=== PATIENT | male | born 1990 | race Caucasian/White ===

== ENCOUNTER 2017-06-19 16:53 | Emergency (ER) | payer SELFPAY, OTHER ==
[2017-06-19] MEDS: NS 1,000 ML IV (18:34)
[2017-06-19 18:41] LABS: BASO % 0.4 % (0.0-1.0); EOS # 0.4 10^3/uL (0.0-0.50); EOS % 3.6 % (0.0-3.0); IMMATURE GRANULOCYTE # 0.1 10^3/uL (0-0); IMMATURE GRANULOCYTE % 0.5 % (0-0); LYMPH # 2.4 10^3/uL (1.5-6.5); LYMPH % 23.3 % (24.0-44.0); MEAN CORPUSCULAR HEMOGLOBIN 30.2 pg (27.0-33.0); MEAN CORPUSCULAR HGB CONC 33.2 g/dl (32.0-36.5); MEAN CORPUSCULAR VOLUME 91.1 fl (80.0-96.0); MONO # 0.7 10^3/uL (0.0-0.8); MONO % 6.5 % (0.0-5.0); NEUTROPHILS # 6.9 10^3/uL (1.8-7.7); NEUTROPHILS % 65.7 % (36.0-66.0); PLATELET COUNT, AUTOMATED 254 10^3/uL (150-450); RED CELL DISTRIBUTION WIDTH 12.8 % (11.5-14.5); WHITE BLOOD COUNT 10.4 10^3/uL (4.0-10.0)
[2017-06-19 19:19] LABS: ALBUMIN 3.8 GM/DL (3.2-5.2); ALBUMIN/GLOBULIN RATIO 1.19 (1.00-1.93); ALKALINE PHOSPHATASE 69 U/L (45-117); ALT/SGPT 38 U/L (12-78); AMYLASE 43 U/L (25-115); ANION GAP 5 MEQ/L (8-16); AST/SGOT 18 U/L (7-37); BILIRUBIN,DIRECT < 0.1 MG/DL (0.0-0.2); BILIRUBIN,TOTAL 0.2 MG/DL (0.2-1.0); BLOOD UREA NITROGEN 16 MG/DL (7-18); CALCIUM LEVEL 8.2 MG/DL (8.5-10.1); CARBON DIOXIDE LEVEL 30 MEQ/L (21-32); CHLORIDE LEVEL 107 MEQ/L (98-107); CREATININE FOR GFR 0.76 MG/DL (0.70-1.30); GLOMERULAR FILTRATION RATE > 60.0 (>60); GLUCOSE, FASTING 92 MG/DL (70-105); POTASSIUM SERUM 4.4 MEQ/L (3.5-5.1); SODIUM LEVEL 142 MEQ/L (136-145)
== END 2017-06-19 20:34 | disposition home or self-care (01) ==
LOC: M ED 16:53
DX: R10.11 Right upper quadrant pain (principal); R19.7 Diarrhea, unspecified; K76.0 Fatty (change of) liver, not elsewhere classified
CPT/HCPCS: 76705

== ENCOUNTER 2017-06-28 12:28 | Emergency (ER) | payer SELFPAY | END 2017-06-28 13:57 | disposition left against medical advice (07) | LOC: M ED 12:28 | DX: Z53.21 Procedure and treatment not carried out due to patient leaving prior to being seen by health care provider (principal) | CPT/HCPCS: 99281 ==

== ENCOUNTER → 2018-12-30 | Outpatient (CLI) | payer OTHER ==
[~2018-12-30] MED LIST: ZOFR4TAB14 PO
[2018-12-30 13:45] LABS: HEMATOCRIT 42.4 % (42.0-52.0); HEMOGLOBIN 14.2 g/dl (13.5-17.5); MEAN CORPUSCULAR HEMOGLOBIN 30.5 pg (27.0-33.0); MEAN CORPUSCULAR HGB CONC 33.5 g/dl (32.0-36.5); PLATELET COUNT, AUTOMATED 222 10^3/uL (150-450); RED BLOOD COUNT 4.66 10^6/uL (4.30-6.10); WHITE BLOOD COUNT 6.8 10^3/uL (4.0-10.0)
[2018-12-30 14:12] LABS: ALBUMIN 3.8 GM/DL (3.2-5.2); ALT/SGPT 58 U/L (12-78); BILIRUBIN,TOTAL 0.1 MG/DL (0.2-1.0); BLOOD UREA NITROGEN 16 MG/DL (7-18); CALCIUM LEVEL 8.7 MG/DL (8.5-10.1); CARBON DIOXIDE LEVEL 31 MEQ/L (21-32); CHLORIDE LEVEL 106 MEQ/L (98-107); CREATININE FOR GFR 0.69 MG/DL (0.70-1.30); GLOMERULAR FILTRATION RATE > 60.0 (>60); GLUCOSE, FASTING 96 MG/DL (70-100); POTASSIUM SERUM 4.6 MEQ/L (3.5-5.1); SODIUM LEVEL 140 MEQ/L (136-145); TOTAL PROTEIN 7.1 GM/DL (6.4-8.2)
[2018-12-30 14:31] LABS: HEPATITIS B SURFACE ANTIGEN NEGATIVE (NEGATIVE)
[2018-12-30 14:59] LABS: HEPATITIS C VIRUS ABY INDEX 0.1 INDEX (<0.8); HIV 1&2 SCREEN CENTAUR NEGATIVE (NEGATIVE)
[2018-12-30 15:21] LABS: CHLAMYDIA DNA AMPLIFICATION NEGATIVE (NEGATIVE); GC DNA AMPLIFICATION NEGATIVE (NEGATIVE)
--- NOTE | 2018-12-30 15:33 | ECGEPIP ---
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
== END ==
LOC: M LAB 12:51
PROVIDERS: ATTEND Family Medicine
DX: F11.20 Opioid dependence, uncomplicated (principal)

== ENCOUNTER 2019-01-15 01:13 | Emergency (ER) | payer OTHER ==
[~2019-01-15] VITALS: Ht 175.3 cm; Wt 134.1 kg
[2019-01-15 01:13] VITALS: BP 142/70
[2019-01-15] MEDS ORDERED: IPRATROPIUM 0.5MG/ALBUTEROL 2.5MG INH SOL UD 3ML (DUONEB)(J7620) NEB ONE (04:45)
[2019-01-15] MEDS ORDERED: ACETAMINOPHEN TAB 650MG DOSE (2X325MG) PO ONE (04:45)
[2019-01-15 05:25] LABS: BASO % 0.2 % (0.0-1.0); EOS # 0.2 10^3/uL (0.0-0.50); EOS % 1.3 % (0.0-3.0); HEMATOCRIT 40.3 % (42.0-52.0); HEMOGLOBIN 13.4 g/dl (13.5-17.5); LYMPH # 3.2 10^3/uL (1.5-6.5); LYMPH % 20.2 % (24.0-44.0); MEAN CORPUSCULAR HEMOGLOBIN 30.9 pg (27.0-33.0); MEAN CORPUSCULAR HGB CONC 33.3 g/dl (32.0-36.5); MEAN CORPUSCULAR VOLUME 93.1 fl (80.0-96.0); MONO # 1.1 10^3/uL (0.0-0.8); MONO % 6.7 % (0.0-5.0); NEUTROPHILS # 11.4 10^3/uL (1.8-7.7); NEUTROPHILS % 71.3 % (36.0-66.0); PLATELET COUNT, AUTOMATED 203 10^3/uL (150-450); RED BLOOD COUNT 4.33 10^6/uL (4.30-6.10); WHITE BLOOD COUNT 15.9 10^3/uL (4.0-10.0)
[2019-01-15 05:44] LABS: BLOOD UREA NITROGEN 13 MG/DL (7-18); CALCIUM LEVEL 8.3 MG/DL (8.5-10.1); CARBON DIOXIDE LEVEL 30 MEQ/L (21-32); CHLORIDE LEVEL 105 MEQ/L (98-107); CREATININE FOR GFR 0.76 MG/DL (0.70-1.30); GLOMERULAR FILTRATION RATE > 60.0 (>60); GLUCOSE, FASTING 90 MG/DL (70-100); POTASSIUM SERUM 4.6 MEQ/L (3.5-5.1); SODIUM LEVEL 140 MEQ/L (136-145)
[2019-01-15] MEDS ORDERED: PRED5PAK PO (05:55)
[2019-01-15] MEDS ORDERED: AZIT-12 PO (05:55)
[2019-01-15] MEDS ORDERED: AZITHROMYCIN 250 MG TAB PO ONE (06:00)
--- NOTE | 2019-01-17 15:01 | REP ---
PA and lateral chest: Comparison is 10/28/2015. The lung ibrahim are clear. The cardiac size is normal. The nguyen, mediastinum, and skeletal structures are unremarkable. Impression: Negative PA and lateral chest. There is no interval change. Electronically Signed by Ap Medeiros MD 01/15/2019 07:37 A
== END 2019-01-15 06:24 | disposition home or self-care (01) ==
LOC: M ED 01:13
DX: J20.9 Acute bronchitis, unspecified (principal); D72.829 Elevated white blood cell count, unspecified; R07.1 Chest pain on breathing; F17.210 Nicotine dependence, cigarettes, uncomplicated

== ENCOUNTER 2019-02-28 12:38 | Emergency (ER) | payer OTHER ==
[~2019-02-28] VITALS: Ht 175.3 cm; Wt 138.6 kg
[2019-02-28 12:38] VITALS: BP 140/59
[~2019-02-28 12:38] MED LIST changes: +AZIT-12 PO; +PRED5PAK PO
[2019-02-28] MEDS ORDERED: KETOROLAC TROMETHAMINE 10 MG TAB PO ONE (14:15)
== END 2019-02-28 16:46 | disposition left against medical advice (07) ==
LOC: M ED 12:38
DX: S79.922A Unspecified injury of left thigh, initial encounter (principal); W01.0XXA Fall on same level from slipping, tripping and stumbling without subsequent striking against object, initial encounter; Y92.018 Other place in single-family (private) house as the place of occurrence of the external cause; G47.33 Obstructive sleep apnea (adult) (pediatric)

== ENCOUNTER 2020-06-07 17:25 | Emergency (ER) | payer OTHER ==
[~2020-06-07] VITALS: Ht 172.7 cm; Wt 140.9 kg
[~2020-06-07 17:25] MED LIST changes: +AMLO1TAB24 PO; +CLON0.3T PO; +METO1TAB87 PO
[2020-06-07 18:30] VITALS: BP 143/72
[2020-06-08] MEDS ORDERED: METH10SO PO (07:56)
== END 2020-06-07 19:15 | disposition home or self-care (01) ==
LOC: EDBD 17:25 → M ED 17:25
DX: J38.7 Other diseases of larynx (principal); F11.10 Opioid abuse, uncomplicated; F17.210 Nicotine dependence, cigarettes, uncomplicated

== ENCOUNTER 2020-06-08 06:41 | Inpatient (IN) | payer OTHER ==
[~2020-06-08] VITALS: Ht 172.7 cm; Wt 139.5 kg
[2020-06-08] VITALS (16 sets, daily range): BP systolic 109–136; BP diastolic 54–72; O2SAT 96–100
[2020-06-08] MEDS ORDERED: ROCURONIUM BROMIDE 50 MG/5 ML VIAL IV ONE (07:15)
[2020-06-08] MEDS ORDERED: ETOMIDATE INJ 20MG/10ML VIAL IV ONE (07:15)
[2020-06-08] MEDS ORDERED: PIPERACILLIN/TAZOBACTAM SOD 3.375 GM in D5W MINI-BAG PLUS 50 ML IV ONE (07:30)
[2020-06-08] MEDS ORDERED: VANCOMYCIN HCL 2,000 MG in D5W 500 ML IV ONE (07:30)
[2020-06-08] MEDS: propofoL 1,000 MG in IV 1 EA IV SCH ×12 (07:35→23:45)
[2020-06-08 07:38] LABS: ABG BASE EXCESS -2.5 (-2.0-2.0); ABG HCO3 28.6 MEQ/L (22.0-26.0); ABG O2 SATURATION 95.9 % (95.0-99.0); ABG PARTIAL PRESSURE O2 102.1 mmHg (75.0-100.0); ABG STANDARD HCO3 22.4 MEQ/L (22.0-26.0); ABG TOTAL CO2 31.2 MEQ/L (22.0-29.0)
[2020-06-08 07:40] LABS: ABG PARTIAL PRESSURE CO2 85.5 mmHg (35.0-45.0); ABG pH (ARTERIAL) 7.142 UNITS (7.350-7.450)
--- NOTE | 2020-06-08 07:43 | REP ---
INDICATION: DYSPNEA/COUGH COMPARISON: 01/15/2019 TECHNIQUE: Portable AP view of the chest FINDINGS: Endotracheal tube approximately 1.6 cm above the sid and may warrant repositioning. There appears to be near complete collapse to the right upper lobe along with large left upper lobe consolidation and right perihilar airspace disease. Associated volume loss is noted. No obvious effusion or pneumothorax. The cardiac silhouette is within normal limits for portable technique and stable compared to 2019. Skeletal structures appear intact. IMPRESSION: 1. Endotracheal tube 1.6 cm above the sid. 2. Findings suggesting right upper lobe collapse with multifocal, bilateral infiltrates. <Electronically signed by Alexandro Redd > 06/08/20 [id number]
[2020-06-08] MEDS ORDERED: METH10SO PO (07:56)
[2020-06-08] MEDS ORDERED: VANCOMYCIN HCL 1,000 MG, VIAL MATE ADAPTER 1 EACH in D5W 250 ML IV ONE ×4 (08:00→14:00)
[2020-06-08 08:55] LABS: BASO % 0.1 % (0.0-1.0); EOS % 0.1 % (0.0-3.0); HEMATOCRIT 38.8 % (42.0-52.0); HEMOGLOBIN 11.6 g/dl (13.5-17.5); LYMPH # 0.7 10^3/uL (1.5-5.0); LYMPH % 7.8 % (24.0-44.0); MEAN CORPUSCULAR HEMOGLOBIN 29.6 pg (27.0-33.0); MEAN CORPUSCULAR HGB CONC 29.9 g/dl (32.0-36.5); MONO # 0.1 10^3/uL (0.0-0.8); MONO % 1.6 % (0.0-5.0); NEUTROPHILS # 7.7 10^3/uL (1.5-8.5); NEUTROPHILS % 89.9 % (36.0-66.0); PLATELET COUNT, AUTOMATED 161 10^3/uL (150-450); RED BLOOD COUNT 3.92 10^6/uL (4.30-6.10); WHITE BLOOD COUNT 8.5 10^3/uL (4.0-10.0)
[2020-06-08 09:05] LABS: AMPHETAMINES LEVEL URINE NEGATIVE (NEGATIVE); BARBITURATES URINE NEGATIVE (NEGATIVE); BENZODIAZEPINES URINE NEGATIVE (NEGATIVE); CANNABINOIDS URINE POSITIVE (NEGATIVE); COCAINE METABOLITE URINE NEGATIVE (NEGATIVE); METHADONE URINE POSITIVE (NEGATIVE); OPIATES URINE NEGATIVE (NEGATIVE); PHENCYCLIDINE URINE NEGATIVE (NEGATIVE)
[2020-06-08 09:18] LABS: ALBUMIN 3.5 GM/DL (3.2-5.2); ALT/SGPT 75 U/L (12-78); BILIRUBIN,DIRECT 0.2 MG/DL (0.0-0.2); BILIRUBIN,TOTAL 0.3 MG/DL (0.2-1.0); BLOOD UREA NITROGEN 9 MG/DL (7-18); CALCIUM LEVEL 8.3 MG/DL (8.5-10.1); CARBON DIOXIDE LEVEL 29 MEQ/L (21-32); CHLORIDE LEVEL 103 MEQ/L (98-107); CK-MB VALUE MASS 3.5 NG/ML (<3.6); CPK CREATINE PHOSPHOKINASE 228 U/L (39-308); CREATININE FOR GFR 0.76 MG/DL (0.70-1.30); ETHYL ALCOHOL (ETHANOL) 0.003 % (0.000-0.010); GLOMERULAR FILTRATION RATE > 60.0 (>60); GLUCOSE, FASTING 227 MG/DL (70-100); MB/CK RELATIVE INDEX 1.54 (< OR =4); NT-PRO BNP 810 PG/ML (<125); POTASSIUM SERUM 3.8 MEQ/L (3.5-5.1); SODIUM LEVEL 140 MEQ/L (136-145); TOTAL PROTEIN 6.7 GM/DL (6.4-8.2); TROPONIN I 0.08 NG/ML (< 0.10)
[2020-06-08] MEDS ORDERED: PROPOFOL 1,000 MG/100 ML VIAL As Ordered ONE (10:02)
[2020-06-08] MEDS: ALBUTEROL SULFATE 2.5 MG/0.5 ML INH NEB SOLN NEB SCH ×4 (11:02→23:20)
[2020-06-08 11:21] LABS: ABG BASE EXCESS 2.4 (-2.0-2.0); ABG HCO3 28.5 MEQ/L (22.0-26.0); ABG O2 SATURATION 72.8 % (95.0-99.0); ABG PARTIAL PRESSURE CO2 51.1 mmHg (35.0-45.0); ABG STANDARD HCO3 26.1 MEQ/L (22.0-26.0); ABG TOTAL CO2 30.1 MEQ/L (22.0-29.0); ABG pH (ARTERIAL) 7.365 UNITS (7.350-7.450)
[2020-06-08 11:23] LABS: ABG PARTIAL PRESSURE O2 39.2 mmHg (75.0-100.0)
[2020-06-08 11:30] LABS: INR 0.86; PROTHROMBIN TIME 11.9 SECONDS (12.5-14.3)
[2020-06-08 11:34] LABS: D-DIMER QUANT 1114.69 ng/ml (<500)
[2020-06-08 12:07] LABS: ALBUMIN 3.3 GM/DL (3.2-5.2); BILIRUBIN,DIRECT 0.2 MG/DL (0.0-0.2); BILIRUBIN,TOTAL 0.5 MG/DL (0.2-1.0); C REACTIVE PROTEIN QUANTITATIV 0.59 MG/DL (0.00-0.30); TROPONIN I 0.24 NG/ML (< 0.10)
[2020-06-08] MEDS: ENOXAPARIN 80MG/0.8ML SYRINGE (J1650 PER 10MG) SC SCH ×2 (12:08→22:04)
[2020-06-08] MEDS: dexameTHASONE 20MG/5ML VIAL (J1100 PER 1MG) IV SCH ×2 (12:08→22:03)
[2020-06-08] MEDS: PANTOPRAZOLE 40MG VIAL (C9113 PER 1) IV SCH (12:08)
[2020-06-08] MEDS ORDERED: SODIUM CHLORIDE 0.9% INJ 10 ML SYR IV ONE (13:00)
[2020-06-08] MEDS ORDERED: propofoL 200 MG/20 ML VIAL ONE (14:31)
[2020-06-08] MEDS ORDERED: ETOMIDATE INJ 20MG/10ML VIAL ONE (14:31)
[2020-06-08] MEDS: PIPERACILLIN/TAZOBACTAM SOD 4.5 GM in D5W MINI-BAG PLUS 50 ML IV SCH ×2 (15:00→20:08)
--- NOTE | 2020-06-08 17:15 | CCN ---
CRITICAL CARE NOTE DATE: 06/08/2020 CRITICAL CARE TIME: 2 hours and 30 minutes, this excludes all procedures. SUBJECTIVE: I was called to the patient's bedside. Apparently, the patient has been having numerous emergency room visits for complaints of upper airway issues. The patient had a CT scan of the neck. This was during the first emergency room evaluation. The second emergency room evaluation, which was yesterday, did not repeat any imaging. I was actually called. I was not consulted. I did not see the patient, but I was called as side consult as the patient had claimed to be intubated for 25 days in [place]. 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 [place] that by the time of discharge that this pneumonia had resolved. This was in April. On yesterday's presentation according to the nurse practitioner who saw the patient in the emergency room, the patient had no stridor. The patient was conversing well without any issues and with 100% oxygen saturation on room air. There was no chest imaging performed yesterday, no respiratory viral panel performed yesterday. The patient was discharged home with potential follow up with ENT, although that is not clear by the documentation. The patient then presented this morning with severe hypoxia that is in the 50% range, was intubated, apparently a very difficult intubation by the emergency room physician, who was unable to intubate the patient despite his large size with an 8.0 endotracheal tube and had to covert to a 6.0 endotracheal tube. He states there is a lot of stenosis of the airway. The patient apparently did self extubate at [facility]. (later when speaking with mom, she states he pulled out his NGT not ETT) Therefore, will continue to keep the patient very sedated. It does appear most likely the patient will require tracheostomy in order to facility extubation. The biggest confounding issue is now the patient is COVID positive, I believe he has COVID pneumonia and he has bilateral diffuse infiltrates. There is a bit more dense more infiltrate in the right upper lobe; however, I believe this is from right mainstem intubation. The patient on evaluation at bedside is sedated. No one available to give history. The emergency room did request records from [facility] where he was admitted from 04/30/2020 to 05/27/2020. He had altered level of consciousness thought to be second to his substance abuse. He had acute respiratory failure with hypoxia due to his drug use events and encephalopathy. They felt that the right lower lobe infection due to multidrug resistance Acetobacter was resolved. PAST MEDICAL HISTORY: 1. Hypertension. 2. 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 3. Morbid obesity. 4. Possible laryngeal tracheal trauma from intubation. Home meds: clonidine and amlodipine REVIEW OF SYSTEMS: Unobtainable. SOCIAL HISTORY: Unobtainable. FAMILY HISTORY: Unobtainable. PHYSICAL EXAMINATION: Temperature is 97.6, pulse is 85, respiratory rate 24, blood pressure is 121/53. Oxygen saturation currently 98% on 1.0 FiO2 on mechanical ventilation, volume control, tidal volume of 420, respiratory rate of 16 and a PEEP of 5. General: Sedated on mechanical ventilation. Restraints are in place because of his history of withdrawing endotracheal tubes and the severity of his airway. HEENT: Sclerae are clear. Pupils are pinpoint, but reactive. Mucous membranes are moist. Teeth in fairly good condition. Neck is supple. Large circumference without mass or lesion. Lymph: No cervical, supraclavicular or axillary adenopathy. Cardiac: Distance S1, S2 without audible murmur, rub or gallop. No elevated JVP. There is significant peripheral edema pitting to the level of the knee. Pulmonary: In general, clear, but distant breath sounds. No rales, rhonchi or wheezes. No dullness to percussion. No accessory muscle use. Abdomen is obese without discernible hepatosplenomegaly. No masses or hernia. There are few bruises over the anterior portion of his abdomen. I assume this is an area of prior Lovenox injections. Extremities: No cyanosis or clubbing. There is edema as mentioned above. Skin pale without rashes, jaundice or bruising. Neurologic: No motion at this point in time. No purposeful movements. However, the patient did have purposeful movements prior to intubation. Has been sedated to avoid removal of endotracheal tube. LABORATORY EVALUATION: Shows arterial blood gas 7.214, pCO2 of 86 and a pO2 of 102. White blood cell count is 8.5, hemoglobin 11.6, hematocrit of 38.8 and a platelet count of 161 with 89% neutrophilia. Lactic acid is 2.3. Sodium is 140, potassium is 3.8, chloride 103, bicarbonate 29, BUN of 9, creatinine of 0.76 and a fasting glucose of 227. Calcium is 8.3. AST 84. BNP elevated at 810. Troponin is negative. Albumin is normal at 3.5. His urine from this morning is positive for methadone and cannabinoids. Alcohol level is unremarkable. COVID serologies are still pending The patient is COVID positive on respiratory panel. Chest x-ray shows diffuse infiltrate with right mainstem intubation. Endotracheal tube has been pulled back with some improvement of the right upper lobe. Electrocardiogram (EKG) shows a normal sinus rhythm with a pulse of 85. No evidence of ST abnormalities. IMPRESSION: 1. Acute hypoxic respiratory failure from COVID, 2. Pneumonia. I placed the patient on remdesivir, obtaining his inflammatory markers. Depending on the results of this, may be a candidate for tocilizumab. Will place the patient on dexamethasone. I placed him on prophylactic antibiotics because of the severity of his illness. 3. Drug abuse with chronic methadone. I am not sure that he has adequate sedation narcotics and treatment of pain. Will monitor for signs o f withdrawal. 4. Morbid obesity with difficult airway. Would likely need tracheostomy. It should be done when clinically appropriate. Waiting 10 days prior to attempting tracheostomy may lead to avoidable complications and worsening stenosis. 5. . As far as the deep venous thrombosis (DVT) prophylaxis he is on, Lovenox high dose twice a day. 6. Gastrointestinal prophylaxis with Protonix, TEDs and [place]. Overall, the patient has very guarded prognosis Critical care time was 2 hours and 30 minutes. This excludes all procedures. [facility]
[2020-06-08] MEDS: CHLORHEXIDINE GLUCONATE 0.12 % 15ML UDC (PERIDEX ORAL RINSE) MT SCH (20:08)
[2020-06-08] MEDS: MIDAZOLAM INJ 2MG/2ML VIAL (J2250 PER 1MG) IV PRN (20:09)
[2020-06-08] MEDS: MORPHINE 2 MG/ML 1ML VIAL (J2270) IV PRN (20:09)
[2020-06-08] MEDS: VANCOMYCIN HCL 1,000 MG, VIAL MATE ADAPTER 1 EACH in D5W 250 ML IV SCH (22:04)
[2020-06-09] VITALS (26 sets, daily range): BP systolic 113–174; BP diastolic 55–78; O2SAT 99–100
[2020-06-09] MEDS: propofoL 1,000 MG in IV 1 EA IV SCH ×18 (00:38→23:42)
[2020-06-09] MEDS: MIDAZOLAM INJ 2MG/2ML VIAL (J2250 PER 1MG) IV PRN ×8 (03:20→23:41)
[2020-06-09] MEDS: PIPERACILLIN/TAZOBACTAM SOD 4.5 GM in D5W MINI-BAG PLUS 50 ML IV SCH ×4 (03:20→21:05)
[2020-06-09] MEDS: MORPHINE 2 MG/ML 1ML VIAL (J2270) IV PRN (03:33)
[2020-06-09] MEDS: VANCOMYCIN HCL 1,000 MG, VIAL MATE ADAPTER 1 EACH in D5W 250 ML IV SCH ×4 (04:16→23:20)
[2020-06-09] MEDS: ALBUTEROL SULFATE 2.5 MG/0.5 ML INH NEB SOLN NEB SCH ×6 (04:27→23:31)
[2020-06-09 04:32] LABS: HEMATOCRIT 33.3 % (42.0-52.0); HEMOGLOBIN 10.6 g/dl (13.5-17.5); MEAN CORPUSCULAR HEMOGLOBIN 29.6 pg (27.0-33.0); MEAN CORPUSCULAR HGB CONC 31.8 g/dl (32.0-36.5); PLATELET COUNT, AUTOMATED 163 10^3/uL (150-450); RED BLOOD COUNT 3.58 10^6/uL (4.30-6.10); WHITE BLOOD COUNT 4.3 10^3/uL (4.0-10.0)
[2020-06-09 04:44] LABS: D-DIMER QUANT 796.76 ng/ml (<500)
[2020-06-09 05:06] LABS: BLOOD UREA NITROGEN 11 MG/DL (7-18); CALCIUM LEVEL 8.4 MG/DL (8.5-10.1); CARBON DIOXIDE LEVEL 29 MEQ/L (21-32); CHLORIDE LEVEL 106 MEQ/L (98-107); CREATININE FOR GFR 0.94 MG/DL (0.70-1.30); GLOMERULAR FILTRATION RATE > 60.0 (>60); GLUCOSE, FASTING 130 MG/DL (70-100); POTASSIUM SERUM 3.7 MEQ/L (3.5-5.1); SODIUM LEVEL 142 MEQ/L (136-145)
[2020-06-09 05:07] LABS: ALBUMIN 3.1 GM/DL (3.2-5.2); ALT/SGPT 53 U/L (12-78); BILIRUBIN,DIRECT 0.3 MG/DL (0.0-0.2); BILIRUBIN,TOTAL 0.5 MG/DL (0.2-1.0); C REACTIVE PROTEIN QUANTITATIV 0.98 MG/DL (0.00-0.30); FERRITIN 145 NG/ML (26-388); TOTAL PROTEIN 5.7 GM/DL (6.4-8.2)
[2020-06-09 05:49] LABS: ABG BASE EXCESS 0.8 (-2.0-2.0); ABG HCO3 25.4 MEQ/L (22.0-26.0); ABG O2 SATURATION 99.1 % (95.0-99.0); ABG PARTIAL PRESSURE CO2 40.2 mmHg (35.0-45.0); ABG PARTIAL PRESSURE O2 150.2 mmHg (75.0-100.0); ABG STANDARD HCO3 25.3 MEQ/L (22.0-26.0); ABG TOTAL CO2 26.6 MEQ/L (22.0-29.0); ABG pH (ARTERIAL) 7.418 UNITS (7.350-7.450)
[2020-06-09] MEDS: CHLORHEXIDINE GLUCONATE 0.12 % 15ML UDC (PERIDEX ORAL RINSE) MT SCH ×2 (09:00→21:04)
--- NOTE | 2020-06-09 10:02 | CCN ---
CRITICAL CARE NOTE DATE: 06/09/2020 Critical care time is 69 minutes. This excludes all procedures. SUBJECTIVE: Mr. Saavedra remains on mechanical ventilation, sedated. He does arouse easily with lightening of sedation. Currently oxygen saturation is 99% on 0.50 FiO2. I have turned him down to 35%. He has no fever or arrhythmias overnight. COVID therapy is initiated. His inflammatory markers are trending down. I have not used Tocilizumab as of yet. PHYSICAL EXAMINATION: VITAL SIGNS: Temperature is 98.1, pulse is 95, respiratory rate of 20, blood pressure is 133/63. Mean arterial pressure of 86, 99% on 0.50 FiO2. GENERAL APPEARANCE: Sedated, on mechanical ventilation, no tachypnea, tachycardia. HEENT: Sclerae clear and anicteric. Pupils small but reactive. They are symmetric. Mucous membranes are moist. Tongue is midline. NECK: Supple, no tracheal deviation or mass. LYMPH: No cervical, supraclavicular or axillary adenopathy. CARDIAC: Regular, S1, S2, without audible murmurs, rubs or gallops. No elevated JVP. Minimal peripheral edema. PULMONARY: Clear to auscultation without rales, rhonchi or wheezes. ABDOMEN: Soft, nontender, nondistended, no hepatosplenomegaly. No masses or hernia. EXTREMITIES: No cyanosis. Clubbing with minimal edema. SKIN: Pale without rash, jaundice or bruising. LABORATORY EVALUATION: White blood cell count of 4.3, hemoglobin 10.6, platelet count of 163 with a sodium of 142, potassium 3.7, chloride 106, bicarbonate of 29, BUN 11, creatinine of 0.94 with a fasting glucose of 130. Calcium is 8.4. Total bilirubin 0.5, albumin is 3.1. CRP is 0.98. Ferratin is 145. D-dimer is down to 796. Lactic acid at 1.5. LDH is 303 as of yesterday. It has not been reported yet today although it has been ordered. Arterial blood gas shows a pH of 7.42, pco2 of 40, pO2 of 150. IMPRESSION: 1. Hypoxic respiratory failure with difficult airway; may need tracheostomy given the description of the airway, his prior intubation and possible tracheal stenosis. We will continue to monitor him on mechanical ventilation. I will consult ENT, when they are available tomorrow as there is no one covering this weekend. 2. As far as his COVID pneumonia, we are continuing Decadron and Remdesivir. At this point in time, no indication for Tocilizumab. 3. DVT prophylaxis with high dose Lovenox based on his weight. 4. GI prophylaxis with Protonix. 5. Nutrition: we will support him with nutrition starting tube feeds today. If he tolerates these well, these will be titrated up. 6. He is on Vancomycin and Zosyn. We will discontinue after a few days if he continues to show clinical improvement. It does appear that this was viral. At this point in time in there is no evidence of bacterial concomitant infection. CONDITION: The patient's prognosis remains very guarded especially given his tenuous airway. MTDD
[2020-06-09] MEDS: ENOXAPARIN 80MG/0.8ML SYRINGE (J1650 PER 10MG) SC SCH ×2 (10:34→21:05)
[2020-06-09] MEDS: PANTOPRAZOLE 40MG VIAL (C9113 PER 1) IV SCH (11:56)
[2020-06-09] MEDS: dexameTHASONE 20MG/5ML VIAL (J1100 PER 1MG) IV SCH ×2 (11:56→23:20)
--- NOTE | 2020-06-09 12:20 | ECGEPIP ---
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
[2020-06-09] MEDS: SODIUM CHLORIDE 0.9% INJ 10 ML SYR IV SCH (13:11)
[2020-06-10] VITALS (24 sets, daily range): BP systolic 119–178; BP diastolic 57–111; O2SAT 100
[2020-06-10] MEDS: PIPERACILLIN/TAZOBACTAM SOD 4.5 GM in D5W MINI-BAG PLUS 50 ML IV SCH ×4 (03:03→20:37)
[2020-06-10] MEDS: ALBUTEROL SULFATE 2.5 MG/0.5 ML INH NEB SOLN NEB SCH ×5 (03:36→19:55)
[2020-06-10] MEDS: VANCOMYCIN HCL 1,000 MG, VIAL MATE ADAPTER 1 EACH in D5W 250 ML IV SCH ×2 (04:59→11:46)
[2020-06-10] MEDS: propofoL 1,000 MG in IV 1 EA IV SCH ×12 (04:59→22:24)
[2020-06-10 05:49] LABS: HEMATOCRIT 34.6 % (42.0-52.0); HEMOGLOBIN 10.9 g/dl (13.5-17.5); MEAN CORPUSCULAR HEMOGLOBIN 29.4 pg (27.0-33.0); MEAN CORPUSCULAR HGB CONC 31.5 g/dl (32.0-36.5); MEAN CORPUSCULAR VOLUME 93.3 fl (80.0-96.0); PLATELET COUNT, AUTOMATED 194 10^3/uL (150-450); RED BLOOD COUNT 3.71 10^6/uL (4.30-6.10); WHITE BLOOD COUNT 4.2 10^3/uL (4.0-10.0)
[2020-06-10 05:55] LABS: ABG BASE EXCESS 4.8 (-2.0-2.0); ABG HCO3 29.1 MEQ/L (22.0-26.0); ABG O2 SATURATION 96.8 % (95.0-99.0); ABG PARTIAL PRESSURE CO2 42.1 mmHg (35.0-45.0); ABG PARTIAL PRESSURE O2 88.7 mmHg (75.0-100.0); ABG STANDARD HCO3 28.8 MEQ/L (22.0-26.0); ABG TOTAL CO2 30.4 MEQ/L (22.0-29.0); ABG pH (ARTERIAL) 7.458 UNITS (7.350-7.450)
[2020-06-10 06:11] LABS: ALT/SGPT 80 U/L (12-78); BILIRUBIN,TOTAL 0.5 MG/DL (0.2-1.0); BLOOD UREA NITROGEN 10 MG/DL (7-18); C REACTIVE PROTEIN QUANTITATIV 0.55 MG/DL (0.00-0.30); CALCIUM LEVEL 8.5 MG/DL (8.5-10.1); CARBON DIOXIDE LEVEL 29 MEQ/L (21-32); CHLORIDE LEVEL 106 MEQ/L (98-107); CREATININE FOR GFR 0.76 MG/DL (0.70-1.30); FERRITIN 131 NG/ML (26-388); GLOMERULAR FILTRATION RATE > 60.0 (>60); GLUCOSE, FASTING 135 MG/DL (70-100); POTASSIUM SERUM 3.6 MEQ/L (3.5-5.1); SODIUM LEVEL 141 MEQ/L (136-145); TOTAL PROTEIN 5.8 GM/DL (6.4-8.2)
[2020-06-10] MEDS: MIDAZOLAM INJ 2MG/2ML VIAL (J2250 PER 1MG) IV PRN ×9 (08:08→19:22)
[2020-06-10] MEDS: MORPHINE 2 MG/ML 1ML VIAL (J2270) IV PRN ×4 (08:35→19:13)
[2020-06-10] MEDS: HEPARIN SOD (PORCINE) 5000UNITS/ML 1ML VIAL/SYRINGE SQ SCH ×2 (09:12→16:29)
[2020-06-10] MEDS: CHLORHEXIDINE GLUCONATE 0.12 % 15ML UDC (PERIDEX ORAL RINSE) MT SCH ×2 (09:12→20:37)
--- NOTE | 2020-06-10 09:38 | CCN ---
CRITICAL CARE NOTE DATE: 06/10/2020 CRITICAL CARE TIME: 49 minutes; this excludes all procedures. SUBJECTIVE: The patient is awake on sedation vacation this morning. Placed on spontaneous breathing trial of 5/8. Pulling tidal volumes of around 530. Does have an air leak around a 6.0 endotracheal tube. This is at 22 cm at the lip. History of difficult intubation. No arrhythmias on telemetry overnight. OBJECTIVE: VITAL SIGNS: Temperature is 98.8, pulse is 87, respiratory rate is 22, blood pressure 160/75 with a mean arterial pressure of 103. Oxygen saturation on 0.30 FiO2 is 97%. GENERAL: Awake, responsive to command. Showing higher level neurologic function. HEENT: Sclerae clear and anicteric. Pupils equal and reactive to light. Mucous membranes are moist without lesions. Oropharynx is crowded without erythema or exudate. Tongue is midline. NECK: Supple. No tracheal deviation or mass. LYMPH: No cervical, supraclavicular, or axillary adenopathy. CARDIAC: Regular S1, S2 without audible murmur, rub, or gallop. No elevated JVP. There is minimal lower extremity edema. PULMONARY: Clear to auscultation without rales, rhonchi, or wheezes. No dullness to percussion. No accessory muscle. ABDOMEN: Obese, soft, nontender, and nondistended. No hepatosplenomegaly. No masses or hernia. EXTREMITIES: No cyanosis, clubbing, or edema. SKIN: There is minimal bruising under the left thigh. No jaundice or rash. MUSCULOSKELETAL: Normal muscle development. No evidence of fracture or joint effusion. NEUROLOGIC: No unilateral weakness. No tremor. No asterixis. Able to follow commands and moves all extremities appropriately. LABORATORY EVALUATION: Shows a white blood cell count of 4.2, hemoglobin of 10.9, platelet count of 194,000. Sodium is 141, potassium 3.6, chloride 106, bicarb 29, BUN 10, creatinine 0.76 with a glucose of 135. Arterial blood gas shows a pH of 7.46, pCO2 of 42, PaO2 of 88.7 on 0.30 FiO2. Calcium is 8.5. Ferritin down to 131. CRP down to 0.55. Total protein of 5.8 with an albumin of 3.0. D-dimer is down to 453. IMAGING: Chest x-ray is pending for this morning. IMPRESSION: 1. Respiratory failure from COVID pneumonia. It does appear that the patient is nearing extubation. I have placed him on a spontaneous breathing trial today. At this point in time, inflammatory markers are trending down. No indication for tocilizumab. Remains on remdesivir and steroids. Because of his bruising and obesity, I am decreasing his Lovenox to regular prophylactic doses as his D-dimer is lower. 2. Reported upper airway stenosis. He has a good air leak on exam. I expect he will be extubatable rather than proceeding with trach; however, I am asking ENT to do an upper laryngoscopy. 3. Hypertension: The patient has a history of hypertension. I will add Norvasc back on today. RYAND
--- NOTE | 2020-06-10 09:42 | REP ---
INDICATION: respiratory failure/covid COMPARISON: None. TECHNIQUE: Portable AP view of the chest FINDINGS: Endotracheal tube and nasogastric tube are in satisfactory stable position. The mediastinum and cardiac silhouette are stable and within normal limits for portable technique. Previously noted right upper lobe infiltrate has resolved and scattered bilateral opacities are significantly improved with mild residual bilateral perihilar and right basilar opacities suggested on current examination. No effusion. No pneumothorax. IMPRESSION: 1. Lines and tubes in satisfactory position. 2. Considerable improvement to the bilateral lung ibrahim. <Electronically signed by Alexandro Redd > 06/10/20 [id number]
[2020-06-10] MEDS: dexameTHASONE 20MG/5ML VIAL (J1100 PER 1MG) IV SCH ×2 (10:33→22:24)
[2020-06-10] MEDS: amLODIPine 10 MG TAB PO SCH (10:33)
[2020-06-10] MEDS: PANTOPRAZOLE 40MG VIAL (C9113 PER 1) IV SCH (11:46)
[2020-06-10] MEDS: SODIUM CHLORIDE 0.9% INJ 10 ML SYR IV SCH ×2 (13:04→14:44)
[2020-06-10] MEDS ORDERED: MIDAZOLAM INJ 2MG/2ML VIAL (J2250 PER 1MG) IV STA (19:28)
[2020-06-11] VITALS (17 sets, daily range): BP systolic 129–193; BP diastolic 60–89
[2020-06-11] MEDS: propofoL 1,000 MG in IV 1 EA IV SCH ×6 (01:35→09:12)
[2020-06-11] MEDS: PIPERACILLIN/TAZOBACTAM SOD 4.5 GM in D5W MINI-BAG PLUS 50 ML IV SCH ×4 (02:16→20:49)
[2020-06-11] MEDS: ALBUTEROL SULFATE 2.5 MG/0.5 ML INH NEB SOLN NEB SCH ×7 (03:42→22:45)
[2020-06-11 05:12] LABS: HEMATOCRIT 35.2 % (42.0-52.0); HEMOGLOBIN 11.6 g/dl (13.5-17.5); MEAN CORPUSCULAR HEMOGLOBIN 30.6 pg (27.0-33.0); MEAN CORPUSCULAR VOLUME 92.9 fl (80.0-96.0); PLATELET COUNT, AUTOMATED 222 10^3/uL (150-450); RED BLOOD COUNT 3.79 10^6/uL (4.30-6.10); WHITE BLOOD COUNT 5.6 10^3/uL (4.0-10.0)
[2020-06-11 05:34] LABS: ALBUMIN 3.1 GM/DL (3.2-5.2); ALT/SGPT 149 U/L (12-78); BILIRUBIN,TOTAL 0.7 MG/DL (0.2-1.0); BLOOD UREA NITROGEN 12 MG/DL (7-18); C REACTIVE PROTEIN QUANTITATIV 0.41 MG/DL (0.00-0.30); CARBON DIOXIDE LEVEL 29 MEQ/L (21-32); CHLORIDE LEVEL 106 MEQ/L (98-107); CREATININE FOR GFR 0.65 MG/DL (0.70-1.30); FERRITIN 152 NG/ML (26-388); GLOMERULAR FILTRATION RATE > 60.0 (>60); GLUCOSE, FASTING 110 MG/DL (70-100); POTASSIUM SERUM 3.9 MEQ/L (3.5-5.1); SODIUM LEVEL 141 MEQ/L (136-145); TOTAL PROTEIN 5.8 GM/DL (6.4-8.2)
[2020-06-11 05:34] LABS: ABG BASE EXCESS 5.1 (-2.0-2.0); ABG HCO3 29.3 MEQ/L (22.0-26.0); ABG O2 SATURATION 98.3 % (95.0-99.0); ABG PARTIAL PRESSURE CO2 41.4 mmHg (35.0-45.0); ABG PARTIAL PRESSURE O2 110.8 mmHg (75.0-100.0); ABG STANDARD HCO3 29.1 MEQ/L (22.0-26.0); ABG TOTAL CO2 30.5 MEQ/L (22.0-29.0); ABG pH (ARTERIAL) 7.467 UNITS (7.350-7.450)
--- NOTE | 2020-06-11 08:21 | CCN ---
CRITICAL CARE NOTE DATE: 06/11/2020 CRITICAL CARE TIME: 61 minutes; this excludes all procedures. SUBJECTIVE: Mr. Saavedra was very active last night swinging his arm possibly endangering himself; therefore, he got some Versed. This morning, he is arousable. We will ensure that he is ready for extubation around noon. The plan is to take him to the OPP suite with negative pressure to perform extubation and be ready for urgent trach if necessary. The patient's mother has been updated. No fevers overnight. No hypotension. OBJECTIVE: VITAL SIGNS: Temperature 99.7, pulse of 66, respiratory rate 22, blood pressure 147/76, oxygen saturation is 96% on 0.30 FiO2. INTAKE AND OUTPUT: 2385 in, 2825 out; net negative 440. GENERAL: Currently sleeping easily arousable. No apparent distress. HEENT: Sclerae clear and anicteric. Pupils are approximately 5 mm, but reactive. Mucous membranes are moist. Crowded airway. NECK: Supple. No tracheal deviation or mass. Slightly large circumference. LYMPH: No cervical, supraclavicular, or axillary adenopathy. CARDIAC: Regular S1, S2 without audible murmur, rub, or gallop. No elevated JVP. No discernable edema. PULMONARY: Clear to auscultation without rales, rhonchi, or wheezes. No dullness to percussion. ABDOMEN: Obese, soft, nontender, and nondistended. No hepatosplenomegaly. No masses or hernia. EXTREMITIES: No cyanosis, clubbing, or edema. Minimal bruising of the left thigh without evidence of enlargement of the hematoma. LABORATORY EVALUATION: White blood cell count at 5.6, hemoglobin 11.6, platelets of 222,000. Sodium is 141, potassium 3.9, chloride 106, bicarb 29, BUN 12, creatinine 0.65 with a glucose of 110. D-dimer is slightly more elevated at 531. Arterial blood gas this morning shows a pH of 7.47, pCO2 of 41, PaO2 of 111 on 0.30 FiO2. ASSESSMENT AND PLAN: Critical illness due to COVID pneumonia with respiratory failure. Critical attention required for the followin. Respiratory failure secondary to COVID pneumonia. We will likely discontinue IV steroids and antibiotics as long as the patient does not require tracheotomy. 2. Questionable upper airway stenosis with history of recent intubation going for evaluation today under anesthesia. ENT guidance for extubation. If the patient fails extubation will have urgent trach. 3. Hypertension. Better controlled with Norvasc. He will likely need additional control once he is off propofol. He is normally on Clonidine patch at home. 4. Gastrointestinal (GI) prophylaxis with Protonix. 5. Deep vein thrombosis (DVT) prophylaxis. He was changed to heparin yesterday. Will hold in case of the need for trach this morning. Will restart as soon as possible. 6. Nutrition: Currently the patient is n.p.o. for possible procedure.
[2020-06-11] MEDS ORDERED: cloNIDine HCL 0.3 MG/24 HR PATCH TOP SCH (09:00)
[2020-06-11] MEDS: CHLORHEXIDINE GLUCONATE 0.12 % 15ML UDC (PERIDEX ORAL RINSE) MT SCH (09:08)
[2020-06-11] MEDS: amLODIPine 10 MG TAB PO SCH (09:08)
[2020-06-11] MEDS: dexameTHASONE 20MG/5ML VIAL (J1100 PER 1MG) IV SCH ×2 (11:41→22:21)
[2020-06-11] MEDS: PANTOPRAZOLE 40MG VIAL (C9113 PER 1) IV SCH (11:41)
[2020-06-11] MEDS ORDERED: propofoL 200 MG/20 ML VIAL As Ordered ONE (12:44)
[2020-06-11] MEDS ORDERED: ROCURONIUM BROMIDE 50 MG/5 ML VIAL As Ordered ONE (12:44)
[2020-06-11] MEDS ORDERED: PHENYLEPHRINE 0.5% NASAL SPRAY 15 ML As Ordered ONE (12:46)
[2020-06-11] MEDS ORDERED: LIDOCAINE W/EPINEPHRINE 1% 20ML VIAL As Ordered ONE (12:46)
[2020-06-11] MEDS ORDERED: KETAMINE HCL 200 MG/20 ML VIAL As Ordered ONE (12:52)
[2020-06-11] MEDS ORDERED: SUCCINYLCHOLINE 100 MG/5 ML SYRINGE (J0330) As Ordered ONE (14:40)
[2020-06-11] MEDS ORDERED: ATROPINE SULF 0.4 MG/ML 1ML VIAL (J0461) As Ordered ONE (14:40)
[2020-06-11] MEDS ORDERED: PHENYLephrine HCL 500 MCG/5 ML (100MCG/ML) SYRINGE (J2370) As Ordered ONE (14:41)
[2020-06-11] MEDS ORDERED: ePHEDrine SULFATE 25 MG/5 ML(5MG/ML) SYRINGE As Ordered ONE (14:41)
[2020-06-11] MEDS: HEPARIN SOD (PORCINE) 5000UNITS/ML 1ML VIAL/SYRINGE SQ SCH (18:04)
[2020-06-11] MEDS ORDERED: METHADONE 10 MG TAB (S0109) PO ONE (18:30)
[2020-06-12] VITALS (8 sets, daily range): BP systolic 133–186; BP diastolic 63–90
[2020-06-12] MEDS: HEPARIN SOD (PORCINE) 5000UNITS/ML 1ML VIAL/SYRINGE SQ SCH ×3 (01:14→17:22)
[2020-06-12] MEDS: PIPERACILLIN/TAZOBACTAM SOD 4.5 GM in D5W MINI-BAG PLUS 50 ML IV SCH ×2 (03:44→08:15)
[2020-06-12] MEDS: ALBUTEROL SULFATE 2.5 MG/0.5 ML INH NEB SOLN NEB SCH ×5 (03:44→19:38)
[2020-06-12 05:22] LABS: HEMATOCRIT 37.1 % (42.0-52.0); HEMOGLOBIN 12.2 g/dl (13.5-17.5); MEAN CORPUSCULAR HEMOGLOBIN 30.5 pg (27.0-33.0); MEAN CORPUSCULAR HGB CONC 32.9 g/dl (32.0-36.5); MEAN CORPUSCULAR VOLUME 92.8 fl (80.0-96.0); PLATELET COUNT, AUTOMATED 226 10^3/uL (150-450); WHITE BLOOD COUNT 7.4 10^3/uL (4.0-10.0)
[2020-06-12 05:34] LABS: ALBUMIN 3.1 GM/DL (3.2-5.2); ALT/SGPT 148 U/L (12-78); BILIRUBIN,TOTAL 0.6 MG/DL (0.2-1.0); BLOOD UREA NITROGEN 15 MG/DL (7-18); C REACTIVE PROTEIN QUANTITATIV 0.63 MG/DL (0.00-0.30); CALCIUM LEVEL 8.1 MG/DL (8.5-10.1); CARBON DIOXIDE LEVEL 28 MEQ/L (21-32); CHLORIDE LEVEL 108 MEQ/L (98-107); CREATININE FOR GFR 0.65 MG/DL (0.70-1.30); FERRITIN 135 NG/ML (26-388); GLOMERULAR FILTRATION RATE > 60.0 (>60); GLUCOSE, FASTING 107 MG/DL (70-100); POTASSIUM SERUM 3.9 MEQ/L (3.5-5.1); SODIUM LEVEL 142 MEQ/L (136-145); TOTAL PROTEIN 6.6 GM/DL (6.4-8.2)
[2020-06-12 06:09] LABS: ABG BASE EXCESS 3.3 (-2.0-2.0); ABG HCO3 27.1 MEQ/L (22.0-26.0); ABG O2 SATURATION 96.9 % (95.0-99.0); ABG PARTIAL PRESSURE CO2 38.6 mmHg (35.0-45.0); ABG PARTIAL PRESSURE O2 90.8 mmHg (75.0-100.0); ABG STANDARD HCO3 27.4 MEQ/L (22.0-26.0); ABG TOTAL CO2 28.3 MEQ/L (22.0-29.0); ABG pH (ARTERIAL) 7.465 UNITS (7.350-7.450)
[2020-06-12] MEDS: amLODIPine 10 MG TAB PO SCH (08:13)
[2020-06-12] MEDS: METHADONE 10 MG TAB (S0109) PO SCH (08:14)
[2020-06-12] MEDS: SODIUM CHLORIDE 0.9% INJ 10 ML SYR IV SCH (13:00)
[2020-06-12] MEDS: lisinopriL 5 MG TAB PO SCH (13:19)
[2020-06-12] MEDS: dexameTHASONE 20MG/5ML VIAL (J1100 PER 1MG) IV SCH ×2 (13:19→23:03)
[2020-06-12] MEDS: PANTOPRAZOLE 40MG VIAL (C9113 PER 1) IV SCH (13:19)
--- NOTE | 2020-06-12 13:48 | IPNPDOC ---
Text Note Date of Service The patient was seen on 06/12/20. NOTE Subjective: Patient seen and examined at bedside. Awake and alert. Saturating 95% on RA. CXR much improved from the . BP elevated to 180s will need new antihypertensive medication Objective: Constitutional: Doing well overnight. Obese. Awake and alert. No apparent distress HEENT: PEERLA. EOMI Neck: Supple Cardivascular: HS 1+ 2 Present. No murmurs, rubs or gallops appreciated Pulmonary: Clear to auscultation bilaterally. No wheezing/ronchi/rales Abdomen: Soft, nondistended. Non-tender to palpation Extremities: No swelling noted Assessment/Plan 30 yo M hx of HTN and heroin abuse on methadone presenting due to respiratory failure. Diagnosed with COVID on #Respiratory failure likely 2/2 COVID -As per note on 06/08, patient presented to [facility] in [place] with actinomyces pneumonia and drug overdose. D/Jony in April. Returned to ED on 06/08 where he was intubaed in ED. -CXR on 06/12 much improved from 06/08 -S/P Pip yehuda (06/08 - 06/12) -ABG on 06/12 --> 7.46/38/90/27. Improved from 06/08 --> 3.37/51/39/28.5 -Inflammatory markers D-Dimer, CRP, Ferritin downtrending -Patient extubated 06/11 -Hospital Regiment: Remdesivir (06/09 - 06/14), Decadron 6 mg BID (06/08 - ). Protonix 40 mg daily for GI PPX. Albuterol 2.5 q4h PRN #Hypertensive urgency -Normotensive on admission, increasing to SBP > 180s on 06/12. Likely 2/2 Proprofol withdrawal (last administration 06/08) -Norvasc 10 begun 06/10. Lisinopril 5 begun 06/12. Hydralazine PRN IV in place for BP > 180 -May continue with home medications: clonidine patch weekly begun 06/11 + Methadone 20 mg daily #Drug abuse -on Methadone 20 daily and clonidine 0.3 mg BID as per rec meds #Obesity -Complicated care. BMI 46.8 DVT PPX: Heparin 5K q8h Diet: GI soft. Advance as tolerated Disposition: Home VS,Fishbone, I+O VS, Fishbone, I+O Laboratory Tests 06/12/20 04:59 Vital Signs Date Time Temp Pulse Resp B/P (MAP) Pulse Ox O2 Delivery O2 Flow Rate FiO2 06/12/20 13:19 178/84 06/12/20 08:13 52 06/12/20 08:00 96.1 18 98 Room Air 06/12/20 00:00 3.0 06/11/20 13:00 30 I&O- Last 24 Hours up to 6 AM 06/12/20 06:00 Intake Total 1825 ml Output Total 1900 ml Balance -75 ml MAYLIN SEWELL M.D.,PGY-2 Jun 12, 2020 13:48
[2020-06-12] MEDS ORDERED: hydrALAZINE 20MG/ML 1ML VIAL (J0360 PER 20MG) IV PRN (14:00)
[2020-06-13] VITALS (7 sets, daily range): BP systolic 136–155; BP diastolic 63–78
[2020-06-13] MEDS: ALBUTEROL 90 MCG/ACT 8GM HFA INHALER INH SCH ×4 (00:37→11:36)
[2020-06-13] MEDS: HEPARIN SOD (PORCINE) 5000UNITS/ML 1ML VIAL/SYRINGE SQ SCH ×3 (02:01→17:37)
[2020-06-13 06:35] LABS: MEAN CORPUSCULAR HEMOGLOBIN 30.8 pg (27.0-33.0); MEAN CORPUSCULAR HGB CONC 33.3 g/dl (32.0-36.5); MEAN CORPUSCULAR VOLUME 92.4 fl (80.0-96.0); PLATELET COUNT, AUTOMATED 290 10^3/uL (150-450); RED BLOOD COUNT 4.22 10^6/uL (4.30-6.10); WHITE BLOOD COUNT 8.3 10^3/uL (4.0-10.0)
[2020-06-13 07:05] LABS: ALBUMIN 3.3 GM/DL (3.2-5.2); ALT/SGPT 173 U/L (12-78); BILIRUBIN,TOTAL 0.7 MG/DL (0.2-1.0); BLOOD UREA NITROGEN 16 MG/DL (7-18); C REACTIVE PROTEIN QUANTITATIV 0.44 MG/DL (0.00-0.30); CALCIUM LEVEL 8.3 MG/DL (8.5-10.1); CARBON DIOXIDE LEVEL 27 MEQ/L (21-32); CHLORIDE LEVEL 109 MEQ/L (98-107); CREATININE FOR GFR 0.57 MG/DL (0.70-1.30); FERRITIN 143 NG/ML (26-388); GLOMERULAR FILTRATION RATE > 60.0 (>60); GLUCOSE, FASTING 109 MG/DL (70-100); POTASSIUM SERUM 3.8 MEQ/L (3.5-5.1); SODIUM LEVEL 142 MEQ/L (136-145); TOTAL PROTEIN 6.5 GM/DL (6.4-8.2)
--- NOTE | 2020-06-13 07:47 | IPNPDOC ---
Text Note Date of Service The patient was seen on 06/13/20. NOTE Subjective: Patient seen and examined at bedside. Awake and alert. Saturating 95% on RA. CXR much improved from the . BP better controlled to the 150s with addition of lisinopril yesterday and hydralazine. Objective: Constitutional: Doing well overnight. Obese. Awake and alert. No apparent distress HEENT: PEERLA. EOMI Neck: Supple Cardivascular: HS 1+ 2 Present. No murmurs, rubs or gallops appreciated Pulmonary: Clear to auscultation bilaterally. No wheezing/ronchi/rales Abdomen: Soft, nondistended. Non-tender to palpation Extremities: No swelling noted. Resting tremor noted. Assessment/Plan 30 yo M hx of HTN and heroin abuse on methadone presenting due to respiratory failure. Diagnosed with COVID on 06/08 requiring intubation. Extubation on 06/11. Currently saturating well on room air, awaiting rehab placement vs home with services. #Respiratory failure likely 2/2 COVID (resolved) -As per note on 06/08, patient presented to [facility] in [place] with actinomyces pneumonia and drug overdose. D/Jony in April. Returned to ED on 06/08 where he was intubated in ED. -CXR on 06/12 much improved from 06/08 -S/P Pip yehuda (06/08 - 06/12) -ABG on 06/12 --> 7.46/38/90/27. Improved from 06/08 --> 3.37/51/39/28.5 -D-Dimer uptrending. CRP downtrending. Trend -Patient extubated 06/11 -Hospital Regiment: Remdesivir (06/09 - 06/14), Decadron 6 mg BID (06/08 - ). Protonix 40 mg daily for GI PPX. Albuterol 2.5 q4h PRN -Currently saturating well on RA. #Hypertensive urgency (resolved) -Normotensive on admission, increasing to SBP > 180s on 06/12. Likely 2/2 Propofol withdrawal (last administration 06/08) -Norvasc 10 begun 06/10. Lisinopril 5 begun 06/12. Hydralazine PRN IV in place f or BP > 180 -May continue with home medications: clonidine 0.3 mg BID + Methadone 20 mg daily #Uptrending LFT's -Mildly elevated -Likely 2/2 remdesivir vs COVID (D-Dimer also trending up) -Trend #Hyperammonemia -Given raised LFTs and resting tremor, this test was ordered -levels 36 on 06/13 -Lactulose 30 BID ordered. Ensure patient has BM before discharge -Trend ammonia levels #Dark Brown Urine -As per patient, urine has been dark brown since [facility]. However, [facility] documentation reveals this was an acute issue beginning on 06/12 -UA ordered. CK ordered. IV fluids ordered -Rule out rhabdomyolysis vs ATN vs other #Resting tremor (bilateral hands) -S/P Duonebs. D/Jony albuterol 06/13. Resting tremor resolved #Drug abuse -on Methadone 20 daily and clonidine 0.3 mg BID as per rec meds #Obesity -Complicated care. BMI 46.8 DVT PPX: Heparin 5K q8h Diet: advance to regular on 06/14 Disposition: Home with services vs rehab as per PT. Case discussed with Dr. Marlon Santizo MD Hospitalist Resident Lina ESPINOZA I+Mary VSLina I+Mary Laboratory Tests 06/13/20 06:02 Vital Signs Date Time Temp Pulse Resp B/P (MAP) Pulse Ox O2 Delivery O2 Flow Rate FiO2 06/13/20 04:02 98.2 79 20 149/69 (95) 97 Room Air 06/12/20 00:00 3.0 06/11/20 13:00 30 I&O- Last 24 Hours up to 6 AM 06/13/20 05:59 Intake Total 600 ml Output Total 2100 ml Balance -1500 ml MAYLIN SANTIZO M.D.,PGY-2 Jun 13, 2020 07:47
[2020-06-13] MEDS: METHADONE 10 MG TAB (S0109) PO SCH (09:42)
[2020-06-13] MEDS: PANTOPRAZOLE 40MG TAB (PROTONIX) PO SCH (09:43)
[2020-06-13] MEDS: amLODIPine 10 MG TAB PO SCH (09:43)
[2020-06-13] MEDS: lisinopriL 5 MG TAB PO SCH (09:44)
[2020-06-13] MEDS ORDERED: PANTOPRAZOLE 40MG VIAL (C9113 PER 1) XX SCH (12:00)
[2020-06-13] MEDS: dexameTHASONE 20MG/5ML VIAL (J1100 PER 1MG) IV SCH (12:23)
[2020-06-13] MEDS: SODIUM CHLORIDE 0.9% INJ 10 ML SYR IV SCH (12:23)
[2020-06-13 16:42] LABS: CPK CREATINE PHOSPHOKINASE 301 U/L (39-308)
[2020-06-13] MEDS: NS 1,000 ML IV SCH ×2 (17:22→22:59)
[2020-06-13 17:42] LABS: AMORPHOUS SEDIMENT SMALL (NEGATIVE); APPEARANCE, URINE CLEAR (CLEAR); BACTERIA, URINE AUTO NEGATIVE (NEGATIVE); BILIRUBIN, URINE AUTO NEGATIVE (NEGATIVE); BLOOD, URINE BLOOD NEGATIVE (NEGATIVE); COLOR, URINE YELLOW (YELLOW); GLUCOSE, URINE (UA) AUTO NEGATIVE (NEGATIVE); KETONE, URINE AUTO NEGATIVE (NEGATIVE); LEUKOCYTE ESTERASE, URINE AUTO NEGATIVE (NEGATIVE); MUCUS, URINE SMALL (NEGATIVE); NITRITE, URINE AUTO NEGATIVE (NEGATIVE); PROTEIN, URINE AUTO NEGATIVE (NEGATIVE); RBC, URINE AUTO 0 /HPF (0-3); SPECIFIC GRAVITY URINE AUTO 1.027 (1.002-1.035); SQUAMOUS EPITHELIAL CELL UR AU 0 /HPF (0-6); UROBILINOGEN, URINE AUTO 0.2 mg/dL (0.0-2.0); WBC, URINE AUTO 1 /HPF (0-3)
[2020-06-13 17:58] LABS: LDH LACTATE DEHYDROGENASE 313 U/L (87-241)
[2020-06-13] MEDS: cloNIDine 0.1 MG TAB PO SCH (22:59)
[2020-06-14] MEDS: HEPARIN SOD (PORCINE) 5000UNITS/ML 1ML VIAL/SYRINGE SQ SCH ×2 (00:53→09:58)
[2020-06-14 04:00] VITALS: BP 116/57
[2020-06-14 08:32] LABS: BASO % 0.3 % (0.0-1.0); EOS # 0.2 10^3/uL (0.0-0.5); EOS % 1.7 % (0.0-3.0); HEMATOCRIT 37.9 % (42.0-52.0); HEMOGLOBIN 12.1 g/dl (13.5-17.5); LYMPH # 4.2 10^3/uL (1.5-5.0); LYMPH % 40.1 % (24.0-44.0); MEAN CORPUSCULAR HEMOGLOBIN 29.6 pg (27.0-33.0); MEAN CORPUSCULAR HGB CONC 31.9 g/dl (32.0-36.5); MEAN CORPUSCULAR VOLUME 92.7 fl (80.0-96.0); MONO % 9.2 % (0.0-5.0); NEUTROPHILS # 4.8 10^3/uL (1.5-8.5); NEUTROPHILS % 46.7 % (36.0-66.0); PLATELET COUNT, AUTOMATED 261 10^3/uL (150-450); RED BLOOD COUNT 4.09 10^6/uL (4.30-6.10); WHITE BLOOD COUNT 10.4 10^3/uL (4.0-10.0)
[2020-06-14 08:52] LABS: D-DIMER QUANT 2383.21 ng/ml (<500)
[2020-06-14 08:58] LABS: ALBUMIN 3.1 GM/DL (3.2-5.2); ALT/SGPT 170 U/L (12-78); BILIRUBIN,DIRECT 0.3 MG/DL (0.0-0.2); BILIRUBIN,TOTAL 0.8 MG/DL (0.2-1.0); BLOOD UREA NITROGEN 19 MG/DL (7-18); CALCIUM LEVEL 8.4 MG/DL (8.5-10.1); CARBON DIOXIDE LEVEL 25 MEQ/L (21-32); CHLORIDE LEVEL 110 MEQ/L (98-107); CPK CREATINE PHOSPHOKINASE 168 U/L (39-308); GLOMERULAR FILTRATION RATE > 60.0 (>60); GLUCOSE, FASTING 85 MG/DL (70-100); POTASSIUM SERUM 3.4 MEQ/L (3.5-5.1); SODIUM LEVEL 143 MEQ/L (136-145); TOTAL PROTEIN 6.1 GM/DL (6.4-8.2)
--- NOTE | 2020-06-14 09:24 | IPNPDOC ---
Text Note Date of Service The patient was seen on 06/14/20. VS,Lina, I+O VS, Lornae, I+O Laboratory Tests 06/14/20 08:00 Vital Signs Date Time Temp Pulse Resp B/P (MAP) Pulse Ox O2 Delivery O2 Flow Rate FiO2 06/14/20 04:00 97.1 57 20 116/57 (76) 93 Room Air 06/12/20 00:00 3.0 06/11/20 13:00 30 I&O- Last 24 Hours up to 6 AM 06/14/20 06:00 Intake Total 2500 ml Output Total 600 ml Balance 1900 ml MAYLIN SEWELL M.D.,PGY-2 Jun 14, 2020 09:24
[2020-06-14] MEDS: METHADONE 10 MG TAB (S0109) PO SCH (09:56)
[2020-06-14] MEDS: PANTOPRAZOLE 40MG TAB (PROTONIX) PO SCH (09:56)
[2020-06-14 09:57] VITALS: BP 132/78
[2020-06-14] MEDS: amLODIPine 10 MG TAB PO SCH (09:57)
[2020-06-14] MEDS: lisinopriL 5 MG TAB PO SCH (09:57)
[2020-06-14] MEDS: cloNIDine 0.1 MG TAB PO SCH (09:58)
[2020-06-14] MEDS: dexameTHASONE 20MG/5ML VIAL (J1100 PER 1MG) IV SCH (09:58)
[2020-06-14] MEDS ORDERED: POTASSIUM CHLORIDE 10 MEQ SR TABLET PO ONE (10:00)
[2020-06-14] MEDS: NS 1,000 ML IV SCH (10:45)
[2020-06-14] MEDS ORDERED: AMLO1TAB25 PO (11:52)
[2020-06-14] MEDS ORDERED: LISI-542 PO (11:52)
--- NOTE | 2020-06-14 12:13 | DS.PDOC ---
Discharge Summary General Date of Admission Jun 08, 2020 at 09:34 Date of Discharge 06/14/2020 Discharge Summary PROCEDURES PERFORMED DURING STAY: Intubation ADMITTING DIAGNOSES: 1. Respiratory failure requiring intubation 2. Hypertension DISCHARGE DIAGNOSES: 1. Respiratory failure likely 2/2 COVID 2. Renal sloughing likely 2/2 COVID 3. Resolved hypertensive urgency 4. Resolved Hyperammonemia COMPLICATIONS/CHIEF COMPLAINT: Acute Respiratory Failure W/ Hypoxia. HISTORY OF PRESENT ILLNESS: 30 yo M hx of drug abuse on methadone, obesity, recent intubation for 8 days in [facility] (04/30 - 05/27) in [place] for drug overdose and incidental finding of actinomyces pneumonia presents to [facility] for respiratory distress. Intubated in ED and discovered to have COVID pneumonia. HOSPITAL COURSE: 30 yo M hx of HTN and heroin abuse on methadone presenting due to respiratory failure. Diagnosed with COVID on 06/08 requiring intubation. Extubation on 06/11 and patient currently saturating > 95% on RA and speaking in full sentences. S/P 5 days remdesivir and decadron therapy. PT evaluated patient recommending home with services vs rehab placement. However patient refused treatment and instead wishes to return home with sister to [place]. Patient has capacity to make decisions and is AO x 3. On the day before discharge, patients urine noted to be dark brown although he is denying any dysuria. Nephrology curbsided, and unconcerned given labs and UA findings. Maintenance fluids given and PO hydration encouraged Furthermore, throughout hospital stay, patient was noted to have a resting tremor. His albuterol was discontinued with resolution of the tremor. In addition, his ammonia levels were measured which resulted in a slightly elevated number, and lactulose was given. Recommending follow up in 2 weeks with patient's PCP and financial aid officer after COVID resolved. We have also recommended him to get an outpatient ECHO to evaluate for heart failure given his elevated BNP in the absence of AMINA. Patient is aware of these issues and is in agreement with plan. DISCHARGE MEDICATIONS: Please see below. ALLERGIES: Please see below. Constitutional: Doing well overnight. Obese. Awake and alert. No apparent distress HEENT: PEERLA. EOMI Neck: Supple Cardivascular: HS 1+ 2 Present. No murmurs, rubs or gallops appreciated Pulmonary: Clear to auscultation bilaterally. No wheezing/ronchi/rales Abdomen: Soft, nondistended. Non-tender to palpation Extremities: No swelling noted. Resting tremor noted. LABORATORY DATA: Please see below. IMAGIN/19 CXR showing right upper lobe collapse with multifocal, bilateral infiltrates. CXR on 06/10 showing improvement. PROGNOSIS: good ACTIVITY: as tolerated DIET: regular DISCHARGE PLAN: home as patient refused rehab services. Patient wishes to return to [facility] with his sister. Patient to follow with PCP and [facility] as soon as possible after 10 day isolation period (ends jun 18) DISPOSITION: Home with sister to [place] DISCHARGE INSTRUCTIONS: 1. Please follow up with your primary care provider immediately after you have self-isolated for 10 days after COVID diagnosis (Jun 08). This means that you are off isolation measures on Jun 18. 2. Please continue to have good oral hydration. Drink at least 2-3 L of water / day You will also need to make an appointment with your financial aid officer (kidney doctor) after 2 weeks from discharge to follow up on your dark urine Please take your medications exactly as prescribed Please return to the ED if your symptoms fail to improve or worsen ITEMS TO FOLLOWUP ON ON OUTPATIENT: 1. resolution of COVID 2. Resolution of dark urine 3. Blood pressure management 4. Resolution of LFTs 5. Consider outpatient ECHO given BNP in the 800s DISCHARGE CONDITION: stable TIME SPENT ON DISCHARGE: Greater than 30 minutes. Vital Signs/I&Os Vital Signs Date Time Temp Pulse Resp B/P (MAP) Pulse Ox O2 Delivery O2 Flow Rate FiO2 06/14/20 09:57 132/78 06/14/20 04:00 97.1 57 20 93 Room Air 06/12/20 00:00 3.0 06/11/20 13:00 30 I&O- Last 24 Hours up to 6 AM 06/14/20 06:00 Intake Total 2500 ml Output Total 600 ml Balance 1900 ml Laboratory Data Labs 24H Laboratory Tests 2 06/13/20 14:28: Ammonia 36H 06/13/20 17:28: Urine Color YELLOW, Urine Appearance CLEAR, Urine pH 6.0, Urine Specific [place] 1.027, Urine Protein NEGATIVE, Urine Glucose (Auto)(UA) NEGATIVE, Urine Ketones (Auto) NEGATIVE, Urine Blood NEGATIVE, Urine Nitrite NEGATIVE, Urine Bilirubin NEGATIVE, Urine Urobilinogen 0.2, Urine Leukocyte Esterase (Auto) NEGATIVE, Urine WBC (Auto) 1, Urine RBC (Auto) 0, Urine Hyaline Casts (Auto) 0, Urine Bacteria (Auto) NEGATIVE, Urine Squamous Epithelial Cells 0, Urine Amorphous Sediment (Auto) SMALLH, Urine Mucus (Auto) SMALL, Urine Sperm (Auto) 06/14/20 08:00: Ammonia 28, Immature Granulocyte % (Auto) 2.0, Neutrophils (%) (Auto) 46.7, Lymphocytes (%) (Auto) 40.1, Monocytes (%) (Auto) 9.2H, Eosinophils (%) (Auto) 1.7, Basophils (%) (Auto) 0.3, Neutrophils # (Auto) 4.8, Lymphocytes # (Auto) 4.2, Monocytes # (Auto) 1.0H, Eosinophils # (Auto) 0.2, Basophils # (Auto) 0.0, Nucleated Red Blood Cells % (auto) 0.0, Fibrinogen 243, D-Dimer, Quantitative 2383.21H, Anion Gap 8, Glomerular Filtration Rate > 60.0, Calcium Level 8.4L, Total Bilirubin 0.8, Direct Bilirubin 0.3H, Aspartate Amino Transf (AST/SGOT) 51H, Alanine Aminotransferase (ALT/SGPT) 170H, Alkaline Phosphatase 59, Total Creatine Kinase 168, Total Protein 6.1L, Albumin 3.1L, Albumin/Globulin Ratio 1.0 CBC/BMP Laboratory Tests 06/14/20 08:00 Microbiology Microbiology 06/08/20 Blood Culture - Final, Complete NO GROWTH AFTER 5 DAYS 06/08/20 Blood Culture - Final, Complete NO GROWTH AFTER 5 DAYS 06/08/20 Respiratory Virus Panel (PCR) ([facility]) - Final, Complete SARS-CoV-2 (COVID 19) Discharge Medications Scheduled Amlodipine Besylate (Amlodipine Besylate) 10 Mg Tablet, 10 MG PO DAILY Clonidine HCl (Clonidine HCl) 0.3 Mg Tablet, 0.3 MG PO BID, (Reported) Lisinopril (Lisinopril) 5 Mg Tablet, 5 MG PO DAILY Methadone HCl (Methadone HCl) 10 Mg/5 Ml Solution, 20 MG PO DAILY, (Reported) VERIFIED WITH CREDO Allergies Coded Allergies: No Known Allergies (Unverified , 06/19/17) MAYLIN SEWELL M.D.,PGY-2 Jun 14, 2020 12:13
[2020-06-15] MEDS ORDERED: LACTULOSE 20 GM/30 ML SYRUP UD PO SCH (21:00)
== END 2020-06-14 14:00 | disposition home or self-care (01) | DRG 137 ==
LOC: M ED 06:41 → M ED INP 09:34 → M ICU 10:40 → M 4MAIN 06-12 20:35
PROVIDERS: ADMIT Internal Medicine Pulmonary Disease; ATTEND Internal Medicine
PROC: XW033E5 Introduction of Remdesivir Anti-infective into Peripheral Vein, Percutaneous Approach, New Technology Group 5 (ICD-10-PCS; principal; 2020-06-08)
PROC: 3E0333Z Introduction of Anti-inflammatory into Peripheral Vein, Percutaneous Approach (ICD-10-PCS; 2020-06-08)
PROC: 0BH17EZ Insertion of Endotracheal Airway into Trachea, Via Natural or Artificial Opening (ICD-10-PCS; 2020-06-08)
PROC: 5A1945Z Respiratory Ventilation, 24-96 Consecutive Hours (ICD-10-PCS; 2020-06-08)
DX: U07.1 COVID-19 (principal); J96.01 Acute respiratory failure with hypoxia; E72.20 Disorder of urea cycle metabolism, unspecified; J12.89 Other viral pneumonia; E66.01 Morbid (severe) obesity due to excess calories; Z68.42 Body mass index [BMI] 45.0-49.9, adult; J39.8 Other specified diseases of upper respiratory tract; F17.210 Nicotine dependence, cigarettes, uncomplicated; I16.0 Hypertensive urgency; I10 Essential (primary) hypertension; Z79.899 Other long term (current) drug therapy

== ENCOUNTER 2020-07-04 10:47 | Inpatient (IN) | payer OTHER ==
[~2020-07-04] VITALS: Ht 175.3 cm; Wt 140.5 kg
[~2020-07-04 10:47] MED LIST changes: +AMLO1TAB25 PO; +LISI-542 PO; +METH10SO PO
--- OUTSIDE RECORDS SUMMARY | 2020-07-04 10:59 | CCD | Continuity of Care Document ---
Author Author [facility] Organization Unknown Address Unknown Phone Unavailable Care Team Providers Care Melt House Centrifugal Operator Name Role Phone Fabiana Leyva Unavailable Unavailable Unavailable [facility] Unavailable Unavailable Unavailable Tiana Ramirez Unavailable MontanoLaurita Unavailable JoselineViktoriya Unavailable Ayush Coronado Unavailable Problems Name Dates Details Pneumonia, unspecif ied organism (J18.9) 26-May-2020 Status: Active Medications Name Dates Details Allergies and Adverse Reactions Not Known Results Date Description Value Details No Known Results Plan of Care Name Dates Details Instructions Diet: Ins truction Type: Nutrition education Payers * [facility] * [facility]
--- OUTSIDE RECORDS SUMMARY | 2020-07-04 10:59 | CCD ---
Author Author [facility] Organization [facility] Address Unknown Phone Unavailable Care Team Providers Care Traffic Clerk Name Role Phone Aliza Ruiz Unavailable PROBLEMS Type Condition ICD9-CM Code [id number] Code Onset Dates Condition S tatus SNOMED Code Notes Problem Asthma, unspecified asthma s everity, unspecified whether complicated, unspecified whether persistent J45.909 Active 26149 7001 Problem Hypertension, unspecified type I10 Active 3 0935183 Problem Cigarette nicotine dependence without complication F17.210 Active 73260997 ALLERGIES No Known Allergies ENCOUNTERS from 1991 to 2020-06-19 Encounter Location Date Provider Diagnosis [facility] [address] [place] [address] May, Aliza Ruiz Asthma, unspecified asthma severity, uns pecified whether complicated, unspecified whether persistent J45.909 ; Elevated brain natriuretic peptide (BNP) level R79.89 ; Elevated LFTs R79.89 and Hypertension, unspecified type I10 IMMUNIZATIONS No Information SOCIAL HISTORY Tobacco Use: Social History Observation Description Date Details (start date - stop date) Current Smoker Sex Assigned At : Social History Observation Description Sex Assigned At Unknown Education: Question Answer Notes Level of Education: GED Audit Question Answer Notes Interpretation: Alcohol Education Total Score: 0 Language: Question Answer Notes Languages spoken: Estonian Buddhism: Question Answer Notes Buddhism No episcopal beliefs that would impact health care. Domestic Violence: Question Answer Notes Status: Single Sexual Hx: Question Answer Notes Had sex in the last 12 months (vaginal, oral, or anal)? Yes Have you ever had an STD? No with Women only Use protection? Yes How often? Most of the time Alcohol Screening: Question Answer Notes Did you have a drink containing alcohol in the past year? No Points 0 Interpretation Negative BMI Care Goal Follow-Up Question Answer Notes Above Normal BMI Follow-Up Giving encouragement to exercise Tobacco Use: Question Answer Notes Are you a: current smoker Patient counseled on the dangers of tobacco use and urged to quit: 06/05/2020 How many cigarettes a day do you smoke? 11-20 REASON FOR REFERRAL No Information VITAL SIGNS Weight 324 lbs May, Height 69 in May, BMI 47.84 kg/m2 May, Heart Rate 77 /min May, Respiratory Rate 16 /min May, Temperature 97.8 degrees Fahrenheit May, Oximetry 98 May, Blood pressure systolic 138 mm Hg May, Blood pressure diastolic 67 mm Hg May, MEDICATIONS Medication SIG (Take, Route, Frequency, Duration) Notes Start Da te End Date Status Albuterol Sulfate HFA 108 (90 Base) MCG/ACT 1 puff as needed Inhalation every 4 hrs for 30 days May, Active Methadone HCl 10 MG/5ML 20 mL Orally Once a day May, Active Clonidine HCl _ 1 tablet Orally BID Active AmLODIPine Besylate 10 MG 1 tablet Orally Once a day for 30 day(s) Active PredniSONE 20 MG 2 tablets Orally Once a day for 5 day(s) May, Not-Taking Nicoderm CQ 14 MG/24HR 1 patch to skin Transdermal Once a day fo r 30 day(s) May, Active Albuterol Sulfate (2.5 MG/3ML) 0.083% 3 ml as needed I nhalation every 8 hrs for 30 days May, Active Lisinopril 5 MG 1 tablet Orally Once a day for 30 day(s) Active PROCEDURES No Information RESULTS No Results REASON FOR VISIT 2 WEEK F/U MEDICAL (GENERAL) HISTORY Type Description Date Surgical History No Surgical history information Hospitalization History [facility] Hospitalization History COVID-19 05/2020 Goals Section No Information Health Concerns No Information MEDICAL EQUIPMENT No Information MENTAL STATUS No Information FUNCTIONAL STATUS No Information ASSESSMENTS Encounter Date Diagnosis Assessment Notes Treatment Notes Treatm ent Clinical Notes May, Asthma, unspecified asthma s everity, unspecified whether complicated, unspecified whether persistent (ICD-10 - J45.909) Refill of albuterol inhaler provided. Also sent script to [facility] for nebulizer machine and tubing. Pt was advised not to use both inhaler and nebulizer at the same time since it is the same medication. Advised to use one or the other every 4 hours PRN SOB or wheezing. Pt expressed understanding and agreed with plan. May, Elevated brain natriuretic peptide (BNP) level ( ICD-10 - R79.89) BNP noted to be in the 800s during recent hospitalization. Will assess cardiac function with echocardiogram. Currently pt denies any LUEVANO, LE edema, or orthopnea. May, Elevated LFTs (ICD-10 - R79.89) Elevated LFTs on CMP during recent hospitalization. Will re-check CMP at this time and check for hepatitis B, and C infection as well as HIV. Pt denies any RUQ/abdominal pain. Pt expressed understanding and agreed with plan. May, Hypertension, unspecified type (ICD-10 - I10) Patient was advised to continue current medication regimen. He was also counseled on maintaining a low-salt diet, increasing vegetable intake, and increasing exercise to help lose weight and lower blood pressure. BP currently well-controlled at this time, no change to medication regimen was made. Advised follow-up in one month for continued monitoring of blood pressure. PLAN OF TREATMENT Medication Medication Name Sig Start Date Stop Date Albuterol Sulfate HFA 108 (90 Base) MCG/ACT 1 puff as needed Inhalation every 4 hrs for 30 days May, Treatment Notes Assessment Notes Clinical Notes Asthma, unspecified asthma severity, uns pecified whether complicated, unspecified whether persistent Refill of albuterol inh aler provided. Also sent script to [facility] for nebulizer machine and tubing. Pt was advised not to use both inhaler and nebulizer at the same time since it is the same medication. Advised to use one or the other every 4 hours PRN SOB or wheezing. Pt expressed understanding and agreed with plan. Elevated brain natriuretic peptide (BNP) level BNP noted to be in the 800s during recent hospitalization. Will assess cardiac function with echocardiogram. Currently pt denies any LUEVANO, LE edema, or orthopnea. Elevated LFTs Elevated LFTs on CMP during recent hospitalization. Will re- check CMP at this time and check for hepatitis B, and C infection as well as HIV. Pt denies any RUQ/abdominal pain. Pt expressed understanding and agreed with plan. Hypertension, unspecified type Patient w as advised to continue current medication regimen. He was also counseled on maintaining a low-salt diet, increasing vegetable intake, and increasing exercise to help lose weight and lower blood pressure. BP currently well-controlled at this time, no change to medication regimen was made. Advised follow-up in one month for continued monitoring of blood pressure. Treatment Notes Test Name Order Date Echocardiogram 2020-06-19 HIV 1&2 ANTIBODY SCREEN 2020-06-19 HEPATITIS C ANTIBODY INDEX 2020-06-19 Comprehensive Metabolic Profile (CMP) 2020-06-19 HEPATITIS B SURFACE ANTIGEN 2020-06-19 Next Appt Details 4 Weeks Reason:hypertension f/u Follow Up:4 Weekshypertension f/u Insurance Providers Payer Name Payer Address Payer Phone Insured Name Patient Relati onship to Insured Coverage Start Date Coverage End Date [facility] CLAIMS DEPT [address] [facility] [phone] LILO MARTINEZ
--- OUTSIDE RECORDS SUMMARY | 2020-07-04 10:59 | CCD ---
Author Author [facility] Organization [facility] Address Unknown Phone Unavailable Care Team Providers Care Metal Fabricator Apprentice Name Role Phone Aliza Ruiz Unavailable PROBLEMS Type Condition ICD9-CM Code [id number] Code Onset Dates Condition S tatus SNOMED Code Notes Problem Asthma, unspecified asthma s everity, unspecified whether complicated, unspecified whether persistent J45.909 Active 88362 7001 Problem Hypertension, unspecified type I10 Active 3 3149099 Problem Cigarette nicotine dependence without complication F17.210 Active 63593404 ALLERGIES No Known Allergies ENCOUNTERS from 1991 to 2020-06-18 Encounter Location Date Provider Diagnosis [facility] [address] [place] [address] May, Aliza Ruiz Asthma, unspecified asthma severity, uns pecified whether complicated, unspecified whether persistent J45.909 IMMUNIZATIONS No Information SOCIAL HISTORY Tobacco Use: Social History Observation Description Date Details (start date - stop date) Current Smoker Sex Assigned At : Social History Observation Description Sex Assigned At Unknown Education: Question Answer Notes Level of Education: GED Audit Question Answer Notes Interpretation: Alcohol Education Total Score: 0 Language: Question Answer Notes Languages spoken: Cameroonian Baptist: Question Answer Notes Baptist No religion beliefs that would impact health care. Domestic [...] REASON FOR REFERRAL No Information VITAL SIGNS No information MEDICATIONS Medication SIG (Take, Route, Frequency, Duration) [...] Information RESULTS No Results REASON FOR VISIT Nebulizer MEDICAL (GENERAL) HISTORY Type Description Date Surgical History No Surgical history information Hospitalization History [facility] Hospitalization History COVID-19 05/2020 Goals Section No Information Health Concerns No Information MEDICAL EQUIPMENT No Information MENTAL STATUS No Information FUNCTIONAL STATUS No Information ASSESSMENTS Encounter Date Diagnosis Assessment Notes Treatment Notes Treatm ent Clinical Notes May, Asthma, unspecified asthma s everity, unspecified whether complicated, unspecified whether persistent (ICD-10 - J45.909) PLAN OF TREATMENT Medication Medication Name Sig Start Date Stop Date Albuterol Sulfate HFA 108 (90 Base) MCG/ACT 1 puff as needed Inhalation every 4 hrs for 30 days May, Insurance Providers Payer Name Payer Address Payer Phone Insured Name Patient Relati onship to Insured Coverage Start Date Coverage End Date [facility] CLAIMS DEPT [address] [facility] [phone] LILO MARTINEZ
--- OUTSIDE RECORDS SUMMARY | 2020-07-04 10:59 | CCD ---
Author Author [facility] Organization [facility] Address Unknown Phone Unavailable Care Team Providers Care Concrete Hopper Operator Name Role Phone Aliza Ruiz Unavailable PROBLEMS Type Condition ICD9-CM Code [id number] Code Onset Dates Condition S tatus SNOMED Code Notes Problem Asthma, unspecified asthma s everity, unspecified whether complicated, unspecified whether persistent J45.909 Active 78516 7001 Problem Hypertension, unspecified type I10 Active 3 5922585 Problem Cigarette nicotine dependence without complication F17.210 Active 41288383 ALLERGIES No Known Allergies ENCOUNTERS from 1991 to 2020-06-26 Encounter Location Date Provider Diagnosis [facility] [address] [place] [address] Jun, Aliza Ruiz IMMUNIZATIONS No Information SOCIAL HISTORY Tobacco Use: Social History Observation Description Date Details (start date - stop date) Current Smoker Sex Assigned At : Social History Observation Description Sex Assigned At Unknown Education: Question Answer Notes Level of Education: GED Audit Question Answer Notes Total Score: 0 Interpretation: Alcohol Education Language: Question Answer Notes Languages spoken: Lebanese Jehovah'S Witness: Question Answer Notes Jehovah'S Witness No yazidism beliefs that would impact health care. Domestic [...] Information RESULTS No Results REASON FOR VISIT report /med questions MEDICAL (GENERAL) HISTORY Type Description Date Surgical History No Surgical history information Hospitalization History [facility] Hospitalization History COVID-19 05/2020 Goals Section No Information Health Concerns No Information MEDICAL EQUIPMENT No Information MENTAL STATUS No Information FUNCTIONAL STATUS No Information ASSESSMENTS No Information PLAN OF TREATMENT Medication Medication Name Sig Start Date Stop Date Albuterol Sulfate HFA 108 (90 Base) MCG/ACT 1 puff as needed Inhalation every 4 hrs for 30 days May, Insurance Providers Payer Name Payer Address Payer Phone Insured Name Patient Relati onship to Insured Coverage Start Date Coverage End Date [facility] CLAIMS DEPT [address] [facility] [phone] LILO MARTINEZ
--- OUTSIDE RECORDS SUMMARY | 2020-07-04 10:59 | CCD | Continuity of Care Document ---
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) 01-May-2020 Status: Active Body mass index [BM I]40.0-44.9, adult (Z68.41) 01-May-2020 Status: Active History of falling (Z91.81) 01-May-2020 Status: Active Sedative, hypnotic or anxiolytic abuse, 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) 01-May-2020 Status: Active Cocaine abuse, unco mplicated (F14.10) 01-May-2020 Status: Active Cannabis abuse, unc omplicated (F12.10) 01-May-2020 Status: Active Opioid abuse, uncom plicated (F11.10) 01-May-2020 Status: Active Morbid (severe) obe sity due to excess calories (E66.01) 01-May-2020 Status: Active Sleep apnea, unspec ified (G47.30) 01-May-2020 Status: Active Poisoning by heroin , accidental (unintentional), sequela (T40.1X1S) 01-May-2020 Status: Active Acute respiratory f ailure with hypoxia (J96.01) 01-May-2020 Status: Active Rhabdomyolysis (M62.82) 01-May-2020 Status: Active Other specified kitty terial agents as the cause of diseases classified elsewhere (B96.89) 01-May-2020 Status: Active Hemophilus influenz ae [H. influenzae] as the cause of diseases classified elsewhere (B96.3) 01-May-2020 Status: Active Methicillin suscept ible Staphylococcus aureus infection as the cause of diseases classified elsewhere (B95.61) 01-May-2020 Status: Active Medications Name Dates Details Methadone HCl 10 MG 2 tablets. Administered by CREDO daily Fabiana Leyva MD Active AmLODIPine Besylate 5 MG Fabiana Leyva MD* Start : 30-May-2020 Active Metoprolol Tartrate 25 MG Fabiana Leyva MD* Start : 30-May-2020 Active CloNIDine HCl 0.3 MG Fabiana Leyva MD* Start : 30-May-2020 Active Allergies and Adverse Reactions Name Dates Details No Known Drug Allergies (Allergy) Onset : 30-May-2020 Status: Active Results Date Description Value Details No Known Results Plan of Care Name Dates Details Instructions Diet:Regular Diet Ins truction Type: Nutrition education Payers * [facility] * [facility]
--- OUTSIDE RECORDS SUMMARY | 2020-07-04 11:00 | CCD ---
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 Name Role Phone JUSTINSusan PA Unavailable Unavailable JUSTIN, L DESHAUN PA Unavailable Unavailable JUSTIN, L DESHAUN PA Unavailable Unavailable JUSTIN, L DESHAUN PA Unavailable Unavailable JUSTIN, L DESHAUN PA Unavailable Unavailable JUSTIN, L DESHAUN PA Unavailable Unavailable JUSTIN, L DESHAUN PA Unavailable Unavailable JUSTIN, L DESHAUN PA Unavailable Unavailable JUSTIN, L DESHAUN PA Unavailable Unavailable JUSTIN, L DESHAUN PA Unavailable Unavailable JUSTIN, L DESHAUN PA Unavailable Unavailable JUSTIN, L DESHAUN PA Unavailable Unavailable JUSTIN, L DESHAUN PA Unavailable Unavailable JUSTIN, L DESHAUN PA Unavailable Unavailable JUSTIN, L DESHAUN PA Unavailable Unavailable JUSTIN, L DESHAUN PA Unavailable Unavailable JUSTIN, L DESHAUN PA Unavailable Unavailable JUSTIN, L DESHAUN PA Unavailable Unavailable JUSTIN, L DESHAUN PA Unavailable Unavailable Re-disclosure Warning The records that you are about to access may contain information from federally-assisted alcohol or drug abuse programs. If such information is present, then the following federally mandated warning applies: This information has been disclosed to you from records protected by federal confidentiality rules (42 CFR part 2). The federal rules prohibit you from making any further disclosure of this information unless further disclosure is expressly permitted by the written consent of the person to whom it pertains or as otherwise permitted by 42 CFR part 2. A general authorization for the release of medical or other information is NOT sufficient for this purpose. The Federal rules restrict any use of the information to criminally investigate or prosecute any alcohol or drug abuse patient.The records that you are about to access may contain highly sensitive health information, the redisclosure of which is protected by Article 27-F of the [facility] Public Health law. If you continue you may have access to information: Regarding HIV / AIDS; Provided by facilities licensed or operated by the [facility] Office of Mental Health; or Provided by the [facility] Office for People With Developmental Disabilities. If such information is present, then the following [facility] mandated warning applies: This information has been disclosed to you from confidential records which are protected by state law. State law prohibits you from making any further disclosure of this information without the specific written consent of the person to whom it pertains, or as otherwise permitted by law. Any unauthorized further disclosure in violation of state law may result in a fine or senior living sentence or both. A general authorization for the release of medical or other information is NOT sufficient authorization for further disc losure. Allergies and Adverse Reactions Type Description Substance Reaction Status Data Source(s ) No Known Drug Allergies No Known Drug Allergies No Known Drug Aller gies active [facility] ([facility] ) Encounters Encounter Providers Location Date Indications Data Source(s ) Unknown [address] [facility] [address] 06/25/2020 12:00:00 AM EST eCW1 ([facility]ly [facility]) [place] [address] [facility] [place] [address] 06/18/2020 12:00:00 AM EST eCW1 ([facility]) [place] [address] [facility] [place] [address] 06/18/2020 12:00:00 AM EST eCW1 ([facility]) [place] [address] [facility] [place] [address] 06/05/2020 12:00:00 AM EST eCW1 ([facility]) 05/30/2020 12:00:00 AM EST - 020 10:27:04 AM EST NETSMART ([facility]) Emergency Attender: DESHAUN RIOJAS 03/22 02:27:00 PM EDT - 04/12/2020 02:57:00 PM EDT [facility] Patient discharged. Medications Medication Brand Name Start Date Product Form Dose Route Admi nistrative Instructions Pharmacy Instructions Status Indications Reaction Description Data Source(s) 5 mg 06/15/2020 12:00:00 AM EST tablet 30 TAKE ONE TABLET BY MOUTH EVERY DAY TAKE ONE TABLET BY MOUTH EVERY DAY SOLD: 06/17/2020 [facility] 10 mg 06/15/2020 12:00:00 AM EST tablet 30 TAKE ONE TABLET BY MOUTH EVERY DAY TAKE ONE TABLET BY MOUTH EVERY DAY SOLD: 06/17/2020 [facility] 24 HR Nicotine 0.583 MG/HR Transdermal P atch [Nicoderm C-Q] Nicoderm CQ 14 MG/24HR Nicoderm CQ 14 MG/24HR 06/06/2020 12:00:00 AM EST 1.0 {patch_to_skin} active Nicoderm CQ 14 MG/24 HR eCW1 ([facility]) 24 HR Nicotine 0.583 MG/HR Transdermal P atch [Nicoderm C-Q] Nicoderm CQ 14 MG/24HR Nicoderm CQ 14 MG/24HR 06/06/2020 12:00:00 AM EST 1.0 {patch_to_skin} active Nicoderm CQ 14 MG/24 HR eCW1 ([facility]) 24 HR Nicotine 0.583 MG/HR Transdermal P atch [Nicoderm C-Q] Nicoderm CQ 14 MG/24HR Nicoderm CQ 14 MG/24HR 06/06/2020 12:00:00 AM EST 1.0 {patch_to_skin} active Nicoderm CQ 14 MG/24 HR eCW1 ([facility]) 24 HR Nicotine 0.583 MG/HR Transdermal P atch [Nicoderm C-Q] Nicoderm CQ 14 MG/24HR Nicoderm CQ 14 MG/24HR 06/06/2020 12:00:00 AM EST 1.0 {patch_to_skin} active Nicoderm CQ 14 MG/24 HR eCW1 ([facility]) Prednisone 20 MG Oral Tablet PredniSONE 20 MG PredniSONE 20 MG 06/05/2020 12:00:00 AM EST 2.0 {tablets} suspended PredniSONE 20 MG eCW1 ([facility]) Albuterol 0.83 MG/ML Inhalant Solution Albuterol Sulfa te (2.5 MG/3ML) 0.083% Albuterol Sulfate (2.5 MG/3ML) 0.083% 06/05/2020 12:00:00 AM EST 3.0 {ml_as_needed} active Albuterol Sulfate (2.5 MG/3ML) 0.083% eCW1 ([facility]) Methadone Hydrochloride 2 MG/ML Oral Solution Methadon e HCl 10 MG/5ML Methadone HCl 10 MG/5ML 06/05/2020 12:00:00 AM EST 20.0 {ml} a ctive Methadone HCl 10 MG/5ML eCW1 ([facility]) Albuterol Sulfate HFA 108 (90 Base) MCG/ACT Albuterol Sulfate HFA 108 (90 Base) MCG/ACT 06/05/2020 12:00:00 AM EST 1.0 {puff_as_needed} active Albuterol Sulfate HFA 108 (90 Base) MCG/ACT eCW1 ([facility]) Prednisone 20 MG Oral Tablet PredniSONE 20 MG PredniSONE 20 MG 06/05/2020 12:00:00 AM EST 2.0 {tablets} suspended PredniSONE 20 MG eCW1 ([facility]) Albuterol 0.83 MG/ML Inhalant Solution Albuterol Sulfa te (2.5 MG/3ML) 0.083% Albuterol Sulfate (2.5 MG/3ML) 0.083% 06/05/2020 12:00:00 AM EST 3.0 {ml_as_needed} active Albuterol Sulfate (2.5 MG/3ML) 0.083% eCW1 ([facility]) Methadone Hydrochloride 2 MG/ML Oral Solution Methadon e HCl 10 MG/5ML Methadone HCl 10 MG/5ML 06/05/2020 12:00:00 AM EST 20.0 {ml} a ctive Methadone HCl 10 MG/5ML eCW1 ([facility]) Albuterol Sulfate HFA 108 (90 Base) MCG/ACT Albuterol Sulfate HFA 108 (90 Base) MCG/ACT 06/05/2020 12:00:00 AM EST 1.0 {puff_as_needed} active Albuterol Sulfate HFA 108 (90 Base) MCG/ACT eCW1 ([facility]) Prednisone 20 MG Oral Tablet PredniSONE 20 MG PredniSONE 20 MG 06/05/2020 12:00:00 AM EST 2.0 {tablets} suspended PredniSONE 20 MG eCW1 ([facility]) Albuterol Sulfate HFA 108 (90 Base) MCG/ACT Albuterol Sulfate HFA 108 (90 Base) MCG/ACT 06/05/2020 12:00:00 AM EST 1.0 {puff_as_needed} active Albuterol Sulfate HFA 108 (90 Base) MCG/ACT eCW1 ([facility]) Prednisone 20 MG Oral Tablet PredniSONE 20 MG PredniSONE 20 MG 06/05/2020 12:00:00 AM EST 2.0 {tablets} active P redniSONE 20 MG eCW1 ([facility]) Albuterol 0.83 MG/ML Inhalant Solution Albuterol Sulfa te (2.5 MG/3ML) 0.083% Albuterol Sulfate (2.5 MG/3ML) 0.083% 06/05/2020 12:00:00 AM EST 3.0 {ml_as_needed} active Albuterol Sulfate (2.5 MG/3ML) 0.083% eCW1 ([facility]) Albuterol Sulfate HFA 108 (90 Base) MCG/ACT Albuterol Sulfate HFA 108 (90 Base) MCG/ACT 06/05/2020 12:00:00 AM EST 1.0 {puff_as_needed} active Albuterol Sulfate HFA 108 (90 Base) MCG/ACT eCW1 ([facility]) Albuterol 0.83 MG/ML Inhalant Solution Albuterol Sulfa te (2.5 MG/3ML) 0.083% Albuterol Sulfate (2.5 MG/3ML) 0.083% 06/05/2020 12:00:00 AM EST 3.0 {ml_as_needed} active Albuterol Sulfate (2.5 MG/3ML) 0.083% eCW1 ([facility]) Methadone Hydrochloride 2 MG/ML Oral Solution Methadon e HCl 10 MG/5ML Methadone HCl 10 MG/5ML 06/05/2020 12:00:00 AM EST 20.0 {ml} a ctive Methadone HCl 10 MG/5ML eCW1 ([facility]) Methadone Hydrochloride 2 MG/ML Oral Solution Methadon e HCl 10 MG/5ML Methadone HCl 10 MG/5ML 06/05/2020 12:00:00 AM EST 20.0 {ml} a ctive Methadone HCl 10 MG/5ML eCW1 ([facility]) Methadone HCl 10 MG Methadone HCl 05/30/2020 12:00:00 AM EST completed NETSMART ([facility]) AmLODIPine Besylate 5 MG AmLODIPine Besylate 05/30/2020 12:00:00 AM EST completed NETSMART ([facility]) Metoprolol Tartrate 25 MG Metoprolol Tartrate 05/30/2020 12:00:[address] completed NETSMART ([facility]) CloNIDine HCl 0.3 MG CloNIDine HCl 05/30/2020 12:00:00 AM EST completed NETSMART ([facility]) Insurance Providers Payer name Policy type / Coverage type Policy ID Covered republican ID Covered republican's relationship to mckeon Policy Mckeon Plan Information [facility] [place] O [id number] S [id number] ALONSO [id number] SP [id number] 100 [facility] MEDICAID [id number] S [id number] SELF PAY [id number] S [id number] SELF PAY [id number] S [id number] [employer]GRESSIVE [employer] NO FAULT [id number] SP [id number] SELF PAY HEA S SELF PAY HEA S SELF PAY ONLY [id number] SP [id number] [employer] [id number] MO2 [id number] [employer] PPO O [id number] S [id number] SELF PAY UNAVAILABLE SP [employer] [id number] MO2 [id number] Problems, Conditions, and Diagnoses Code Display Name Description Problem Type Effective Dates Data Source(s) I10 [id number] Hypertension, unspecified type Problem 06/18 12:00:00 AM EST eCW1 ([facility]) F17.210 [id number] Cigarette nicotine dependence without com plication Problem 06/06/2020 12:00:00 AM EST eCW1 ([facility]) J45.909 [id number] Asthma, unspecified asthma severity, unspecified whether complicated, unspecified whether persistent Problem 06/05/2020 12:00 :00 AM EST eCW1 ([facility]) J18.9 Pneumonia, unspecified organism Pneumonia, unspecified organism Problem 05/26/2020 12:00:00 AM EST NETSMART ([facility] ) B95.61 Methicillin susceptible Stap hylococcus aureus infection as the cause of diseases classified elsewhere Methicillin susceptible Staphylococcus a ureus infection as the cause of diseases classified elsewhere Problem 05/01/2020 12:00:00 AM EST NETSMART ([facility] ) B96.3 Hemophilus influenzae [H. in fluenzae] as the cause of diseases classified elsewhere Hemophilus influenzae [H. influenzae] as the cause of diseases classified elsewhere Problem 05/01/2020 12:00:00 AM EST NETSMART ([facility]) B96.89 Other specified bacterial ag ents as the cause of diseases classified elsewhere Other specified bacterial agents as the cause of diseases classified elsewhere Problem 05/01/2020 12:00:00 AM EST NETSMART ([facility]) M62.82 Rhabdomyolysis Rhabdomyolysis Problem 05/01/2020 12:00: 00 AM EST NETSMART ([facility]) J96.01 Acute respiratory failure with hypoxia A cute respiratory failure with hypoxia Problem 05/01/2020 12:00:00 AM EST NETSMART ([facility]) T40.1X1S Poisoning by heroin, accidental (uninten tional), sequela Poisoning by heroin, accidental (unintentional), sequela Problem 05/01/2020 12:00 :00 AM EST NETSMART ([facility]) G47.30 Sleep apnea, unspecified Sleep apnea, unspecified Prob jatinder 05/01/2020 12:00:00 AM EST NETSMART ([facility] ) E66.01 Morbid (severe) obesity due to excess ca lories Morbid (severe) obesity due to excess calories Problem 05/01/2020 12:00:00 AM EST NETSMART ( [facility]) F11.10 Opioid abuse, uncomplicated Opioid abuse, uncomplicate d Problem 05/01/2020 12:00:00 AM EST NETSMART ([facility] ) F12.10 Cannabis abuse, uncomplicated Cannabis abuse, uncompli cated Problem 05/01/2020 12:00:00 AM EST NETSMART ([facility] ) F14.10 Cocaine abuse, uncomplicated Cocaine abuse, uncomplica jaylan Problem 05/01/2020 12:00:00 AM EST NETSMART ([facility] ) F13.10 Sedative, hypnotic or anxiolytic abuse, uncomplicated Sedative, hypnotic or anxiolytic abuse, uncomplicated Problem 05/01/2020 12:00:00 AM ES T NETSMART ([facility]) Z91.81 History of falling History of falling Problem 0 12:00:00 AM EST NETSMART ([facility]) Z68.41 Body mass index [BMI]40.0-44.9, adult [place] dy mass index [BMI]40.0-44.9, adult Problem 05/01/2020 12:00:00 AM EST NETSMART ([facility]) 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 O [employer] (CURRENT) DRUG THERAPY Diagnosis 04/12/2020 02:27:00 PM EDT [facility] F17.210 Nicotine dependence, cigarettes, uncompl icated NICOTINE DEPENDENCE, CIGARETTES, UNCOMPLICATED Diagnosis 04/12/2020 02:27:00 PM EDT [facility] F19.10 Other psychoactive substance abuse, unco mplicated OTHER PSYCHOACTIVE SUBSTANCE ABUSE, UNCOMPLICATED Diagnosis 04/12/2020 02:27:00 PM EDT [facility] K52.9 Noninfective gastroenteritis and colitis , unspecified NONINFECTIVE GASTROENTERITIS AND COLITIS, UNSPECIF Diagnosis 04/12/2020 02:27:00 PM EDT [facility] R10.84 Generalized abdominal pain GENERALIZED ABDOMINAL PAIN Diagnosis 04/12/2020 02:27:00 PM [facility] Results ID Date Data Source [id number] 06/08/2020 07:29:00 AM EST [facility] Name Value Range Interpretation Code Description Data Juany rce(s) Supporting Document(s) Respiratory pathogens identified [Type] in Nasopharynx by Probe and target amplification method [facility] This lab was ordered by [facility] a nd reported by [facility]. ID Date Data Source [id number] 04/14/2020 06:09:00 AM [facility] Patient: LILO MARTINEZ Observation Report - Physicians/Mid Levels . [facility].VisitID: [id number] [place] [address] [phone], MRegistration Date/Time: 04/12/2020 13:00 Weight:149.6 kg (S). Height/Length:69 inches (S). BMI:48.7 PAST HISTORYProblems:Substance Abuse. Additional Surgeries:Tonsillectomy. Medications:Methadose Oral unk, daily, last dose today. Allergies:No Known Drug Allergy. FAMILY HISTORYNegative. No significant family medical history. (Electronically signed by Jake Jay 04/12/2020 18:58) Name Value Range Interpretation Code Description Data Juany rce(s) Supporting Document(s) Procedure Social History Code Duration Value Status Description Data Source(s ) Smoking 06/18/2020 12:00:00 AM EST Current Smoker completed Curre nt Smoker eCW1 ([facility]) Smoking 06/18/2020 12:00:00 AM EST Current Smoker completed Curre nt Smoker eCW1 ([facility]) Smoking 06/18/2020 12:00:00 AM EST Current Smoker completed Curre nt Smoker eCW1 ([facility]) Smoking 06/05/2020 12:00:00 AM EST Current Smoker completed Curre nt Smoker eCW1 ([facility]) Vital Signs ID Date Data Source UNK Name Value Range Interpretation Code Description Data Source(s) Diastolic blood pressure 67 mm[Hg] 67 mm[Hg] eCW1 ([facility]) Systolic blood pressure 138 mm[Hg] 138 mm[Hg] e CW1 ([facility]) Body temperature 97.8 [degF] 97.8 [degF] eCW1 ( [facility]) Respiratory rate 16 /min 16 /min eCW1 ([facility]) Heart rate 77 /min 77 /min eCW1 ([facility]) Body mass index (BMI) [Ratio] 47.84 kg/m2 47.84 kg/m2 eCW1 ([facility]) Body height 69 [in_i] 69 [in_i] eCW1 ([facility]) Body weight 324 [lb_av] 324 [lb_av] eCW1 ([facility]) Diastolic blood pressure 59 mm[Hg] 59 mm[Hg] eCW1 ([facility]) Systolic blood pressure 111 mm[Hg] 111 mm[Hg] e CW1 ([facility]) Body temperature 96.9 [degF] 96.9 [degF] eCW1 ( [facility]) Respiratory rate 17 /min 17 /min eCW1 ([facility] hospital) Heart rate 81 /min 81 /min eCW1 ([facility]) Body mass index (BMI) [Ratio] 47.84 kg/m2 47.84 kg/m2 eCW1 ([facility]) Body height 69 [in_i] 69 [in_i] eCW1 ([facility]) Body weight 324 [lb_av] 324 [lb_av] eCW1 ([facility]) Patient Treatment Plan of Care Planned Activity Planned Date Details Description Data Source (s) 24 HR Nicotine 0.583 MG/HR Transdermal Patch [Nicoderm C-Q] 06/06/2020 12:00:00 AM EST eCW1 (Pending sale to [facility]) Albuterol Sulfate HFA 108 (90 Base) MCG/ACT 06/05/2020 12:00:00 AM EST eCW1 ([facility]) Albuterol Sulfate HFA 108 (90 Base) MCG/ACT 06/05/2020 12:00:00 AM EST eCW1 ([facility]) Albuterol Sulfate HFA 108 (90 Base) MCG/ACT 06/05/2020 12:00:00 AM EST eCW1 ([facility]) Prednisone 20 MG Oral Tablet 06/05/2020 12:00:00 AM EST eCW1 ([facility]) Albuterol Sulfate HFA 108 (90 Base) MCG/ACT 06/05/2020 12:00:00 AM EST eCW1 ([facility]) Albuterol 0.83 MG/ML Inhalant Solution 06/05/2020 12:00:00 AM EST eCW1 ([facility]) CloNIDine HCl 0.3 MG 05/30/2020 12:00:00 AM EST NETSMART ([facility]) Metoprolol Tartrate 25 MG 05/30/2020 12:00:00 AM EST [facility]SMART ([facility]) AmLODIPine Besylate 5 MG 05/30/2020 12:00:00 AM EST [facility]SMART ([facility]) Methadone HCl 10 MG 05/30/2020 12:00:00 AM EST NETSMART ([facility])
--- OUTSIDE RECORDS SUMMARY | 2020-07-04 12:55 | CCD ---
Author Author [facility] Organization [facility] Address Unknown Phone Unavailable Care Team Providers Care Procurement Assistant Name Role Phone JUSTINSusan PA Unavailable Unavailable [...] is protected by Article 27-F of the [place] [facility] Public [employer] law. If you continue you may have access to information: Regarding HIV / AIDS; Provided by facilities licensed or operated by the [facility] Office of Mental Health; or Provided by the [facility] Office for People With Developmental Disabilities. If such information is present, then the following [facility] mandated warning applies: This information has been [...] law may result in a fine or fdc sentence or both. A general authorization for the release of medical or other information is NOT sufficient authorization for further disc losure. Allergies and Adverse Reactions Type Description Substance Reaction Status Data Source(s ) No Known Drug Allergies No Known Drug Allergies No Known Drug Aller gies active [facility] ([facility] ) Encounters Encounter Providers Location Date Indications Data Source(s ) Unknown [address] [facility] [address] 06/25/2020 12:00:00 AM EST eCW1 ([facility]) Outpatient [address] [facility] [place] [address] 06/18/2020 12:00:00 AM EST eCW1 ([facility]) Unknown [address] [facility] [place] [address] 06/18/2020 12:00:00 AM EST eCW1 ([facility]) Outpatient [address] [facility] [place] [address] 06/05/2020 12:00:00 AM EST eCW1 ([facility]) 05/30/2020 12:00:00 AM EST - 020 10:27:04 AM EST NETSMART ([facility]) Emergency Attender: DESHAUN RIOJAS 03/22 02:27:00 PM EDT - 04/12/2020 02:57:00 PM EDT [facility] Patient discharged. Medications Medication Brand Name Start [...] active Nicoderm CQ 14 MG/24 HR eCW1 ([facility]) 24 HR Nicotine 0.583 MG/HR Transdermal P atch [Nicoderm C-Q] Nicoderm CQ 14 MG/24HR Nicoderm CQ 14 MG/24HR 06/06/2020 12:00:00 AM EST 1.0 {patch_to_skin} active Nicoderm CQ 14 MG/24 HR eCW1 ([facility]) 24 HR Nicotine 0.583 MG/HR Transdermal P atch [Nicoderm C-Q] Nicoderm CQ 14 MG/24HR Nicoderm CQ 14 MG/24HR 06/06/2020 12:00:00 AM EST 1.0 {patch_to_skin} active Nicoderm CQ 14 MG/24 HR eCW1 ([facility]) 24 HR Nicotine 0.583 MG/HR Transdermal P atch [Nicoderm C-Q] Nicoderm CQ 14 MG/24HR Nicoderm CQ 14 MG/24HR 06/06/2020 12:00:00 AM EST 1.0 {patch_to_skin} active Nicoderm CQ 14 MG/24 HR eCW1 ([facility]) Prednisone 20 MG Oral Tablet PredniSONE 20 MG PredniSONE 20 MG 06/05/2020 12:00:00 AM EST 2.0 {tablets} suspended PredniSONE 20 MG eCW1 ([facility]) Albuterol 0.83 MG/ML Inhalant Solution Albuterol Sulfa te (2.5 MG/3ML) 0.083% Albuterol Sulfate (2.5 MG/3ML) 0.083% 06/05/2020 12:00:00 AM EST 3.0 {ml_as_needed} active Albuterol Sulfate (2.5 MG/3ML) 0.083% eCW1 ([facility]) Methadone Hydrochloride 2 MG/ML Oral Solution Methadon e HCl 10 MG/5ML Methadone HCl 10 MG/5ML 06/05/2020 12:00:00 AM EST 20.0 {ml} a ctive Methadone HCl 10 MG/5ML eCW1 ([facility]) Albuterol Sulfate HFA 108 (90 Base) MCG/ACT Albuterol Sulfate HFA 108 (90 Base) MCG/ACT 06/05/2020 12:00:00 AM EST 1.0 {puff_as_needed} active Albuterol Sulfate HFA 108 (90 Base) MCG/ACT eCW1 ([facility]) Prednisone 20 MG Oral Tablet PredniSONE 20 MG PredniSONE 20 MG 06/05/2020 12:00:00 AM EST 2.0 {tablets} suspended PredniSONE 20 MG eCW1 ([facility]) Albuterol 0.83 MG/ML Inhalant Solution Albuterol Sulfa te (2.5 MG/3ML) 0.083% Albuterol Sulfate (2.5 MG/3ML) 0.083% 06/05/2020 12:00:00 AM EST 3.0 {ml_as_needed} active Albuterol Sulfate (2.5 MG/3ML) 0.083% eCW1 ([facility]) Methadone Hydrochloride 2 MG/ML Oral Solution Methadon e HCl 10 MG/5ML Methadone HCl 10 MG/5ML 06/05/2020 12:00:00 AM EST 20.0 {ml} a ctive Methadone HCl 10 MG/5ML eCW1 ([facility]) Albuterol Sulfate HFA 108 (90 Base) MCG/ACT Albuterol Sulfate HFA 108 (90 Base) MCG/ACT 06/05/2020 12:00:00 AM EST 1.0 {puff_as_needed} active Albuterol Sulfate HFA 108 (90 Base) MCG/ACT eCW1 ([facility]) Prednisone 20 MG Oral Tablet PredniSONE 20 MG PredniSONE 20 MG 06/05/2020 12:00:00 AM EST 2.0 {tablets} suspended PredniSONE 20 MG eCW1 ([facility]) Albuterol Sulfate HFA 108 (90 Base) MCG/ACT Albuterol Sulfate HFA 108 (90 Base) MCG/ACT 06/05/2020 12:00:00 AM EST 1.0 {puff_as_needed} active Albuterol Sulfate HFA 108 (90 Base) MCG/ACT eCW1 ([facility]) Prednisone 20 MG Oral Tablet PredniSONE 20 MG PredniSONE 20 MG 06/05/2020 12:00:00 AM EST 2.0 {tablets} active P redniSONE 20 MG eCW1 ([facility]) Albuterol 0.83 MG/ML Inhalant Solution Albuterol Sulfa te (2.5 MG/3ML) 0.083% Albuterol Sulfate (2.5 MG/3ML) 0.083% 06/05/2020 12:00:00 AM EST 3.0 {ml_as_needed} active Albuterol Sulfate (2.5 MG/3ML) 0.083% eCW1 ([facility]) Albuterol Sulfate HFA 108 (90 Base) MCG/ACT Albuterol Sulfate HFA 108 (90 Base) MCG/ACT 06/05/2020 12:00:00 AM EST 1.0 {puff_as_needed} active Albuterol Sulfate HFA 108 (90 Base) MCG/ACT eCW1 ([facility]) Albuterol 0.83 MG/ML Inhalant Solution Albuterol Sulfa te (2.5 MG/3ML) 0.083% Albuterol Sulfate (2.5 MG/3ML) 0.083% 06/05/2020 12:00:00 AM EST 3.0 {ml_as_needed} active Albuterol Sulfate (2.5 MG/3ML) 0.083% eCW1 ([facility]) Methadone Hydrochloride 2 MG/ML Oral Solution Methadon e HCl 10 MG/5ML Methadone HCl 10 MG/5ML 06/05/2020 12:00:00 AM EST 20.0 {ml} a ctive Methadone HCl 10 MG/5ML eCW1 ([facility]) Methadone Hydrochloride 2 MG/ML Oral Solution Methadon e HCl 10 MG/5ML Methadone HCl 10 MG/5ML 06/05/2020 12:00:00 AM EST 20.0 {ml} a ctive Methadone HCl 10 MG/5ML eCW1 ([facility]) Methadone HCl 10 MG Methadone HCl 05/30/2020 12:00:00 AM EST completed NETSMART ([facility]) AmLODIPine Besylate 5 MG AmLODIPine Besylate 05/30/2020 12:00:00 AM EST completed NETSMART ([facility]) Metoprolol Tartrate 25 MG Metoprolol Tartrate 05/30/2020 12:00:[address] completed NETSMART ([facility]) CloNIDine HCl 0.3 MG CloNIDine HCl 05/30/2020 12:00:00 AM EST completed NETSMART ([facility]) Insurance Providers Payer name Policy type / Coverage type Policy ID Covered libertarian ID Covered libertarian's relationship to mckeon Policy Mckeon Plan Information ALONSO [id number] SP [id number] [place] [id number] S [id number] [employer] MEDICAID [id number] S [id number] SELF PAY [id number] S [id number] SELF PAY [id number] S [id number] PROGRESSIVE CO NO FAULT [id number] SP [id number] SELF PAY HEA S SELF PAY HEA S SELF PAY ONLY [id number] SP [id number] POMCO [id number] MO2 [id number] POMCO PPO O [id number] S [id number] SELF PAY UNAVAILABLE SP UNAVAILA [employer] [id number] MO2 [id number] Problems, Conditions, and Diagnoses Code Display Name Description Problem Type Effective Dates Data Source(s) I10 [id number] Hypertension, unspecified type Problem 06/18 12:00:00 AM EST eCW1 ([facility]) F17.210 [id number] Cigarette nicotine dependence without com plication Problem 06/06/2020 12:00:00 AM EST eCW1 ([facility]) J45.909 [id number] Asthma, unspecified asthma severity, unspecified whether complicated, unspecified whether persistent Problem 06/05/2020 12:00 :00 AM EST eCW1 ([facility]) J18.9 Pneumonia, unspecified organism Pneumonia, unspecified organism Problem 05/26/2020 12:00:00 AM EST NETSMART ([facility] ) B95.61 Methicillin susceptible Stap hylococcus aureus infection as the cause of diseases classified elsewhere Methicillin susceptible Staphylococcus a ureus infection as the cause of diseases classified elsewhere Problem 05/01/2020 12:00:00 AM EST NETSMART ([facility] ) B96.3 Hemophilus influenzae [H. in fluenzae] as the cause of diseases classified elsewhere Hemophilus influenzae [H. influenzae] as the cause of diseases classified elsewhere Problem 05/01/2020 12:00:00 AM EST NETSMART ([facility]) B96.89 Other specified bacterial ag ents as the cause of diseases classified elsewhere Other specified bacterial agents as the cause of diseases classified elsewhere Problem 05/01/2020 12:00:00 AM EST NETSMART ([facility]) M62.82 Rhabdomyolysis Rhabdomyolysis Problem 05/01/2020 12:00: 00 AM EST NETSMART ([facility]) J96.01 Acute respiratory failure with hypoxia A cute respiratory failure with hypoxia Problem 05/01/2020 12:00:00 AM EST NETSMART ([facility]) T40.1X1S Poisoning by heroin, accidental (uninten tional), sequela Poisoning by heroin, accidental (unintentional), sequela Problem 05/01/2020 12:00 :00 AM EST NETSMART ([facility]) G47.30 Sleep apnea, unspecified Sleep apnea, unspecified Prob jatinder 05/01/2020 12:00:00 AM EST NETSMART ([facility] ) E66.01 Morbid (severe) obesity due to excess ca lories Morbid (severe) obesity due to excess calories Problem 05/01/2020 12:00:00 AM EST NETSMART ( [facility]) F11.10 Opioid abuse, uncomplicated Opioid abuse, uncomplicate d Problem 05/01/2020 12:00:00 AM EST NETSMART ([facility] ) F12.10 Cannabis abuse, uncomplicated Cannabis abuse, uncompli cated Problem 05/01/2020 12:00:00 AM EST NETSMART ([facility] ) F14.10 Cocaine abuse, uncomplicated Cocaine abuse, uncomplica jaylan Problem 05/01/2020 12:00:00 AM EST NETSMART ([facility] ) F13.10 Sedative, hypnotic or anxiolytic abuse, uncomplicated Sedative, hypnotic or anxiolytic abuse, uncomplicated Problem 05/01/2020 12:00:00 AM ES T NETSMART ([facility]) Z91.81 History of falling History of falling Problem 0 12:00:00 AM EST NETSMART ([facility]) Z68.41 Body mass index [BMI]40.0-44.9, adult [place] mass index [BMI]40.0-44.9, adult Problem 05/01/2020 12:00:00 AM EST NETSMART ([facility]) 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 Diagnosis 04/12/2020 02:27:00 PM EDT [facility] F17.210 Nicotine dependence, cigarettes, uncompl icated NICOTINE DEPENDENCE, CIGARETTES, UNCOMPLICATED Diagnosis 04/12/2020 02:27:00 PM EDT [facility] F19.10 Other psychoactive substance abuse, unco mplicated OTHER PSYCHOACTIVE SUBSTANCE ABUSE, UNCOMPLICATED Diagnosis 04/12/2020 02:27:00 PM EDT [facility] K52.9 Noninfective gastroenteritis and colitis , unspecified NONINFECTIVE GASTROENTERITIS AND COLITIS, UNSPECIF Diagnosis 04/12/2020 02:27:00 PM EDT [facility] R10.84 Generalized abdominal pain GENERALIZED ABDOMINAL PAIN Diagnosis 04/12/2020 02:27:00 PM [facility] Results ID Date Data Source [id number] 06/08/2020 07:29:00 AM EST [facility] Name Value Range Interpretation Code Description Data Juany rce(s) Supporting Document(s) Respiratory pathogens identified [Type] in Nasopharynx by Probe and target amplification method [facility] This lab was ordered by [facility] a nd reported by [facility]. ID Date Data Source [id number] 04/14/2020 06:09:00 AM [facility] Patient: LILO MARTINEZ Observation Report - [facility].VisitID: [id number] [place] [address] [phone], MRegistration Date/Time: 04/12/2020 13:00 Weight:149.6 kg (S). [...] Current Smoker completed Curre nt Smoker eCW1 ([facility]) Smoking 06/18/2020 12:00:00 AM EST Current Smoker completed Curre nt Smoker eCW1 ([facility]) Smoking 06/18/2020 12:00:00 AM EST Current Smoker completed Curre nt Smoker eCW1 ([facility]) Smoking 06/05/2020 12:00:00 AM EST Current Smoker completed Curre nt Smoker eCW1 ([facility]) Vital Signs ID Date Data Source UNK Name Value Range Interpretation Code Description Data Source(s) Diastolic blood pressure 67 mm[Hg] 67 mm[Hg] eCW1 ([facility]) Systolic blood pressure 138 mm[Hg] 138 mm[Hg] e CW1 ([facility]) Body temperature 97.8 [degF] 97.8 [degF] eCW1 ( [facility]) Respiratory rate 16 /min 16 /min eCW1 ([facility]) Heart rate 77 /min 77 /min eCW1 ([facility]) Body mass index (BMI) [Ratio] 47.84 kg/m2 47.84 kg/m2 eCW1 ([facility]) Body height 69 [in_i] 69 [in_i] eCW1 ([facility]) Body weight 324 [lb_av] 324 [lb_av] eCW1 ([facility]) Diastolic blood pressure 59 mm[Hg] 59 mm[Hg] eCW1 ([facility]) Systolic blood pressure 111 mm[Hg] 111 mm[Hg] e CW1 ([facility]) Body temperature 96.9 [degF] 96.9 [degF] eCW1 ( [facility]) Respiratory rate 17 /min 17 /min eCW1 ([facility]) Heart rate 81 /min 81 /min eCW1 ([facility]) Body mass index (BMI) [Ratio] 47.84 kg/m2 47.84 kg/m2 eCW1 ([facility]) Body height 69 [in_i] 69 [in_i] eCW1 ([facility]) Body weight 324 [lb_av] 324 [lb_av] eCW1 ([facility]) Patient Treatment Plan of Care Planned Activity Planned Date Details Description Data Source (s) 24 HR Nicotine 0.583 MG/HR Transdermal Patch [Nicoderm C-Q] 06/06/2020 12:00:00 AM EST eCW1 ([facility]) Albuterol Sulfate HFA 108 (90 Base) MCG/ACT 06/05/2020 12:00:00 AM EST eCW1 ([facility]) Albuterol Sulfate HFA 108 (90 Base) MCG/ACT 06/05/2020 12:00:00 AM EST eCW1 ([facility]) Albuterol Sulfate HFA 108 (90 Base) MCG/ACT 06/05/2020 12:00:00 AM EST eCW1 ([facility]) Prednisone 20 MG Oral Tablet 06/05/2020 12:00:00 AM EST eCW1 ([facility]) Albuterol Sulfate HFA 108 (90 Base) MCG/ACT 06/05/2020 12:00:00 AM EST eCW1 ([facility]) Albuterol 0.83 MG/ML Inhalant Solution 06/05/2020 12:00:00 AM EST eCW1 ([facility]) CloNIDine HCl 0.3 MG 05/30/2020 12:00:00 AM EST NETSMART ([facility]) Metoprolol Tartrate 25 MG 05/30/2020 12:00:00 AM EST NETSMART ([facility]) AmLODIPine Besylate 5 MG 05/30/2020 12:00:00 AM EST NETSMART ([facility]) Methadone HCl 10 MG 05/30/2020 12:00:00 AM EST NETSMART ([facility])
[2020-07-04 13:35] LABS: BASO % 0.4 % (0.0-1.0); EOS # 0.4 10^3/uL (0.0-0.5); EOS % 3.6 % (0.0-3.0); HEMATOCRIT 34.9 % (42.0-52.0); HEMOGLOBIN 11.2 g/dl (13.5-17.5); LYMPH % 19.3 % (24.0-44.0); MEAN CORPUSCULAR HEMOGLOBIN 29.9 pg (27.0-33.0); MEAN CORPUSCULAR HGB CONC 32.1 g/dl (32.0-36.5); MEAN CORPUSCULAR VOLUME 93.3 fl (80.0-96.0); MONO # 0.7 10^3/uL (0.0-0.8); NEUTROPHILS # 7.3 10^3/uL (1.5-8.5); NEUTROPHILS % 69.2 % (36.0-66.0); PLATELET COUNT, AUTOMATED 324 10^3/uL (150-450); RED BLOOD COUNT 3.74 10^6/uL (4.30-6.10); WHITE BLOOD COUNT 10.6 10^3/uL (4.0-10.0)
[2020-07-04 13:46] LABS: INR 1.04; PROTHROMBIN TIME 13.8 SECONDS (12.5-14.3)
[2020-07-04] MEDS ORDERED: ISOVUE-370 76% 100ML VIAL As Ordered ONE (13:46)
[2020-07-04 14:03] LABS: ALBUMIN 3.1 GM/DL (3.2-5.2); ALT/SGPT 27 U/L (12-78); BILIRUBIN,DIRECT 0.1 MG/DL (0.0-0.2); BILIRUBIN,TOTAL 0.5 MG/DL (0.2-1.0); CK-MB VALUE MASS 1.9 NG/ML (<3.6); CPK CREATINE PHOSPHOKINASE 64 U/L (39-308); MB/CK RELATIVE INDEX 2.97 (< OR =4); NT-PRO BNP 595 PG/ML (<125); THYROID STIMULATING HORMONE 0.792 uIU/ML (0.358-3.740); TOTAL PROTEIN 6.3 GM/DL (6.4-8.2); TROPONIN I < 0.02 NG/ML (< 0.10)
--- NOTE | 2020-07-04 15:09 | REP ---
INDICATION: hypoxia COMPARISON: None. TECHNIQUE: Axial contrast enhanced images from the thoracic inlet to the upper abdomen using pulmonary embolus technique with multiplanar re-formations. 75 ml Isovue 370 intravenous contrast material administered without complication. This CT examination was performed using the following dose reduction techniques: Automated exposure control, adjustment of mA and/or kv according to the patient's size, and use of iterative reconstruction technique. FINDINGS: Suboptimal enhancement of the pulmonary vasculature limits evaluation. No obvious main or 1st order pulmonary emboli are identified. Thoracic aorta is without aneurysm or dissection. Heart and pericardium appear normal. Significant primarily subcarinal and bilateral hilar (right greater than left) adenopathy is appreciated with significant primarily perihilar and basilar tree in bud opacities including small area of consolidation in the medial right lower lobe and in the left lower lobe. Findings most compatible with acute multifocal pneumonia. No effusion. No pneumothorax. Tracheobronchial tree is patent. IMPRESSION: 1. No definite evidence for pulmonary embolus. 2. Findings consistent with multifocal pneumonia and follow-up to resolution is recommended. <Electronically signed by Alexandro Redd > 07/04/20 [id number]
[2020-07-04 15:40] LABS: AMPHETAMINES LEVEL URINE NEGATIVE (NEGATIVE); BARBITURATES URINE NEGATIVE (NEGATIVE); BENZODIAZEPINES URINE NEGATIVE (NEGATIVE); CANNABINOIDS URINE NEGATIVE (NEGATIVE); COCAINE METABOLITE URINE NEGATIVE (NEGATIVE); METHADONE URINE POSITIVE (NEGATIVE); OPIATES URINE NEGATIVE (NEGATIVE); PHENCYCLIDINE URINE NEGATIVE (NEGATIVE)
[2020-07-04] MEDS ORDERED: LevoFLOXacin IV 750 MG in IV 1 EA IV ONE (16:00)
[2020-07-04] MEDS ORDERED: PIPERACILLIN/TAZOBACTAM SOD 4.5 GM in D5W MINI-BAG PLUS 50 ML IV ONE (16:00)
[2020-07-04] MEDS ORDERED: LISI-542 PO (16:24)
[2020-07-04] MEDS ORDERED: AMLO1TAB25 PO (16:24)
[2020-07-04] MEDS ORDERED: ALBU83IN INH (16:25)
[2020-07-04] MEDS ORDERED: PROAAER10 INH (16:25)
--- NOTE | 2020-07-04 16:41 | ECGEPIP ---
[facility] - ED Test Date: 2020-07-04 Pat Name: LILO MARTINEZ Department: Room: - Gender: Male Folded Cloth Taper: : 1990 Requested By: Emma Verdin Order Number: [id number] Reading MD: Jeovanny Ballard Measurements Intervals [place] Rate: 88 P: 34 DE: 166 QRS: 25 QRSD: 102 T: 12 QT: 362 QTc: 439 Interpretive Statements SINUS RHYTHM SIMILAR TO 06/08/20 Electronically Signed on 07-04-2020 16:41:49 EST by Jeovanny Ballard
[2020-07-04] MEDS ORDERED: ALBUTEROL SULFATE 2.5 MG/0.5 ML INH NEB SOLN INH PRN (17:15)
[2020-07-04] MEDS ORDERED: ALBUTEROL 90 MCG/ACT 8GM HFA INHALER INH PRN (17:15)
--- OUTSIDE RECORDS SUMMARY | 2020-07-04 17:18 | CCD ---
Author Author [facility] Organization [facility] Address Unknown Phone Unavailable Care Team Providers Care Medical Support Assistant Name Role Phone JUSTINSusan PA Unavailable [...] is protected by Article 27-F of the [facility] Public Health law. If you continue you may have access to information: Regarding HIV / AIDS; Provided by facilities licensed or operated by the [facility] Office of Mental Health; or Provided by the [facility] Office for People With Developmental Disabilities. If such information is present, then the following [facility] mandated warning applies: This information has [...] law may result in a fine or alf sentence or both. A general authorization for the release of medical or other information is NOT sufficient authorization for further disc losure. Allergies and Adverse Reactions Type Description Substance Reaction Status Data Source(s ) No Known Drug Allergies No Known Drug Allergies No Known Drug Aller gies active [facility] Encounters Encounter Providers Location Date Indications Data Source(s ) [place] [address] [address] 06/25/2020 12:00:00 AM EST eCW1 ([facility]) [place] [address] [facility] [facility] [address] [place] [address] 06/18/2020 12:00:00 AM EST eCW1 ([facility]) Unknown [address] [facility] [facility] [place] [address] 06/18/2020 12:00:00 AM EST eCW1 ([facility]) [place] [address] [address] 06/05/2020 12:00:00 AM EST eCW1 ([facility]) 05/30/2020 12:00:00 AM EST - 020 10:27:04 AM EST NETSMART ([facility]) Emergency Attender: DESHAUN RIOJAS 03/22 02:27:00 PM EDT - 04/12/2020 02:57:00 PM T [facility] Patient discharged. Medications Medication Brand Name Start [...] active Nicoderm CQ 14 MG/24 HR eCW1 ([facility]) 24 HR Nicotine 0.583 MG/HR Transdermal P atch [Nicoderm C-Q] Nicoderm CQ 14 MG/24HR Nicoderm CQ 14 MG/24HR 06/06/2020 12:00:00 AM EST 1.0 {patch_to_skin} active Nicoderm CQ 14 MG/24 HR eCW1 ([facility]) 24 HR Nicotine 0.583 MG/HR Transdermal P atch [Nicoderm C-Q] Nicoderm CQ 14 MG/24HR Nicoderm CQ 14 MG/24HR 06/06/2020 12:00:00 AM EST 1.0 {patch_to_skin} active Nicoderm CQ 14 MG/24 HR eCW1 ([facility]) 24 HR Nicotine 0.583 MG/HR Transdermal P atch [Nicoderm C-Q] Nicoderm CQ 14 MG/24HR Nicoderm CQ 14 MG/24HR 06/06/2020 12:00:00 AM EST 1.0 {patch_to_skin} active Nicoderm CQ 14 MG/24 HR eCW1 ([facility]) Prednisone 20 MG Oral Tablet PredniSONE 20 MG PredniSONE 20 MG 06/05/2020 12:00:00 AM EST 2.0 {tablets} suspended PredniSONE 20 MG eCW1 ([facility]) Albuterol 0.83 MG/ML Inhalant Solution Albuterol Sulfa te (2.5 MG/3ML) 0.083% Albuterol Sulfate (2.5 MG/3ML) 0.083% 06/05/2020 12:00:00 AM EST 3.0 {ml_as_needed} active Albuterol Sulfate (2.5 MG/3ML) 0.083% eCW1 ([facility]) Methadone Hydrochloride 2 MG/ML Oral Solution Methadon e HCl 10 MG/5ML Methadone HCl 10 MG/5ML 06/05/2020 12:00:00 AM EST 20.0 {ml} a ctive Methadone HCl 10 MG/5ML eCW1 ([facility]) Albuterol Sulfate HFA 108 (90 Base) MCG/ACT Albuterol Sulfate HFA 108 (90 Base) MCG/ACT 06/05/2020 12:00:00 AM EST 1.0 {puff_as_needed} active Albuterol Sulfate HFA 108 (90 Base) MCG/ACT eCW1 ([facility]) Prednisone 20 MG Oral Tablet PredniSONE 20 MG PredniSONE 20 MG 06/05/2020 12:00:00 AM EST 2.0 {tablets} suspended PredniSONE 20 MG eCW1 ([facility]) Albuterol 0.83 MG/ML Inhalant Solution Albuterol Sulfa te (2.5 MG/3ML) 0.083% Albuterol Sulfate (2.5 MG/3ML) 0.083% 06/05/2020 12:00:00 AM EST 3.0 {ml_as_needed} active Albuterol Sulfate (2.5 MG/3ML) 0.083% eCW1 ([facility]) Methadone Hydrochloride 2 MG/ML Oral Solution Methadon e HCl 10 MG/5ML Methadone HCl 10 MG/5ML 06/05/2020 12:00:00 AM EST 20.0 {ml} a ctive Methadone HCl 10 MG/5ML eCW1 ([facility]) Albuterol Sulfate HFA 108 (90 Base) MCG/ACT Albuterol Sulfate HFA 108 (90 Base) MCG/ACT 06/05/2020 12:00:00 AM EST 1.0 {puff_as_needed} active Albuterol Sulfate HFA 108 (90 Base) MCG/ACT eCW1 ([facility]) Prednisone 20 MG Oral Tablet PredniSONE 20 MG PredniSONE 20 MG 06/05/2020 12:00:00 AM EST 2.0 {tablets} suspended PredniSONE 20 MG eCW1 ([facility]) Albuterol Sulfate HFA 108 (90 Base) MCG/ACT Albuterol Sulfate HFA 108 (90 Base) MCG/ACT 06/05/2020 12:00:00 AM EST 1.0 {puff_as_needed} active Albuterol Sulfate HFA 108 (90 Base) MCG/ACT eCW1 ([facility]) Prednisone 20 MG Oral Tablet PredniSONE 20 MG PredniSONE 20 MG 06/05/2020 12:00:00 AM EST 2.0 {tablets} active P redniSONE 20 MG eCW1 ([facility]) Albuterol 0.83 MG/ML Inhalant Solution Albuterol Sulfa te (2.5 MG/3ML) 0.083% Albuterol Sulfate (2.5 MG/3ML) 0.083% 06/05/2020 12:00:00 AM EST 3.0 {ml_as_needed} active Albuterol Sulfate (2.5 MG/3ML) 0.083% eCW1 ([facility]) Albuterol Sulfate HFA 108 (90 Base) MCG/ACT Albuterol Sulfate HFA 108 (90 Base) MCG/ACT 06/05/2020 12:00:00 AM EST 1.0 {puff_as_needed} active Albuterol Sulfate HFA 108 (90 Base) MCG/ACT eCW1 ([facility]) Albuterol 0.83 MG/ML Inhalant Solution Albuterol Sulfa te (2.5 MG/3ML) 0.083% Albuterol Sulfate (2.5 MG/3ML) 0.083% 06/05/2020 12:00:00 AM EST 3.0 {ml_as_needed} active Albuterol Sulfate (2.5 MG/3ML) 0.083% eCW1 ([facility]) Methadone Hydrochloride 2 MG/ML Oral Solution Methadon e HCl 10 MG/5ML Methadone HCl 10 MG/5ML 06/05/2020 12:00:00 AM EST 20.0 {ml} a ctive Methadone HCl 10 MG/5ML eCW1 ([facility]) Methadone Hydrochloride 2 MG/ML Oral Solution Methadon e HCl 10 MG/5ML Methadone HCl 10 MG/5ML 06/05/2020 12:00:00 AM EST 20.0 {ml} a ctive Methadone HCl 10 MG/5ML eCW1 ([facility]) Methadone HCl 10 MG Methadone HCl 05/30/2020 12:00:00 AM EST completed NETSMART ([facility]) AmLODIPine Besylate 5 MG AmLODIPine Besylate 05/30/2020 12:00:00 AM EST completed NETSMART ([facility]) Metoprolol Tartrate 25 MG Metoprolol Tartrate 05/30/2020 12:00:[address] completed NETSMART ([facility]) CloNIDine HCl 0.3 MG CloNIDine HCl 05/30/2020 12:00:00 AM EST completed NETSMART ([facility]) Insurance Providers Payer name Policy type / Coverage type Policy ID Covered alliance party ID Covered alliance party's relationship to mckeon Policy Mckeon Plan Information ALONSO [id number] SP [id number] [place] [id number] S [id number] [employer] MEDICAID [id number] S [id number] SELF PAY [id number] S [id number] SELF PAY [id number] S [id number] PROGRESSIVE CO NO FAULT [id number] SP [id number] SELF PAY HEA S SELF PAY HEA S SELF PAY ONLY [id number] SP [id number] MO2 [id number] [place] PPO O [id number] S [id number] SELF PAY UNAVAILABLE SP UNAVAILA [facility] [id number] MO2 [id number] Problems, Conditions, and Diagnoses Code Display Name Description Problem Type Effective Dates Data Source(s) I10 [id number] Hypertension, unspecified type Problem 06/18 12:00:00 AM EST eCW1 ([facility]) F17.210 [id number] Cigarette nicotine dependence without com plication Problem 06/06/2020 12:00:00 AM EST eCW1 ([facility]) J45.909 [id number] Asthma, unspecified asthma severity, unspecified whether complicated, unspecified whether persistent Problem 06/05/2020 12:00 :00 AM EST eCW1 ([facility]) J18.9 Pneumonia, unspecified organism Pneumonia, unspecified organism Problem 05/26/2020 12:00:00 AM EST NETSMART ([facility] ) B95.61 Methicillin susceptible Stap hylococcus aureus infection as the cause of diseases classified elsewhere Methicillin susceptible Staphylococcus a ureus infection as the cause of diseases classified elsewhere Problem 05/01/2020 12:00:00 AM EST NETSMART ([facility] ) B96.3 Hemophilus influenzae [H. in fluenzae] as the cause of diseases classified elsewhere Hemophilus influenzae [H. influenzae] as the cause of diseases classified elsewhere Problem 05/01/2020 12:00:00 AM EST NETSMART ([facility]) B96.89 Other specified bacterial ag ents as the cause of diseases classified elsewhere Other specified bacterial agents as the cause of diseases classified elsewhere Problem 05/01/2020 12:00:00 AM EST NETSMART ([facility]) M62.82 Rhabdomyolysis Rhabdomyolysis Problem 05/01/2020 12:00: 00 AM EST NETSMART ([facility]) J96.01 Acute respiratory failure with hypoxia A cute respiratory failure with hypoxia Problem 05/01/2020 12:00:00 AM EST NETSMART ([facility]) T40.1X1S Poisoning by heroin, accidental (uninten tional), sequela Poisoning by heroin, accidental (unintentional), sequela Problem 05/01/2020 12:00 :00 AM EST NETSMART ([facility]) G47.30 Sleep apnea, unspecified Sleep apnea, unspecified Prob jatinder 05/01/2020 12:00:00 AM EST NETSMART ([facility] ) E66.01 Morbid (severe) obesity due to excess ca lories Morbid (severe) obesity due to excess calories Problem 05/01/2020 12:00:00 AM EST NETSMART ( [facility]) F11.10 Opioid abuse, uncomplicated Opioid abuse, uncomplicate d Problem 05/01/2020 12:00:00 AM EST NETSMART ([facility] ) F12.10 Cannabis abuse, uncomplicated Cannabis abuse, uncompli cated Problem 05/01/2020 12:00:00 AM EST NETSMART ([facility] ) F14.10 Cocaine abuse, uncomplicated Cocaine abuse, uncomplica jaylan Problem 05/01/2020 12:00:00 AM EST NETSMART ([facility] ) F13.10 Sedative, hypnotic or anxiolytic abuse, uncomplicated Sedative, hypnotic or anxiolytic abuse, uncomplicated Problem 05/01/2020 12:00:00 AM ES T NETSMART ([facility]) Z91.81 History of falling History of falling Problem 0 12:00:00 AM EST NETSMART ([facility]) Z68.41 Body mass index [BMI]40.0-44.9, adult N[place] dy mass index [BMI]40.0-44.9, adult Problem 05/01/2020 12:00:00 AM EST NETSMART ([facility]) Z79.899 Other correction (current) drug therapy O [facility] (CURRENT) DRUG THERAPY Diagnosis 04/12/2020 02:27:00 PM EDT [facility] F17.210 Nicotine dependence, cigarettes, uncompl icated NICOTINE DEPENDENCE, CIGARETTES, UNCOMPLICATED Diagnosis 04/12/2020 02:27:00 PM EDT [facility] F19.10 Other psychoactive substance abuse, unco mplicated OTHER PSYCHOACTIVE SUBSTANCE ABUSE, UNCOMPLICATED Diagnosis 04/12/2020 02:27:00 PM EDT [facility] K52.9 Noninfective gastroenteritis and colitis , unspecified NONINFECTIVE GASTROENTERITIS AND COLITIS, UNSPECIF Diagnosis 04/12/2020 02:27:00 PM [facility] R10.84 Generalized abdominal pain GENERALIZED ABDOMINAL PAIN Diagnosis 04/12/2020 02:27:00 PM [facility] Results ID Date Data Source [id number] 06/08/2020 07:29:00 AM EST [facility] Name Value Range Interpretation Code Description Data Juany rce(s) Supporting Document(s) Respiratory pathogens identified [Type] in Nasopharynx by Probe and target amplification method [facility] This lab was ordered by [facility] a nd reported by [facility]. ID Date Data Source [id number] 04/14/2020 06:09:00 AM [facility] Patient: LILO MARTINEZ Observation Report - [facility]VisitID: [id number] [place] [address] [phone], MRegistration Date/Time: 04/12/2020 13:00 Weight:149.6 kg (S). [...] Current Smoker completed Curre nt Smoker eCW1 ([facility]) Smoking 06/18/2020 12:00:00 AM EST Current Smoker completed Curre nt Smoker eCW1 ([facility]) Smoking 06/18/2020 12:00:00 AM EST Current Smoker completed Curre nt Smoker eCW1 ([facility]) Smoking 06/05/2020 12:00:00 AM EST Current Smoker completed Curre nt Smoker eCW1 ([facility]) Vital Signs ID Date Data Source UNK Name Value Range Interpretation Code Description Data Source(s) Diastolic blood pressure 67 mm[Hg] 67 mm[Hg] eCW1 ([facility]) Systolic blood pressure 138 mm[Hg] 138 mm[Hg] e CW1 ([facility]) Body temperature 97.8 [degF] 97.8 [degF] eCW1 ( [facility]) Respiratory rate 16 /min 16 /min eCW1 ([facility]) Heart rate 77 /min 77 /min eCW1 ([facility]) Body mass index (BMI) [Ratio] 47.84 kg/m2 47.84 kg/m2 eCW1 ([facility]) Body height 69 [in_i] 69 [in_i] eCW1 ([facility]) Body weight 324 [lb_av] 324 [lb_av] eCW1 ([facility]) Diastolic blood pressure 59 mm[Hg] 59 mm[Hg] eCW1 ([facility]) Systolic blood pressure 111 mm[Hg] 111 mm[Hg] e CW1 ([facility]) Body temperature 96.9 [degF] 96.9 [degF] eCW1 ( [facility]) Respiratory rate 17 /min 17 /min eCW1 ([facility]) Heart rate 81 /min 81 /min eCW1 ([facility]) Body mass index (BMI) [Ratio] 47.84 kg/m2 47.84 kg/m2 eCW1 ([facility]) Body height 69 [in_i] 69 [in_i] eCW1 ([facility]) Body weight 324 [lb_av] 324 [lb_av] eCW1 ([facility]) Patient Treatment Plan of Care Planned Activity Planned Date Details Description Data Source (s) 24 HR Nicotine 0.583 MG/HR Transdermal Patch [Nicoderm C-Q] 06/06/2020 12:00:00 AM EST eCW1 ([facility]) Albuterol Sulfate HFA 108 (90 Base) MCG/ACT 06/05/2020 12:00:00 AM EST eCW1 ([facility]) Albuterol Sulfate HFA 108 (90 Base) MCG/ACT 06/05/2020 12:00:00 AM EST eCW1 ([facility]) Albuterol Sulfate HFA 108 (90 Base) MCG/ACT 06/05/2020 12:00:00 AM EST eCW1 ([facility]) Prednisone 20 MG Oral Tablet 06/05/2020 12:00:00 AM EST eCW1 ([facility]) Albuterol Sulfate HFA 108 (90 Base) MCG/ACT 06/05/2020 12:00:00 AM EST eCW1 ([facility]) Albuterol 0.83 MG/ML Inhalant Solution 06/05/2020 12:00:00 AM EST eCW1 ([facility]) CloNIDine HCl 0.3 MG 05/30/2020 12:00:00 AM EST NETSMART ([facility]) Metoprolol Tartrate 25 MG 05/30/2020 12:00:00 AM EST NETSMART ([facility]) AmLODIPine Besylate 5 MG 05/30/2020 12:00:00 AM EST NETSMART ([facility]) Methadone HCl 10 MG 05/30/2020 12:00:00 AM EST NETSMART ([facility])
--- NOTE | 2020-07-04 18:15 | REPVR ---
PROCEDURE INFORMATION: Exam: US Duplex Lower Extremity Veins, Bilateral Exam date and time: 07/04/2020 5:15 PM Age: 30 years old Clinical indication: Swelling (edema) of limb; Lower extremity, bilateral; Additional info: Bilateral leg swelling, looking for dvt TECHNIQUE: Imaging protocol: Real-time duplex ultrasound of the extremities with 2-D hopson scale, color Doppler flow and spectral waveform analysis with image documentation. Complete exam focused on the bilateral lower extremity veins. COMPARISON: No relevant prior studies available. FINDINGS: Right deep veins: Unremarkable. The common femoral, femoral, proximal profunda femoral and popliteal veins are patent without thrombus. Normal Doppler waveforms. Normal compressibility and/or augmentation response. Right superficial veins: Saphenofemoral junction is patent without thrombus. Left deep veins: Unremarkable. The common femoral, femoral, proximal profunda femoral and popliteal veins are patent without thrombus. Normal Doppler waveforms. Normal compressibility and/or augmentation response. Left superficial veins: Saphenofemoral junction is patent without thrombus. Soft tissues: Soft tissue swelling greater on the left. IMPRESSION: No evidence of deep vein thrombosis. Electronically signed by: Andre Badillo On 07/04/2020 18:14:42 PM
[2020-07-04 18:22] LABS: BLOOD UREA NITROGEN 5 MG/DL (7-18); CALCIUM LEVEL 9.4 MG/DL (8.5-10.1); CARBON DIOXIDE LEVEL 30 MEQ/L (21-32); CHLORIDE LEVEL 101 MEQ/L (98-107); CREATININE FOR GFR 0.46 MG/DL (0.70-1.30); GLOMERULAR FILTRATION RATE > 60.0 (>60); GLUCOSE, FASTING 89 MG/DL (70-100); POTASSIUM SERUM 4.2 MEQ/L (3.5-5.1); SODIUM LEVEL 136 MEQ/L (136-145)
--- NOTE | 2020-07-04 19:45 | HPEPDOC ---
General Date of Admission Jul 04, 2020 Date of Service: Jul 04, 2020 Chief Complaint The patient is a 30-year-old male admitted with a reason for visit of SOB. Source: Patient History of Present Illness Mr. Saavedra is a 30-year-old male with drug abuse on methadone and multiple intubations who presents with worsening shortness of breath and swelling in his legs. In April 2020, he was intubated at [facility] for 8 days. In May 2020, he was intubated here about 3 days with COVID pneumonia. He tested positive on 06/08/2020. During that hospitalization, he was given remdesivir and dexamethasone. The past few days, he's been noticing increasing shortness of breath. As worse with activity and ambulation. In addition, he's been noticing worsening bilateral pitting edema. His home health nurse noted it to be 2+. He is on his feet frequently, but his PCP wanted to get him an echocardiogram. In the ED, he saturated at 91% at room air, but he saturated in the mid 80s with ambulation. CT angiogram was negative for PE, but it did demonstrate multifocal pneumonia. Patient noted congestion mainly in the morning. Patient will be admitted for multifocal pneumonia. He does have a risk for hospital-acquired pneumonia due to his frequent hospitalizations and intubations. Home Medications Scheduled Amlodipine Besylate (Amlodipine Besylate) 10 Mg Tablet, 10 MG PO DAILY, (Reported) Clonidine HCl (Clonidine HCl) 0.3 Mg Tablet, 0.3 MG PO BID, (Reported) Lisinopril (Lisinopril) 5 Mg Tablet, 5 MG PO DAILY, (Reported) Methadone HCl (Methadone HCl) 10 Mg/5 Ml Solution, 30 MG PO DAILY, (Reported) VERIFIED WITH CREDO Scheduled PRN Albuterol Sulf (Albuterol Sulfate) 2.5 Mg/3 Ml Vial.neb, 2.5 MG INH Q6H PRN for SOB/WHEEZING, (Reported) Albuterol Sulfate (Proair Hfa) 8.5 Gm Hfa.aer.ad, 2 PUFF INH QID PRN for SOB/WHEEZING, (Reported) Allergies Coded Allergies: No Known Allergies (Unverified , 06/19/17) Past Medical History Medical History 1. Hypertension 2. Drug abuse on chronic methadone 3. Morbid obesity 4. Possible laryngeal tracheal trauma from intubation 5. Tested positive for COVID on 06/08/2020 6. KAMILA, does not wear CPAP Surgical History 1. Tonsillectomy 2. Multiple intubations Family History Father: COPD Mother: Thyroid problems Social History * Smoker: former Smoker (Quit a few days ago) Alcohol: occationally (Socially drink) Drugs: marijuana (remote history of marijuana use) A-FIB/CHADSVASC A-FIB History Current/History of A-Fib/PAF?: No Review of Systems Constitutional: Denies: Fever Eyes: Denies: Vision change ENT: Denies: Sore Throat Skin: Denies: Rash Pulmonary: Reports: Dyspnea, Cough Cardiovascular: Denies: Chest Pain Gastrointestinal: Denies: Nausea, Abdominal Pain, Diarrhea, Constipation Genitourinary: Denies: Dysuria Hematologic: Denies: Bruising Musculoskeletal: Reports: Other Symptoms (swelling in legs) Neurological: Reports: Other Symptoms (neuropathy in legs) Physical Examination General Exam: Positive: Alert, Cooperative Eye Exam: Positive: EOMI; Negative: Sclera icteric ENT Exam: Positive: Atraumatic Neck Exam: Positive: Supple Chest Exam: Positive: Diminished, Other (audible extra breath sounds when speaking and breathing) Heart Exam: Positive: Tachycardic, Regular Rhythm Abdomen Exam: Positive: Normal bowel sounds, Soft; Negative: Tenderness Extremity Exam: Positive: Edema (2+ pitting) Neuro Exam: Positive: Normal Speech, Cranial Nerves 3-12 NL Psych Exam: Positive: Mental status NL, Mood NL Vital Signs Vital Signs Date Time Temp Pulse Resp B/P (MAP) Pulse Ox O2 Delivery O2 Flow Rate FiO2 07/04/20 16:20 89 07/04/20 16:02 90 07/04/20 12:31 07/04/20 12:31 Room Air 07/04/20 10:48 97.3 22 Laboratory Data Labs 24H Laboratory Tests 2 07/04/20 13:13: Immature Granulocyte % (Auto) 0.5, Neutrophils (%) (Auto) 69.2H, Lymphocytes (%) (Auto) 19.3L, Monocytes (%) (Auto) 7.0H, Eosinophils (%) (Auto) 3.6H, Basophils (%) (Auto) 0.4, Neutrophils # (Auto) 7.3, Lymphocytes # (Auto) 2.0, Monocytes # (Auto) 0.7, Eosinophils # (Auto) 0.4, Basophils # (Auto) 0.0, Nucleated Red Blood Cells % (auto) 0.0, Prothrombin Time 13.8, Prothromb Time International Ratio 1.04, Total Bilirubin 0.5, Direct Bilirubin 0.1, Aspartate Amino Transf (AST/SGOT) 16, Alanine Aminotransferase (ALT/SGPT) 27, Alkaline Phosphatase 68, Total Creatine Kinase 64, Creatine Kinase MB 1.9, Creatine Kinase MB Relative Index 2.97, Troponin I < 0.02, VG-Awh-P-Type Natriuretic Peptide 595H, Total Protein 6.3L, Albumin 3.1L, Albumin/Globulin Ratio 1.0, Thyroid Stimulating Hormone (TSH) 0.792 07/04/20 14:52: Urine Opiates Screen NEGATIVE, Urine Methadone Screen POSITIVEH, Urine Barbiturates Screen NEGATIVE, Urine Phencyclidine Screen NEGATIVE, Urine Amphetamines Screen NEGATIVE, Urine Benzodiazepines Screen NEGATIVE, Urine Cocaine Metabolite Screen NEGATIVE, Urine Cannabinoids Screen NEGATIVE 07/04/20 16:00: Lactic Acid Level 0.7 CBC/BMP Laboratory Tests 07/04/20 13:13 Microbiology Microbiology 07/04/20 Blood Culture, Received Pending Assessment/Plan Mr. Saavedra is a 30-year-old male with drug abuse on methadone and multiple intubations who presents with worsening shortness of breath and swelling in his legs. Due to his multiple intubations and hospitalizations as well as multifocal pneumonia, we'll treat as hospital-acquired pneumonia. He'll be on vancomycin and Zosyn. Otherwise we'll order ultrasounds of the lower extremity and echocardiogram to workup any edema. It may be secondary to gravity and a mlodipine. Plan / VTE VTE Prophylaxis Ordered?: Yes Plan Plan 1. Multifocal pneumonia Suspecting hospital-acquired due to his multiple intubations and hospitalizations We'll be managed on vancomycin and Zosyn We'll order sputum culture, urinary legionella, and urinary strep 2. History of COVID pneumonia Tested positive on 06/08/2020 It's been more than 3 weeks, he's outside the window for infectivity 3. History of drug abuse Now on methadone Continue methadone His previous hospitalization and intubation at [place] was from drug overdose 4. Bilateral pitting edema We'll work up with echocardiogram and lower extremity ultrasounds May be secondary to long periods of standing and amlodipine. 5. Hypertension Continue amlodipine, lisinopril, and clonidine 6. DVT prophylaxis ANDREW Leon DO Jul 04, 2020 17:13
[2020-07-04] MEDS: VANCOMYCIN HCL 1,000 MG, VIAL MATE ADAPTER 1 EACH in D5W 250 ML IV SCH (20:17)
[2020-07-04] MEDS ORDERED: VANCOMYCIN HCL 1,000 MG, VIAL MATE ADAPTER 1 EACH in D5W 250 ML IV ONE (21:00)
[2020-07-04 21:23] VITALS: BP 167/103
[2020-07-04] MEDS: cloNIDine 0.1MG TABLET PO SCH (22:25)
[2020-07-05] MEDS: PIPERACILLIN/TAZOBACTAM SOD 4.5 GM in D5W MINI-BAG PLUS 50 ML IV SCH ×4 (00:24→18:30)
[2020-07-05] MEDS: VANCOMYCIN HCL 1,000 MG, VIAL MATE ADAPTER 1 EACH in D5W 250 ML IV SCH ×3 (00:31→14:09)
--- NOTE | 2020-07-05 05:55 | REP ---
INDICATION: DYSPNEA/COUGH COMPARISON: 06/10/2020 TECHNIQUE: Portable AP view of the chest FINDINGS: The mediastinum and cardiac silhouette are stable and within normal limits for portable technique. The lung ibrahim are clear without acute consolidation, effusion, or pneumothorax. Skeletal structures are intact. IMPRESSION: No acute cardiopulmonary process appreciated. <Electronically signed by Alexandro Redd > 07/05/20 0524
[2020-07-05 06:00] VITALS: BP 166/98
[2020-07-05] MEDS: lisinopriL 5 MG TAB PO SCH (06:54)
[2020-07-05 07:23] LABS: HEMATOCRIT 34.4 % (42.0-52.0); HEMOGLOBIN 10.8 g/dl (13.5-17.5); MEAN CORPUSCULAR HEMOGLOBIN 29.4 pg (27.0-33.0); MEAN CORPUSCULAR HGB CONC 31.4 g/dl (32.0-36.5); MEAN CORPUSCULAR VOLUME 93.7 fl (80.0-96.0); PLATELET COUNT, AUTOMATED 318 10^3/uL (150-450); RED BLOOD COUNT 3.67 10^6/uL (4.30-6.10); WHITE BLOOD COUNT 9.5 10^3/uL (4.0-10.0)
[2020-07-05 07:44] LABS: BLOOD UREA NITROGEN 4 MG/DL (7-18); CALCIUM LEVEL 8.5 MG/DL (8.5-10.1); CARBON DIOXIDE LEVEL 32 MEQ/L (21-32); CHLORIDE LEVEL 99 MEQ/L (98-107); CREATININE FOR GFR 0.49 MG/DL (0.70-1.30); GLOMERULAR FILTRATION RATE > 60.0 (>60); GLUCOSE, FASTING 91 MG/DL (70-100); POTASSIUM SERUM 4.1 MEQ/L (3.5-5.1); SODIUM LEVEL 137 MEQ/L (136-145)
[2020-07-05] MEDS: ENOXAPARIN 40MG/0.4ML SYRINGE (J1650 PER 10MG) SC SCH (08:53)
[2020-07-05] MEDS: cloNIDine 0.1MG TABLET PO SCH ×2 (08:54→20:46)
[2020-07-05] MEDS: amLODIPine 10 MG TAB PO SCH (08:54)
[2020-07-05] MEDS: METHADONE 10 MG TAB (S0109) PO SCH (08:54)
[2020-07-05 14:00] VITALS: BP 102/72
[2020-07-05 14:04] LABS: VANCOMYCIN LEVEL TROUGH 15.4 UG/ML (10.0-20.0)
[2020-07-05] MEDS ORDERED: FUROSEMIDE 40MG/4ML VIAL (J1940) IV ONE (16:30)
--- NOTE | 2020-07-05 16:42 | IPNPDOC ---
Subjective Date Seen The patient was seen on 07/05/20. Subjective Chief Complaint/HPI Mr. Saavedra is a 30-year-old male with drug abuse on methadone and multiple intubations who presents with worsening shortness of breath and swelling in his legs. This morning, he was seen in his room. He was requiring 2L NC, but tells me that he has KAMILA. In the day time, he still required 2L. Otherwise, denies chest pain or fever. Objective Physical Examination General Exam: Positive: Alert, Cooperative Eye Exam: Positive: EOMI; Negative: Sclera icteric ENT Exam: Positive: Atraumatic Neck Exam: Positive: Supple Chest Exam: Positive: Diminished, Other (audible extra breath sounds when speaking and breathing) Heart Exam: Positive: Tachycardic, Regular Rhythm Abdomen Exam: Positive: Normal bowel sounds, Soft; Negative: Tenderness Extremity Exam: Positive: Edema (2+ pitting) Neuro Exam: Positive: Normal Speech, Cranial Nerves 3-12 NL Psych Exam: Positive: Mental status NL, Mood NL Assessment /Plan Assessment Mr. Saavedra is a 30-year-old male with drug abuse on methadone and multiple intubations who presents with worsening shortness of breath and swelling in his legs. Initially treated as HCAP, but procalcitonin is negative. Sputum gram stain does demonstrate organisms. Pending culture. Will D/C vancomycin, but keep Zosyn for the time being. No leukocytosis. Otherwise pro BNP is mildly elevated, but patient with obesity that is in acute CHF can have only mildly elevated pro BNP. Will give a dose of lasix. Will work towards weaning off oxygen. Plan/VTE VTE Prophylaxis Ordered?: Yes Plan 1. CHF exacerbation -Pending echocardiogram -Pro BNP was only mildly elevated, but obese patient can have false negative pro BNP -Will give a dose of lasix -Pending echocardiogram results 2. Questionable pneumonia -Procalcitonin is negative (<0.05) -Will D/C vancomycin but keep Zosyn, sputum gram stain demonstrates both gram positive and gram negative organisms. -Pending sputum culture, urinary legionella, and urinary strep 2. History of COVID pneumonia Tested positive on 06/08/2020 It's been more than 3 weeks, he's outside the window for infectivity 3. History of drug abuse Now on methadone Continue methadone His previous hospitalization and intubation at [place] was from drug overdose 4. Bilateral pitting edema We'll work up with echocardiogram and lower extremity ultrasounds May be secondary to long periods of standing and amlodipine. 5. Hypertension Continue amlodipine, lisinopril, and clonidine 6. DVT prophylaxis Lovenox Disposition: Pending on weaning off oxygen VS, I&O, 24H, Fishbone Vital Signs/I&O Vital Signs Date Time Temp Pulse Resp B/P (MAP) Pulse Ox O2 Delivery O2 Flow Rate FiO2 07/05/20 14:00 98.1 87 20 102/72 (82) 95 Nasal Cannula 2.0 I&O- Last 24 Hours up to 6 AM 07/05/20 05:59 Intake Total 1300 ml Balance 1300 ml Laboratory Data 24H LABS Laboratory Tests 2 07/04/20 16:00: Lactic Acid Level 0.7 07/04/20 17:47: Anion Gap 5L, Glomerular Filtration Rate > 60.0, Calcium Level 9.4 07/04/20 22:32: Methicillin-Resist S.aureus DNA PCR NOT DETECTED 07/05/20 07:00: Procalcitonin <0.05 07/05/20 07:03: Nucleated Red Blood Cells % (auto) 0.0, Anion Gap 6L, Glomerular Filtration Rate > 60.0, Calcium Level 8.5 07/05/20 10:46: Lab Scanned Report Miscellaneous Lab 07/05/20 12:50: 07/05/20 13:24: C-Reactive Protein, Quantitative 10.00H, Vancomycin Level Trough 15.4 CBC/BMP Laboratory Tests 07/04/20 17:47 07/05/20 07:03 Microbiology Microbiology 07/04/20 Gram Stain - Final, Resulted 07/04/20 Sputum Culture, Resulted Pending 07/04/20 Blood Culture, Received Pending 07/04/20 Blood Culture, Received Pending ANDREW GRANT DO Jul 05, 2020 16:42
[2020-07-05 22:00] VITALS: BP 161/72
[2020-07-06] MEDS: PIPERACILLIN/TAZOBACTAM SOD 4.5 GM in D5W MINI-BAG PLUS 50 ML IV SCH ×2 (00:19→05:40)
[2020-07-06 06:00] VITALS: BP 111/74
[2020-07-06 07:14] LABS: HEMATOCRIT 37.4 % (42.0-52.0); MEAN CORPUSCULAR HEMOGLOBIN 29.7 pg (27.0-33.0); MEAN CORPUSCULAR HGB CONC 32.1 g/dl (32.0-36.5); MEAN CORPUSCULAR VOLUME 92.6 fl (80.0-96.0); PLATELET COUNT, AUTOMATED 365 10^3/uL (150-450); RED BLOOD COUNT 4.04 10^6/uL (4.30-6.10); WHITE BLOOD COUNT 7.4 10^3/uL (4.0-10.0)
[2020-07-06 07:42] LABS: BLOOD UREA NITROGEN 6 MG/DL (7-18); CARBON DIOXIDE LEVEL 35 MEQ/L (21-32); CHLORIDE LEVEL 96 MEQ/L (98-107); CREATININE FOR GFR 0.74 MG/DL (0.70-1.30); GLOMERULAR FILTRATION RATE > 60.0 (>60); GLUCOSE, FASTING 97 MG/DL (70-100); POTASSIUM SERUM 3.8 MEQ/L (3.5-5.1); SODIUM LEVEL 137 MEQ/L (136-145)
[2020-07-06] MEDS ORDERED: FURO40TA2 PO (09:13)
[2020-07-06] MEDS ORDERED: CEFD1CAP8 PO (09:13)
[2020-07-06 09:24] VITALS: BP 126/101
[2020-07-06] MEDS: lisinopriL 5 MG TAB PO SCH (09:24)
[2020-07-06] MEDS: amLODIPine 10 MG TAB PO SCH (09:24)
[2020-07-06] MEDS: METHADONE 10 MG TAB (S0109) PO SCH (09:24)
[2020-07-06] MEDS: cloNIDine 0.1MG TABLET PO SCH (09:24)
[2020-07-06] MEDS: ENOXAPARIN 40MG/0.4ML SYRINGE (J1650 PER 10MG) SC SCH (09:25)
--- NOTE | 2020-07-06 21:45 | DS.PDOC ---
Discharge Summary General Date of Admission Jul 04, 2020 at 17:11 Date of Discharge Jul 06, 2020 Attending Physician: ANDREW GRANT DO Discharge Summary PROCEDURES PERFORMED DURING STAY: None ADMITTING DIAGNOSES: 1. Multifocal pneumonia 2. History of COVID pneumonia 3. History of drug abuse 4. Bilateral pitting edema 5. Hypertension DISCHARGE DIAGNOSES: 1. CHF exacerbation 2. Pneumonia 3. History of COVID PNEUMONIA 4. History of drug abuse 5. Bilateral pitting edema 6. Hypertension 7. Obesity COMPLICATIONS/CHIEF COMPLAINT: Multifocal Pneumonia. HISTORY OF PRESENT ILLNESS: Mr. Saavedra is a 30-year-old male with drug abuse on methadone and multiple intubations who presents with worsening shortness of breath and swelling in his legs. In April 2020, he was intubated at [facility] for 8 days. In May 2020, he was intubated here about 3 days with COVID pneumonia. He tested positive on 06/08/2020. During that hospitalization, he was given remdesivir and dexamethasone. The past few days, he's been noticing increasing shortness of breath. As worse with activity and ambulation. In addition, he's been noticing worsening bilateral pitting edema. His home health nurse noted it to be 2+. He is on his feet frequently, but his PCP wanted to get him an echocardiogram. In the ED, he saturated at 91% at room air, but he saturated in the mid 80s with ambulation. CT angiogram was negative for PE, but it did demonstrate multifocal pneumonia. Patient noted congestion mainly in the morning. Patient will be admitted for multifocal pneumonia. He does have a risk for hospital-acquired pneumonia due to his frequent hospitalizations and intubations. HOSPITAL COURSE: Overnight and into the following morning, he required 2L of NC. Obtained a procalcitonin which was negative. It made diagnosis of bacterial pneumonia less likely. De-escalated antibiotics to cefdinir. Looking at his pro- bnp, it was mildly elevated, which would also be seen in obese patients with acute CHF exacerbation. Gave a dose of IV Lasix. The following day, he was feeling better. He was off of NC. He felt that the Lasix helped him breath better and there was less fluid in his legs. He felt ready for home. Gave him a course of cefdinir and 3 days of PO lasix. Recommended that he weigh himself daily. He may need more Lasix in the future. DISCHARGE MEDICATIONS: Please see below. ALLERGIES: Please see below. PHYSICAL EXAMINATION ON DISCHARGE: VITAL SIGNS: Please see below. GENERAL: Comfortable, in no apparent distress HEENT: Head normocephalic, atraumatic, EOMI, sclera clear NECK: Supple CARDIOVASCULAR EXAMINATION: Regular rate and rhythm RESPIRATORY EXAMINATION: Noisy breathing, otherwise diminished but clear ABDOMINAL EXAMINATION: Obese but soft, non-tender, normal bowel sounds EXTREMITIES: Bilateral pitting edema improved from prior SKIN: Warm and dry NEUROLOGICAL EXAMINATION: CN 3-12 grossly intact PSYCHIATRIC EXAMINATION: Normal mood and affect LABORATORY DATA: Please see below. IMAGING: CXR No acute cardiopulmonary process appreciated. CTA chest 1. No definite evidence for pulmonary embolus. 2. Findings consistent with multifocal pneumonia and follow-up to resolution is recommended. US Lower extremity No evidence of deep vein thrombosis PROGNOSIS: Good ACTIVITY: As tolerated. DIET: 2 gm sodium DISCHARGE PLAN: Home with home services DISPOSITION: Home, Self-Care. DISCHARGE INSTRUCTIONS: 1. Follow up with PCP within a week 2. Referral made to ENT for noisy breathing (from multiple intubations) 3. Weight self daily while on furosemide and off furosemide. You may need to continue furosemide in the future ITEMS TO FOLLOWUP ON ON OUTPATIENT: 1. Echocardiogram DISCHARGE CONDITION: Stable. Total time spent on discharge planning, discharge summary, and medication reconciliation: 45 minutes Vital Signs/I&Os Vital Signs Date Time Temp Pulse Resp B/P (MAP) Pulse Ox O2 Delivery O2 Flow Rate FiO2 07/06/20 09:47 16 07/06/20 09:24 126/101 07/06/20 06:00 97.8 78 91 Room Air 07/05/20 22:00 2.0 I&O- Last 24 Hours up to 6 AM 07/06/20 06:00 Intake Total 2830 ml Output Total 600 ml Balance 2230 ml Laboratory Data Labs 24H Laboratory Tests 2 07/06/20 06:36: Nucleated Red Blood Cells % (auto) 0.0, Anion Gap 6L, Glomerular Filtration Rate > 60.0, Calcium Level 9.0 CBC/BMP Laboratory Tests 07/06/20 06:36 Microbiology Microbiology 07/04/20 Gram Stain - Final, Resulted 07/04/20 Sputum Culture, Resulted Pending 07/04/20 Blood Culture - Preliminary, Resulted No Growth after 48 hours. All Specime... 07/04/20 Blood Culture - Preliminary, Resulted No Growth after 48 hours. All Specime... Discharge Medications Scheduled Amlodipine Besylate (Amlodipine Besylate) 10 Mg Tablet, 10 MG PO DAILY, (Reported) Cefdinir (Cefdinir) 300 Mg Capsule, 300 MG PO BID Clonidine HCl (Clonidine HCl) 0.3 Mg Tablet, 0.3 MG PO BID, (Reported) Furosemide (Furosemide) 40 Mg Tablet, 40 MG PO DAILY Lisinopril (Lisinopril) 5 Mg Tablet, 5 MG PO DAILY, (Reported) Methadone HCl (Methadone HCl) 10 Mg/5 Ml Solution, 30 MG PO DAILY, (Reported) VERIFIED WITH CREDO Scheduled PRN Albuterol Sulf (Albuterol Sulfate) 2.5 Mg/3 Ml Vial.neb, 2.5 MG INH Q6H PRN for SOB/WHEEZING, (Reported) Albuterol Sulfate (Proair Hfa) 8.5 Gm Hfa.aer.ad, 2 PUFF INH QID PRN for SOB/WHEEZING, (Reported) Allergies Coded Allergies: No Known Allergies (Unverified , 06/19/17) ANDREW GRANT DO Jul 06, 2020 21:45
--- NOTE | 2020-07-08 11:55 | ECHO ---
DATE OF PROCEDURE: 07/05/2020 Age: 30 Gender: Male Height: 175 cm Weight: 146 kg REFERRING PHYSICIAN: Luis Antonio Le DO INDICATION: Shortness of breath. Localized edema, unspecified. Heart failure, unspecified. MEASUREMENTS: 2D Measurements: Intraventricular septum 1.15 cm Posterior wall 1.11 cm Left ventricle diastole 4.5 cm Left atrium 4.2 cm Aortic root 2.7 cm Inferior vena cava 1.7 cm Doppler Measurements: No aortic stenosis No aortic regurgitation Aortic valve velocity 155 cm/s LVOT velocity 113 cm/s LVOT VTI 17.8 cm No mitral regurgitation No mitral stenosis Mitral E velocity 83.6 cm/s Mitral A velocity 53.1 cm/s Mitral deceleration time 151 msec No tricuspid regurgitation No pulmonic regurgitation Pulmonary artery acceleration time 140 msec MITRAL ANNULAR TISSUE DOPPLER E prime septal 10.1 cm/s, E prime lateral 16.5 cm/s DESCRIPTION: Rhythm was sinus. This was a technically difficult echocardiogram. No pericardial effusion. This was a 2D, M-mode, color flow Doppler, and pulsed wave Doppler examination including mitral annular tissue Doppler. CONCLUSIONS: 1. Normal left ventricle internal dimensions and wall thickness. Normal regional LV wall motion and wall thickening. Normal LV systolic function. LVEF 60% by visual estimate. Normal LV diastolic function. 2. Normal right ventricle size and systolic function. Suggestive of normal pulmonary artery systolic pressure. 3. Mild left atrial dilatation. 4. Technically difficult echocardiogram. 5. Otherwise normal appearing echocardiogram Doppler findings. MTDD
[2020-07-08 20:08] LABS: BODY FLUID CULTURE Not indicated. (.); LEGIONELLA ANTIGEN URINE Negative (Negative); ORGANISM ID Not indicated. (.); SPECIMEN SOURCE Urine (.); URINE STREP PNEUMONIAE ANTIGEN Negative (Negative)
== END 2020-07-06 12:13 | disposition home health service (06) | DRG 139 ==
LOC: M ED 10:47 → M ED INP 17:11 → M MSPAV 21:20 → UNDODISIN 07-05 10:30
PROVIDERS: ADMIT Internal Medicine; ATTEND Internal Medicine
DX: J18.9 Pneumonia, unspecified organism (principal); I50.9 Heart failure, unspecified; E66.01 Morbid (severe) obesity due to excess calories; Z86.16 Personal history of COVID-19; I11.0 Hypertensive heart disease with heart failure; G47.33 Obstructive sleep apnea (adult) (pediatric); Z87.891 Personal history of nicotine dependence; Y95 Nosocomial condition; Z79.899 Other long term (current) drug therapy

== ENCOUNTER 2020-07-10 00:29 | Emergency (ER) | payer OTHER ==
[~2020-07-10] VITALS: Ht 182.9 cm; Wt 142.0 kg
[~2020-07-10 00:29] MED LIST changes: +ALBU83IN INH; +CEFD1CAP8 PO; +FURO40TA2 PO; -LISI-542 PO; +LISI-898 PO; +PROAAER10 INH
[2020-07-10] MEDS ORDERED: propofoL 200 MG/20 ML VIAL ONE (00:30)
--- OUTSIDE RECORDS SUMMARY | 2020-07-10 00:35 | CCD ---
Author Author [facility] Organization [facility] Address Unknown Phone Unavailable Care Team Providers Care Signal Worker Name Role Phone Amanda Ruizell Unavailable PROBLEMS Type Condition ICD9-CM Code QEN91-EH Code Onset Dates Condition S tatus SNOMED Code Notes Problem Asthma, unspecified asthma s everity, unspecified whether complicated, unspecified whether persistent J45.909 Active 31484 7001 Problem Hypertension, unspecified type I10 Active 3 [id number] Problem Cigarette nicotine dependence without complication F17.210 Active [id number] ALLERGIES No Known Allergies ENCOUNTERS from 1991 to 2020-07-04 Encounter Location Date Provider Diagnosis [address] [id number] Jun, Aliza Ruiz IMMUNIZATIONS No Information SOCIAL HISTORY Tobacco Use: Social History Observation Description Date Details (start date - stop date) Current Smoker Sex Assigned At : Social History Observation Description Sex Assigned At Unknown Education: Question Answer Notes Level of Education: GED Audit Question Answer Notes Interpretation: Alcohol Education Total Score: 0 Language: Question Answer Notes Languages spoken: Faroese Religious: Question Answer Notes Religious No faith beliefs that would impact health care. Domestic [...] Information RESULTS No Results REASON FOR VISIT SOB/fluid retention MEDICAL (GENERAL) HISTORY Type Description Date Surgical History No Surgical history information Hospitalization History [facility] Hospitalization History COVID-19 05/2020 Goals Section No [...] Insured Coverage Start Date Coverage End Date [employer] DEPT [phone] [facility] [phone] LILO MARTINEZ
--- OUTSIDE RECORDS SUMMARY | 2020-07-10 00:36 | CCD ---
Author Author [facility] Organization [facility] Address Unknown Phone Unavailable Care Team Providers Care Project Crew Worker Name Role Phone JUSTINSusan PA Unavailable Unavailable [...] is protected by Article 27-F of the [facility] Public Health law. If you continue you may have access to information: Regarding HIV / AIDS; Provided by facilities licensed or operated by the [facility] Office of Mental Health; or Provided by the [facility] Office for People With Developmental Disabilities. If such information is present, then the following [facility] mandated warning applies: This information has been [...] law may result in a fine or care home sentence or both. A general authorization for the release of medical or other information is NOT sufficient authorization for further disc losure. Allergies and Adverse Reactions Type Description Substance Reaction Status Data Source(s ) No Known Drug Allergies No Known Drug Allergies No Known Drug Aller gies [facility] Encounters Encounter Providers Location Date Indications Data Source(s ) Unknown [address] [facility] [place] [address] 07/04/2020 12:00:00 AM EST eCW1 ([facility]) Unknown [address] [facility] [place] [address] 06/25/2020 12:00:00 AM EST eCW1 ([facility]) Outpatient [address] [facility] [place] [address] 06/18/2020 12:00:00 AM EST eCW1 ([facility]) [place] [address] [facility] [address] 06/18/2020 12:00:00 AM EST eCW1 ([facility]) [place] [address] [facility] [address] 06/05/2020 12:00:00 AM EST eCW1 ([facility]) 05/30/2020 12:00:00 AM EST - 020 10:27:04 AM EST NETSMART ([facility]) Emergency Attender: DESHAUN RIOJAS 03/22 02:27:00 PM EDT - 04/12/2020 02:57:00 PM T [facility] Patient discharged. Medications Medication Brand Name Start Date Product Form Dose Route Admi nistrative Instructions Pharmacy Instructions Status Indications Reaction Description Data Source(s) 300 mg 07/06/2020 12:00:00 AM EST capsule 10 TAKE ONE CAPSULE BY MOUTH TWICE A DAY TAKE ONE CAPSULE BY MOUTH TWICE A DAY SOLD: 07/06/2020 [facility] 40 mg 07/06/2020 12:00:00 AM EST tablet 3 TAKE ONE TABLET BY MOUTH EVERY DAY TAKE ONE TABLET BY MOUTH EVERY DAY SOLD: 07/06/2020 [facility] 5 mg 06/15/2020 12:00:00 AM EST tablet [...] active Nicoderm CQ 14 MG/24 HR eCW1 ([facility]) 24 HR Nicotine 0.583 MG/HR Transdermal P atch [Nicoderm C-Q] Nicoderm CQ 14 MG/24HR Nicoderm CQ 14 MG/24HR 06/06/2020 12:00:00 AM EST 1.0 {patch_to_skin} active Nicoderm CQ 14 MG/24 HR eCW1 ([facility]) 24 HR Nicotine 0.583 MG/HR Transdermal P atch [Nicoderm C-Q] Nicoderm CQ 14 MG/24HR Nicoderm CQ 14 MG/24HR 06/06/2020 12:00:00 AM EST 1.0 {patch_to_skin} active Nicoderm CQ 14 MG/24 HR eCW1 ([facility]) 24 HR Nicotine 0.583 MG/HR Transdermal P atch [Nicoderm C-Q] Nicoderm CQ 14 MG/24HR Nicoderm CQ 14 MG/24HR 06/06/2020 12:00:00 AM EST 1.0 {patch_to_skin} active Nicoderm CQ 14 MG/24 HR eCW1 ([facility]) 24 HR Nicotine 0.583 MG/HR Transdermal P atch [Nicoderm C-Q] Nicoderm CQ 14 MG/24HR Nicoderm CQ 14 MG/24HR 06/06/2020 12:00:00 AM EST 1.0 {patch_to_skin} active Nicoderm CQ 14 MG/24 HR eCW1 ([facility]) Prednisone 20 MG Oral Tablet PredniSONE 20 MG PredniSONE 20 MG 06/05/2020 12:00:00 AM EST 2.0 {tablets} suspended PredniSONE 20 MG eCW1 ([facility]) Prednisone 20 MG Oral Tablet PredniSONE 20 MG PredniSONE 20 MG 06/05/2020 12:00:00 AM EST 2.0 {tablets} suspended PredniSONE 20 MG eCW1 ([facility]) Albuterol 0.83 MG/ML Inhalant Solution Albuterol Sulfa te (2.5 MG/3ML) 0.083% Albuterol Sulfate (2.5 MG/3ML) 0.083% 06/05/2020 12:00:00 AM EST 3.0 {ml_as_needed} active Albuterol Sulfate (2.5 MG/3ML) 0.083% eCW1 ([facility]) Methadone Hydrochloride 2 MG/ML Oral Solution Methadon e HCl 10 MG/5ML Methadone HCl 10 MG/5ML 06/05/2020 12:00:00 AM EST 20.0 {ml} a ctive Methadone HCl 10 MG/5ML eCW1 ([facility]) Albuterol Sulfate HFA 108 (90 Base) MCG/ACT Albuterol Sulfate HFA 108 (90 Base) MCG/ACT 06/05/2020 12:00:00 AM EST 1.0 {puff_as_needed} active Albuterol Sulfate HFA 108 (90 Base) MCG/ACT eCW1 ([facility]) Albuterol 0.83 MG/ML Inhalant Solution Albuterol Sulfa te (2.5 MG/3ML) 0.083% Albuterol Sulfate (2.5 MG/3ML) 0.083% 06/05/2020 12:00:00 AM EST 3.0 {ml_as_needed} active Albuterol Sulfate (2.5 MG/3ML) 0.083% eCW1 ([facility]) Methadone Hydrochloride 2 MG/ML Oral Solution Methadon e HCl 10 MG/5ML Methadone HCl 10 MG/5ML 06/05/2020 12:00:00 AM EST 20.0 {ml} a ctive Methadone HCl 10 MG/5ML eCW1 ([facility]) Prednisone 20 MG Oral Tablet PredniSONE 20 MG PredniSONE 20 MG 06/05/2020 12:00:00 AM EST 2.0 {tablets} suspended PredniSONE 20 MG eCW1 ([facility]) Albuterol 0.83 MG/ML Inhalant Solution Albuterol Sulfa te (2.5 MG/3ML) 0.083% Albuterol Sulfate (2.5 MG/3ML) 0.083% 06/05/2020 12:00:00 AM EST 3.0 {ml_as_needed} active Albuterol Sulfate (2.5 MG/3ML) 0.083% eCW1 ([facility]) Methadone Hydrochloride 2 MG/ML Oral Solution Methadon e HCl 10 MG/5ML Methadone HCl 10 MG/5ML 06/05/2020 12:00:00 AM EST 20.0 {ml} a ctive Methadone HCl 10 MG/5ML eCW1 ([facility]) Albuterol Sulfate HFA 108 (90 Base) MCG/ACT Albuterol Sulfate HFA 108 (90 Base) MCG/ACT 06/05/2020 12:00:00 AM EST 1.0 {puff_as_needed} active Albuterol Sulfate HFA 108 (90 Base) MCG/ACT eCW1 ([facility]) Prednisone 20 MG Oral Tablet PredniSONE 20 MG PredniSONE 20 MG 06/05/2020 12:00:00 AM EST 2.0 {tablets} suspended PredniSONE 20 MG eCW1 ([facility]) Albuterol Sulfate HFA 108 (90 Base) MCG/ACT Albuterol Sulfate HFA 108 (90 Base) MCG/ACT 06/05/2020 12:00:00 AM EST 1.0 {puff_as_needed} active Albuterol Sulfate HFA 108 (90 Base) MCG/ACT eCW1 ([facility]) Prednisone 20 MG Oral Tablet PredniSONE 20 MG PredniSONE 20 MG 06/05/2020 12:00:00 AM EST 2.0 {tablets} active P redniSONE 20 MG eCW1 ([facility]) Albuterol Sulfate HFA 108 (90 Base) MCG/ACT Albuterol Sulfate HFA 108 (90 Base) MCG/ACT 06/05/2020 12:00:00 AM EST 1.0 {puff_as_needed} active Albuterol Sulfate HFA 108 (90 Base) MCG/ACT eCW1 ([facility]) Albuterol Sulfate HFA 108 (90 Base) MCG/ACT Albuterol Sulfate HFA 108 (90 Base) MCG/ACT 06/05/2020 12:00:00 AM EST 1.0 {puff_as_needed} active Albuterol Sulfate HFA 108 (90 Base) MCG/ACT eCW1 ([facility]) Albuterol 0.83 MG/ML Inhalant Solution Albuterol Sulfa te (2.5 MG/3ML) 0.083% Albuterol Sulfate (2.5 MG/3ML) 0.083% 06/05/2020 12:00:00 AM EST 3.0 {ml_as_needed} active Albuterol Sulfate (2.5 MG/3ML) 0.083% eCW1 ([facility]) Albuterol 0.83 MG/ML Inhalant Solution Albuterol Sulfa te (2.5 MG/3ML) 0.083% Albuterol Sulfate (2.5 MG/3ML) 0.083% 06/05/2020 12:00:00 AM EST 3.0 {ml_as_needed} active Albuterol Sulfate (2.5 MG/3ML) 0.083% eCW1 ([facility]) Methadone Hydrochloride 2 MG/ML Oral Solution Methadon e HCl 10 MG/5ML Methadone HCl 10 MG/5ML 06/05/2020 12:00:00 AM EST 20.0 {ml} a ctive Methadone HCl 10 MG/5ML eCW1 ([facility]) Methadone Hydrochloride 2 MG/ML Oral Solution Methadon e HCl 10 MG/5ML Methadone HCl 10 MG/5ML 06/05/2020 12:00:00 AM EST 20.0 {ml} a ctive Methadone HCl 10 MG/5ML eCW1 ([facility]) Methadone HCl 10 MG Methadone HCl 05/30/2020 12:00:00 AM EST completed NETSMART ([facility]) AmLODIPine Besylate 5 MG AmLODIPine Besylate 05/30/2020 12:00:00 AM EST completed NETSMART ([facility]) Metoprolol Tartrate 25 MG Metoprolol Tartrate 05/30/2020 12:00:[address] completed NETSMART ([facility]) CloNIDine HCl 0.3 MG CloNIDine HCl 05/30/2020 12:00:00 AM EST completed NETSMART ([facility]) Insurance Providers Payer name Policy type / Coverage type Policy ID Covered republican ID Covered republican's relationship to mckeon Policy Mckeon Plan Information ALONSO [id number] SP [id number] [place] [id number] S [id number] [employer] MEDICAID [id number] S [id number] SELF PAY [id number] S [id number] SELF PAY [id number] S [id number] PROGRESSIVE CO NO FAULT [id number] SP [id number] SELF PAY HEA S SELF PAY HEA S SELF PAY ONLY [id number] SP [id number] [id number] MO2 [id number] [employer] PPO O [id number] S [id number] SELF PAY UNAVAILABLE SP [facility] [id number] MO2 [id number] Problems, Conditions, and Diagnoses Code Display Name Description Problem Type Effective Dates Data Source(s) I10 [id number] Hypertension, unspecified type Problem 06/18 12:00:00 AM EST eCW1 ([facility]) F17.210 [id number] Cigarette nicotine dependence without com plication Problem 06/06/2020 12:00:00 AM EST eCW1 ([facility]) J45.909 [id number] Asthma, unspecified asthma severity, unspecified whether complicated, unspecified whether persistent Problem 06/05/2020 12:00 :00 AM EST eCW1 ([facility]) J18.9 Pneumonia, unspecified organism Pneumonia, unspecified organism Problem 05/26/2020 12:00:00 AM EST NETSMART ([facility] ) B95.61 Methicillin susceptible Stap hylococcus aureus infection as the cause of diseases classified elsewhere Methicillin susceptible Staphylococcus a ureus infection as the cause of diseases classified elsewhere Problem 05/01/2020 12:00:00 AM EST NETSMART ([facility] ) B96.3 Hemophilus influenzae [H. in fluenzae] as the cause of diseases classified elsewhere Hemophilus influenzae [H. influenzae] as the cause of diseases classified elsewhere Problem 05/01/2020 12:00:00 AM EST [facility]SMART [facility]) B96.89 Other specified bacterial ag ents as the cause of diseases classified elsewhere Other specified bacterial agents as the cause of diseases classified elsewhere Problem 05/01/2020 12:00:00 AM EST NETSMART ([facility]) M62.82 Rhabdomyolysis Rhabdomyolysis Problem 05/01/2020 12:00: 00 AM EST NETSMART ([facility]) J96.01 Acute respiratory failure with hypoxia A cute respiratory failure with hypoxia Problem 05/01/2020 12:00:00 AM EST NETSMART ([facility]) T40.1X1S Poisoning by heroin, accidental (uninten tional), sequela Poisoning by heroin, accidental (unintentional), sequela Problem 05/01/2020 12:00 :00 AM EST NETSMART ([facility]) G47.30 Sleep apnea, unspecified Sleep apnea, unspecified Prob jatinder 05/01/2020 12:00:00 AM EST NETSMART ([facility] ) E66.01 Morbid (severe) obesity due to excess ca lories Morbid (severe) obesity due to excess calories Problem 05/01/2020 12:00:00 AM EST NETSMART ( [facility]) F11.10 Opioid abuse, uncomplicated Opioid abuse, uncomplicate d Problem 05/01/2020 12:00:00 AM EST NETSMART ([facility] ) F12.10 Cannabis abuse, uncomplicated Cannabis abuse, uncompli cated Problem 05/01/2020 12:00:00 AM EST NETSMART ([facility] ) F14.10 Cocaine abuse, uncomplicated Cocaine abuse, uncomplica jaylan Problem 05/01/2020 12:00:00 AM EST NETSMART ([facility] ) F13.10 Sedative, hypnotic or anxiolytic abuse, uncomplicated Sedative, hypnotic or anxiolytic abuse, uncomplicated Problem 05/01/2020 12:00:00 AM ES T NETSMART ([facility]) Z91.81 History of falling History of falling Problem 0 12:00:00 AM EST NETSMART ([facility]) Z68.41 Body mass index [BMI]40.0-44.9, adult N[place] dy mass index [BMI]40.0-44.9, adult Problem 05/01/2020 12:00:00 AM EST NETSMART ([facility]) 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 O THER HALF-WAY (CURRENT) DRUG THERAPY Diagnosis 04/12/2020 02:27:00 PM EDT [facility] F17.210 Nicotine dependence, cigarettes, uncompl icated NICOTINE DEPENDENCE, CIGARETTES, UNCOMPLICATED Diagnosis 04/12/2020 02:27:00 PM EDT [facility] F19.10 Other psychoactive substance abuse, unco mplicated OTHER PSYCHOACTIVE SUBSTANCE ABUSE, UNCOMPLICATED Diagnosis 04/12/2020 02:27:00 PM EDT [facility] K52.9 Noninfective gastroenteritis and colitis , unspecified NONINFECTIVE GASTROENTERITIS AND COLITIS, UNSPECIF Diagnosis 04/12/2020 02:27:00 PM [facility] R10.84 Generalized abdominal pain GENERALIZED ABDOMINAL PAIN Diagnosis 04/12/2020 02:27:00 PM [facility] Results ID Date Data Source [id number] 06/08/2020 07:29:00 AM EST [facility] Name Value Range Interpretation Code Description Data Juany rce(s) Supporting Document(s) Respiratory pathogens identified [Type] in Nasopharynx by Probe and target amplification method [facility] This lab was ordered by [facility] a nd reported by [facility]. ID Date Data Source [id number] 04/14/2020 06:09:00 AM [facility] Patient: LIOL MARTINEZ Observation Report - [facility].VisitID: [id number] [place] [address] [phone], MRegistration Date/Time: 04/12/2020 13:00 Weight:149.6 kg (S). [...] Current Smoker completed Curre nt Smoker eCW1 ([facility]) Smoking 06/18/2020 12:00:00 AM EST Current Smoker completed Curre nt Smoker eCW1 ([facility]) Smoking 06/18/2020 12:00:00 AM EST Current Smoker completed Curre nt Smoker eCW1 ([facility]) Smoking 06/18/2020 12:00:00 AM EST Current Smoker completed Curre nt Smoker eCW1 ([facility]) Smoking 06/05/2020 12:00:00 AM EST Current Smoker completed Curre nt Smoker eCW1 ([facility]) Vital Signs ID Date Data Source UNK Name Value Range Interpretation Code Description Data Source(s) Diastolic blood pressure 67 mm[Hg] 67 mm[Hg] eCW1 ([facility]) Systolic blood pressure 138 mm[Hg] 138 mm[Hg] e CW1 ([facility]) Body temperature 97.8 [degF] 97.8 [degF] eCW1 ( [facility]) Respiratory rate 16 /min 16 /min eCW1 ([facility]) Heart rate 77 /min 77 /min eCW1 ([facility]) Body mass index (BMI) [Ratio] 47.84 kg/m2 47.84 kg/m2 W1 ([facility]) Body height 69 [in_i] 69 [in_i] eCW1 ([facility]) Body weight 324 [lb_av] 324 [lb_av] eCW1 ([facility]) Diastolic blood pressure 59 mm[Hg] 59 mm[Hg] eCW1 ([facility]) Systolic blood pressure 111 mm[Hg] 111 mm[Hg] e CW1 ([facility]) Body temperature 96.9 [degF] 96.9 [degF] eCW1 ( [facility]) Respiratory rate 17 /min 17 /min eCW1 ([facility]) Heart rate 81 /min 81 /min eCW1 ([facility]) Body mass index (BMI) [Ratio] 47.84 kg/m2 47.84 kg/m2 eCW1 ([facility]) Body height 69 [in_i] 69 [in_i] eCW1 ([facility]) Body weight 324 [lb_av] 324 [lb_av] eCW1 ([facility]) Patient Treatment Plan of Care Planned Activity Planned Date Details Description Data Source (s) 24 HR Nicotine 0.583 MG/HR Transdermal Patch [Nicoderm C-Q] 06/06/2020 12:00:00 AM EST eCW1 ([facility]) Albuterol Sulfate HFA 108 (90 Base) MCG/ACT 06/05/2020 12:00:00 AM EST eCW1 ([facility]) Albuterol Sulfate HFA 108 (90 Base) MCG/ACT 06/05/2020 12:00:00 AM EST eCW1 ([facility]) Albuterol Sulfate HFA 108 (90 Base) MCG/ACT 06/05/2020 12:00:00 AM EST eCW1 ([facility]) Albuterol Sulfate HFA 108 (90 Base) MCG/ACT 06/05/2020 12:00:00 AM EST eCW1 ([facility]) Prednisone 20 MG Oral Tablet 06/05/2020 12:00:00 AM EST eCW1 ([facility]) Albuterol Sulfate HFA 108 (90 Base) MCG/ACT 06/05/2020 12:00:00 AM EST eCW1 ([facility]) Albuterol 0.83 MG/ML Inhalant Solution 06/05/2020 12:00:00 AM EST eCW1 ([facility]) CloNIDine HCl 0.3 MG 05/30/2020 12:00:00 AM EST NETSMART ([facility]) Metoprolol Tartrate 25 MG 05/30/2020 12:00:00 AM EST NETSMART ([facility]) AmLODIPine Besylate 5 MG 05/30/2020 12:00:00 AM EST NETSMART ([facility]) Methadone HCl 10 MG 05/30/2020 12:00:00 AM EST NETSMART ([facility])
[2020-07-10] MEDS ORDERED: propofoL 1,000 MG in IV 1 EA IV SCH ×2 (01:05→09:30)
[2020-07-10] MEDS ORDERED: PROPOFOL 1,000 MG/100 ML VIAL As Ordered ONE (01:06)
[2020-07-10] MEDS ORDERED: ETOMIDATE INJ 20MG/10ML VIAL IV ONE (01:15)
[2020-07-10] MEDS ORDERED: ROCURONIUM BROMIDE 50 MG/5 ML VIAL IV ONE (01:15)
[2020-07-10] MEDS ORDERED: ISOVUE-370 76% 100ML VIAL As Ordered ONE (01:36)
[2020-07-10] MEDS ORDERED: MIDAZOLAM HCL 50 MG in D5W 40 ML IV SCH (01:45)
[2020-07-10] MEDS ORDERED: MIDAZOLAM INJ 2MG/2ML VIAL (J2250 PER 1MG) IV STA ×3 (01:49→04:10)
[2020-07-10] MEDS ORDERED: MIDAZOLAM 5MG/ML 1ML VIAL (J2250 PER 1MG) As Ordered ONE ×2 (01:50→06:17)
[2020-07-10] MEDS ORDERED: MIDAZOLAM HCL 100 MG in D5W 80 ML IV SCH (02:00)
[2020-07-10 02:16] LABS: BASO # 0.1 10^3/uL (0.0-0.2); BASO % 0.3 % (0.0-1.0); EOS # 0.1 10^3/uL (0.0-0.5); EOS % 0.8 % (0.0-3.0); HEMATOCRIT 36.2 % (42.0-52.0); HEMOGLOBIN 11.5 g/dl (13.5-17.5); LYMPH # 0.8 10^3/uL (1.5-5.0); LYMPH % 5.4 % (24.0-44.0); MEAN CORPUSCULAR HEMOGLOBIN 29.3 pg (27.0-33.0); MEAN CORPUSCULAR HGB CONC 31.8 g/dl (32.0-36.5); MEAN CORPUSCULAR VOLUME 92.1 fl (80.0-96.0); MONO # 0.8 10^3/uL (0.0-0.8); MONO % 5.4 % (0.0-5.0); NEUTROPHILS # 12.5 10^3/uL (1.5-8.5); NEUTROPHILS % 86.9 % (36.0-66.0); PLATELET COUNT, AUTOMATED 388 10^3/uL (150-450); RED BLOOD COUNT 3.93 10^6/uL (4.30-6.10); WHITE BLOOD COUNT 14.4 10^3/uL (4.0-10.0)
--- NOTE | 2020-07-10 02:31 | REPVR ---
PROCEDURE INFORMATION: Exam: XR Chest, 1 View Exam date and time: 07/10/2020 1:23 AM Age: 30 years old Clinical indication: Cough and dyspnea; Additional info: Dyspnea/cough TECHNIQUE: Imaging protocol: XR of the chest Views: 1 view. COMPARISON: CR PORTABLE CHEST X-RAY 07/04/2020 12:24 PM FINDINGS: Tubes, catheters and devices: Interval placement of an ET tube which is above the clavicular heads and approximately 8 cm above the sid. NG tube extending into the gastric fundus. Lungs: New bilateral perihilar and infrahilar infiltrates since the prior study. Pleural space: Unremarkable. No pleural effusion. No pneumothorax. Heart/Mediastinum: The heart and mediastinum are unchanged. Bones/joints: Unremarkable. IMPRESSION: 1. ET tube with the tip above the clavicular heads, approximately 8 cm above the sid which is new since 07/04/2020. 2. NG tube extending into the gastric fundus. 3. New bilateral perihilar and infrahilar infiltrates. Electronically signed by: Brandyn Mims On 07/10/2020 02:30:19 AM
[2020-07-10 02:48] LABS: ALBUMIN 2.9 GM/DL (3.2-5.2); ALT/SGPT 20 U/L (12-78); BILIRUBIN,DIRECT 0.1 MG/DL (0.0-0.2); BILIRUBIN,TOTAL 0.3 MG/DL (0.2-1.0); BLOOD UREA NITROGEN 14 MG/DL (7-18); CALCIUM LEVEL 8.7 MG/DL (8.5-10.1); CARBON DIOXIDE LEVEL 30 MEQ/L (21-32); CHLORIDE LEVEL 103 MEQ/L (98-107); CK-MB VALUE MASS 4.3 NG/ML (<3.6); CPK CREATINE PHOSPHOKINASE 365 U/L (39-308); CREATININE FOR GFR 0.84 MG/DL (0.70-1.30); GLOMERULAR FILTRATION RATE > 60.0 (>60); GLUCOSE, FASTING 117 MG/DL (70-100); MB/CK RELATIVE INDEX 1.18 (< OR =4); POTASSIUM SERUM 4.9 MEQ/L (3.5-5.1); SODIUM LEVEL 145 MEQ/L (136-145); TOTAL PROTEIN 5.9 GM/DL (6.4-8.2); TROPONIN I 0.07 NG/ML (< 0.10)
[2020-07-10 03:58] LABS: ACETAMINOPHEN LEVEL < 2.0 UG/ML (10.0-30.0); SALICYLATE LEVEL < 1.7 MG/DL (5.0-30.0)
[2020-07-10 03:59] LABS: ETHYL ALCOHOL (ETHANOL) < 0.003 % (0.000-0.010)
--- NOTE | 2020-07-10 04:48 | REPVR ---
PROCEDURE INFORMATION: Exam: CT Neck With Contrast Exam date and time: 07/10/2020 1:11 AM Age: 30 years old Clinical indication: Other: Stenotic airway; Additional info: Severe SOB, resp arrest, stenotic airway TECHNIQUE: Imaging protocol: Computed tomography images of the neck with intravenous contrast. Radiation optimization: All CT scans at this facility use at least one of these dose optimization techniques: automated exposure control; mA and/or kV adjustment per patient size (includes targeted exams where dose is matched to clinical indication); or iterative reconstruction. Contrast material: ISO; Contrast volume: 100 ml; Contrast route: INTRAVENOUS (IV); COMPARISON: CT Neck with contrast 06/02/2020 5:11 PM FINDINGS: Paranasal sinuses: Ethmoid, sphenoid and bilateral maxillary sinus mucosal thickening. Nasopharynx: Fluid and debris in the nasopharynx. Oropharynx: Unremarkable. No significant tonsillar enlargement. Hypopharynx: Unremarkable. Larynx: Unremarkable. Normal epiglottis. Retropharyngeal space: Unremarkable. Submandibular/Parotid glands: Normal. Glands are normal in size. Thyroid: Normal. No enlarged or calcified nodules. Lymph nodes: Unremarkable. No lymphadenopathy. Trachea: The ET tube extends through visualized trachea. The trachea below the thyroid glands is not seen. Lungs: Unremarkable as visualized. Bones/joints: Unremarkable. No acute fracture. Soft tissues: OG tube and ET tube in position. The ET tube just crosses the level of the tracheal narrowing noted on the prior scan. IMPRESSION: 1. OG tube and ET tube in position with the ET tube just crossing the level of tracheal narrowing seen on the prior scan of 06/02/2020. 2. Ethmoid, sphenoid and bilateral maxillary sinus disease. Electronically signed by: Brandyn Mims On 07/10/2020 04:48:01 AM
--- NOTE | 2020-07-10 04:52 | REPVR ---
PROCEDURE INFORMATION: Exam: CT Chest With Contrast; Diagnostic Exam date and time: 07/10/2020 1:11 AM Age: 30 years old Clinical indication: Shortness of breath; Additional info: Severe SOB, resp arrest, stenotic airway TECHNIQUE: Imaging protocol: Diagnostic computed tomography of the chest with intravenous contrast. Radiation optimization: All CT scans at this facility use at least one of these dose optimization techniques: automated exposure control; mA and/or kV adjustment per patient size (includes targeted exams where dose is matched to clinical indication); or iterative reconstruction. Contrast material: ISO; Contrast volume: 100 ml; Contrast route: INTRAVENOUS (IV); COMPARISON: CT ANGIO CHEST 07/04/2020 2:40 PM FINDINGS: Tubes, catheters and devices: NG tube extending into the stomach. ET tube in position extending just through an area of tracheal narrowing noted on a prior scan. Lungs: Complete bilateral lower lobe atelectasis or consolidation. Minimal scattered infiltrates are noted in the remaining lungs with slight interstitial coarsening. Pleural space: Unremarkable. No pneumothorax. No pleural effusion. Heart: Unremarkable. No cardiomegaly. No pericardial effusion. Mediastinal space: There is soft tissue conforming to the anterior mediastinum consistent with residual thymic tissue. Aorta: Unremarkable. No aortic aneurysm. Lymph nodes: Unremarkable. No enlarged lymph nodes. Bones/joints: Mild anterior wedge configuration of T11 and slight anterior wedge configuration of T10 and T12. Soft tissues: Unremarkable. IMPRESSION: 1. ET tube in position with the tip extending just beyond the level of tracheal narrowing noted on a prior scan. 2. NG tube extending into the stomach. 3. Complete atelectasis or consolidation involving the lower lobes. There are minimal scattered pulmonary infiltrates with slight interstitial coarsening in the remaining aerated lungs. 4. Mild anterior wedge configuration of T11 and slight anterior wedge configuration of T10 and T12 which appear to be chronic. Electronically signed by: Brandyn Mims On 07/10/2020 04:52:24 AM
[2020-07-10] MEDS ORDERED: VANCOMYCIN HCL 2,000 MG in D5W 500 ML IV ONE (05:15)
[2020-07-10] MEDS ORDERED: PIPERACILLIN/TAZOBACTAM SOD 3.375 GM in D5W MINI-BAG PLUS 50 ML IV ONE (05:15)
[2020-07-10 05:41] LABS: AMPHETAMINES LEVEL URINE NEGATIVE (NEGATIVE); BARBITURATES URINE NEGATIVE (NEGATIVE); BENZODIAZEPINES URINE POSITIVE (NEGATIVE); CANNABINOIDS URINE NEGATIVE (NEGATIVE); COCAINE METABOLITE URINE NEGATIVE (NEGATIVE); METHADONE URINE POSITIVE (NEGATIVE); OPIATES URINE NEGATIVE (NEGATIVE); PHENCYCLIDINE URINE NEGATIVE (NEGATIVE)
[2020-07-10] MEDS ORDERED: VANCOMYCIN HCL 1,000 MG, VIAL MATE ADAPTER 1 EACH in D5W 250 ML IV ONE ×2 (06:00→07:00)
--- NOTE | 2020-07-10 07:11 | REPVR ---
PROCEDURE INFORMATION: Exam: XR Chest, 1 View Exam date and time: 07/10/2020 6:50 AM Age: 30 years old Clinical indication: Device placement; Ett placement (vent status); Additional info: Tube advancement TECHNIQUE: Imaging protocol: XR of the chest Views: 1 view. COMPARISON: CT Chest with contrast 07/10/2020 4:19 AM FINDINGS: Tubes, catheters and devices: Endotracheal and feeding tubes. The endotracheal tube terminates 3.0 cm above the sid. Lungs: Basilar airspace/pleural disease, which was better visualized on CT. Heart/Mediastinum: Cardiac silhouette upper limits of normal in size. Bones/joints: Anterior wedging of the T11 vertebral body, which was better visualized on CT. IMPRESSION: 1. Endotracheal and feeding tubes. The endotracheal tube terminates 3.0 cm above the sid. 2. Incompletely visualized basilar airspace /pleural disease. Electronically signed by: Alvaro Marin On 07/10/2020 07:10:58 AM
--- OUTSIDE RECORDS SUMMARY | 2020-07-10 07:38 | CCD ---
Author Author [facility] Organization [facility] Address Unknown Phone Unavailable Care Team Providers Care Jewelry Racker Name Role Phone JUSTINSusan PA Unavailable Unavailable [...] Unavailable JUSTIN, L DESHAUN PA Unavailable Unavailable SYSTEM IN, NOT IN PROVIDER Unavailable Unavailable Re-disclosure Warning The records that [...] is protected by Article 27-F of the [facility] Public Health law. If you continue you may have access to information: Regarding HIV / AIDS; Provided by facilities licensed or operated by the [facility] Office of Mental Health; or Provided by the [facility] Office for People With Developmental Disabilities. If such information is present, then the following [facility] mandated warning applies: This information has [...] law may result in a fine or mcfp sentence or both. A general authorization for the release of medical or other information is NOT sufficient authorization for further disc losure. Allergies and Adverse Reactions Type Description Substance Reaction Status Data Source(s ) No Known Drug Allergies No Known Drug Allergies No Known Drug Aller gies active NETSMART ([facility] ) Encounters Encounter Providers Location Date Indications Data Source(s ) Outpatient Referrer: PROVIDER SYSTEM IN 07/10/2020 0 5:33:00 AM EST subglottic stenosis [facility] subglottic stenosis [place] [address] [address] 07/04/2020 12:00:00 AM EST eCW1 ([facility]) [place] [address] [address] 06/25/2020 12:00:00 AM EST eCW1 ([facility]) [place] [address] [address] 06/18/2020 12:00:00 AM EST eCW1 ([facility]) [place] [address] [address] 06/18/2020 12:00:00 AM EST eCW1 ([facility]) [place] [address] [address] 06/05/2020 12:00:00 AM EST eCW1 ([facility]) 05/30/2020 12:00:00 AM EST - 020 10:27:04 AM EST [facility]T ([facility]) Emergency Attender: DESHAUN RIOJAS 03/22 02:27:00 PM EDT - 04/12/2020 02:57:00 PM [facility] Patient discharged. Medications Medication Brand [...] TABLET BY MOUTH EVERY DAY SOLD: 06/17/2020 [facility] 10 mg 06/15/2020 12:00:00 AM EST tablet 30 TAKE ONE TABLET BY MOUTH EVERY DAY TAKE ONE TABLET BY MOUTH EVERY DAY SOLD: 06/17/2020 [facility] 24 HR Nicotine 0.583 MG/HR Transdermal P atch [Nicoderm C-Q] Nicoderm CQ 14 MG/24HR Nicoderm CQ 14 MG/24HR 06/06/2020 12:00:00 AM EST 1.0 {patch_to_skin} active Nicoderm CQ 14 MG/24 HR eCW1 ([facility]) 24 HR Nicotine 0.583 MG/HR Transdermal P atch [Nicoderm C-Q] Nicoderm CQ 14 MG/24HR Nicoderm CQ 14 MG/24HR 06/06/2020 12:00:00 AM EST 1.0 {patch_to_skin} active Nicoderm CQ 14 MG/24 HR eCW1 ([facility]) 24 HR Nicotine 0.583 MG/HR Transdermal P atch [Nicoderm C-Q] Nicoderm CQ 14 MG/24HR Nicoderm CQ 14 MG/24HR 06/06/2020 12:00:00 AM EST 1.0 {patch_to_skin} active Nicoderm CQ 14 MG/24 HR eCW1 ([facility]) 24 HR Nicotine 0.583 MG/HR Transdermal P atch [Nicoderm C-Q] Nicoderm CQ 14 MG/24HR Nicoderm CQ 14 MG/24HR 06/06/2020 12:00:00 AM EST 1.0 {patch_to_skin} active Nicoderm CQ 14 MG/24 HR eCW1 ([facility]) 24 HR Nicotine 0.583 MG/HR Transdermal P atch [Nicoderm C-Q] Nicoderm CQ 14 MG/24HR Nicoderm CQ 14 MG/24HR 06/06/2020 12:00:00 AM EST 1.0 {patch_to_skin} active Nicoderm CQ 14 MG/24 HR eCW1 ([facility]) Prednisone 20 MG Oral Tablet PredniSONE 20 MG PredniSONE 20 MG 06/05/2020 12:00:00 AM EST 2.0 {tablets} suspended PredniSONE 20 MG eCW1 ([facility]) Prednisone 20 MG Oral Tablet PredniSONE 20 MG PredniSONE 20 MG 06/05/2020 12:00:00 AM EST 2.0 {tablets} suspended PredniSONE 20 MG eCW1 ([facility]) Albuterol 0.83 MG/ML Inhalant Solution Albuterol Sulfa te (2.5 MG/3ML) 0.083% Albuterol Sulfate (2.5 MG/3ML) 0.083% 06/05/2020 12:00:00 AM EST 3.0 {ml_as_needed} active Albuterol Sulfate (2.5 MG/3ML) 0.083% eCW1 ([facility]) Methadone Hydrochloride 2 MG/ML Oral Solution Methadon e HCl 10 MG/5ML Methadone HCl 10 MG/5ML 06/05/2020 12:00:00 AM EST 20.0 {ml} a ctive Methadone HCl 10 MG/5ML eCW1 ([facility]) Albuterol Sulfate HFA 108 (90 Base) MCG/ACT Albuterol Sulfate HFA 108 (90 Base) MCG/ACT 06/05/2020 12:00:00 AM EST 1.0 {puff_as_needed} active Albuterol Sulfate HFA 108 (90 Base) MCG/ACT eCW1 ([facility]) Albuterol 0.83 MG/ML Inhalant Solution Albuterol Sulfa te (2.5 MG/3ML) 0.083% Albuterol Sulfate (2.5 MG/3ML) 0.083% 06/05/2020 12:00:00 AM EST 3.0 {ml_as_needed} active Albuterol Sulfate (2.5 MG/3ML) 0.083% eCW1 ([facility]) Methadone Hydrochloride 2 MG/ML Oral Solution Methadon e HCl 10 MG/5ML Methadone HCl 10 MG/5ML 06/05/2020 12:00:00 AM EST 20.0 {ml} a ctive Methadone HCl 10 MG/5ML eCW1 ([facility]) Prednisone 20 MG Oral Tablet PredniSONE 20 MG PredniSONE 20 MG 06/05/2020 12:00:00 AM EST 2.0 {tablets} suspended PredniSONE 20 MG eCW1 ([facility]) Albuterol 0.83 MG/ML Inhalant Solution Albuterol Sulfa te (2.5 MG/3ML) 0.083% Albuterol Sulfate (2.5 MG/3ML) 0.083% 06/05/2020 12:00:00 AM EST 3.0 {ml_as_needed} active Albuterol Sulfate (2.5 MG/3ML) 0.083% eCW1 ([facility]) Methadone Hydrochloride 2 MG/ML Oral Solution Methadon e HCl 10 MG/5ML Methadone HCl 10 MG/5ML 06/05/2020 12:00:00 AM EST 20.0 {ml} a ctive Methadone HCl 10 MG/5ML eCW1 ([facility]) Albuterol Sulfate HFA 108 (90 Base) MCG/ACT Albuterol Sulfate HFA 108 (90 Base) MCG/ACT 06/05/2020 12:00:00 AM EST 1.0 {puff_as_needed} active Albuterol Sulfate HFA 108 (90 Base) MCG/ACT eCW1 ([facility]) Prednisone 20 MG Oral Tablet PredniSONE 20 MG PredniSONE 20 MG 06/05/2020 12:00:00 AM EST 2.0 {tablets} suspended PredniSONE 20 MG eCW1 ([facility]) Albuterol Sulfate HFA 108 (90 Base) MCG/ACT Albuterol Sulfate HFA 108 (90 Base) MCG/ACT 06/05/2020 12:00:00 AM EST 1.0 {puff_as_needed} active Albuterol Sulfate HFA 108 (90 Base) MCG/ACT eCW1 ([facility]) Prednisone 20 MG Oral Tablet PredniSONE 20 MG PredniSONE 20 MG 06/05/2020 12:00:00 AM EST 2.0 {tablets} active P redniSONE 20 MG eCW1 ([facility]) Albuterol Sulfate HFA 108 (90 Base) MCG/ACT Albuterol Sulfate HFA 108 (90 Base) MCG/ACT 06/05/2020 12:00:00 AM EST 1.0 {puff_as_needed} active Albuterol Sulfate HFA 108 (90 Base) MCG/ACT eCW1 ([facility]) Albuterol Sulfate HFA 108 (90 Base) MCG/ACT Albuterol Sulfate HFA 108 (90 Base) MCG/ACT 06/05/2020 12:00:00 AM EST 1.0 {puff_as_needed} active Albuterol Sulfate HFA 108 (90 Base) MCG/ACT eCW1 ([facility]) Albuterol 0.83 MG/ML Inhalant Solution Albuterol Sulfa te (2.5 MG/3ML) 0.083% Albuterol Sulfate (2.5 MG/3ML) 0.083% 06/05/2020 12:00:00 AM EST 3.0 {ml_as_needed} active Albuterol Sulfate (2.5 MG/3ML) 0.083% eCW1 ([facility]) Albuterol 0.83 MG/ML Inhalant Solution Albuterol Sulfa te (2.5 MG/3ML) 0.083% Albuterol Sulfate (2.5 MG/3ML) 0.083% 06/05/2020 12:00:00 AM EST 3.0 {ml_as_needed} active Albuterol Sulfate (2.5 MG/3ML) 0.083% eCW1 ([facility]) Methadone Hydrochloride 2 MG/ML Oral Solution Methadon e HCl 10 MG/5ML Methadone HCl 10 MG/5ML 06/05/2020 12:00:00 AM EST 20.0 {ml} a ctive Methadone HCl 10 MG/5ML eCW1 ([facility]) Methadone Hydrochloride 2 MG/ML Oral Solution Methadon e HCl 10 MG/5ML Methadone HCl 10 MG/5ML 06/05/2020 12:00:00 AM EST 20.0 {ml} a ctive Methadone HCl 10 MG/5ML eCW1 ([facility]) Methadone HCl 10 MG Methadone HCl 05/30/2020 12:00:00 AM EST completed NETSMART ([facility]) AmLODIPine Besylate 5 MG AmLODIPine Besylate 05/30/2020 12:00:00 AM EST completed NETSMART ([facility]) Metoprolol Tartrate 25 MG Metoprolol Tartrate 05/30/2020 12:00:[address] completed NETSMART ([facility]) CloNIDine HCl 0.3 MG CloNIDine HCl 05/30/2020 12:00:00 AM EST completed NETSMART ([facility]) Insurance Providers Payer name Policy type / Coverage type Policy ID Covered constitution party ID Covered constitution party's relationship to mckeon Policy Mckeon Plan Information ALONSO [id number] SP [id number] [place] [id number] S [id number] [employer] MEDICAID [id number] S [id number] SELF PAY [id number] S [id number] SELF PAY [id number] S [id number] [employer] NO FAULT [id number] SP [id number] SELF PAY HEA S SELF PAY HEA S SELF PAY ONLY [id number] SP [id number] POMCO [id number] MO2 [id number] [employer]OM[employer] PPO O [id number] S [id number] SELF PAY UNAVAILABLE SP [employer]NAVA[employer]A [employer] [id number] MO2 [id number] Problems, Conditions, and Diagnoses Code Display Name Description Problem Type Effective Dates Data Source(s) I10 [id number] Hypertension, unspecified type Problem 06/18 12:00:00 AM EST eCW1 ([facility]) F17.210 [id number] Cigarette nicotine dependence without com plication Problem 06/06/2020 12:00:00 AM EST eCW1 ([facility]) J45.909 [id number] Asthma, unspecified asthma severity, unspecified whether complicated, unspecified whether persistent Problem 06/05/2020 12:00 :00 AM EST eCW1 ([facility]) J18.9 Pneumonia, unspecified organism Pneumonia, unspecified organism Problem 05/26/2020 12:00:00 AM EST NETSMART ([facility] ) B95.61 Methicillin susceptible Stap hylococcus aureus infection as the cause of diseases classified elsewhere Methicillin susceptible Staphylococcus a ureus infection as the cause of diseases classified elsewhere Problem 05/01/2020 12:00:00 AM EST NETSMART ([facility] ) B96.3 Hemophilus influenzae [H. in fluenzae] as the cause of diseases classified elsewhere Hemophilus influenzae [H. influenzae] as the cause of diseases classified elsewhere Problem 05/01/2020 12:00:00 AM EST NETSMART ([facility]) B96.89 Other specified bacterial ag ents as the cause of diseases classified elsewhere Other specified bacterial agents as the cause of diseases classified elsewhere Problem 05/01/2020 12:00:00 AM EST NETSMART ([facility]) M62.82 Rhabdomyolysis Rhabdomyolysis Problem 05/01/2020 12:00: 00 AM EST NETSMART ([facility]) J96.01 Acute respiratory failure with hypoxia A cute respiratory failure with hypoxia Problem 05/01/2020 12:00:00 AM EST NETSMART ([facility]) T40.1X1S Poisoning by heroin, accidental (uninten tional), sequela Poisoning by heroin, accidental (unintentional), sequela Problem 05/01/2020 12:00 :00 AM EST NETSMART ([facility]) G47.30 Sleep apnea, unspecified Sleep apnea, unspecified Prob jatinder 05/01/2020 12:00:00 AM EST NETSMART ([facility] ) E66.01 Morbid (severe) obesity due to excess ca lories Morbid (severe) obesity due to excess calories Problem 05/01/2020 12:00:00 AM EST NETSMART ( [facility]) F11.10 Opioid abuse, uncomplicated Opioid abuse, uncomplicate d Problem 05/01/2020 12:00:00 AM EST NETSMART ([facility] ) F12.10 Cannabis abuse, uncomplicated Cannabis abuse, uncompli cated Problem 05/01/2020 12:00:00 AM EST NETSMART ([facility] ) F14.10 Cocaine abuse, uncomplicated Cocaine abuse, uncomplica jaylan Problem 05/01/2020 12:00:00 AM EST NETSMART ([facility] ) F13.10 Sedative, hypnotic or anxiolytic abuse, uncomplicated Sedative, hypnotic or anxiolytic abuse, uncomplicated Problem 05/01/2020 12:00:00 AM ES T NETSMART ([facility]) Z91.81 History of falling History of falling Problem 0 12:00:00 AM EST NETSMART ([facility]) Z68.41 Body mass index [BMI]40.0-44.9, adult [place] dy mass index [BMI]40.0-44.9, adult Problem 05/01/2020 12:00:00 AM EST NETSMART ([facility]) subglottic stenosis subglottic stenosis Diagnosis 021 05:33:00 AM [facility] 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 Diagnosis 04/12/2020 02:27:00 PM EDT [facility] F17.210 Nicotine dependence, cigarettes, uncompl icated NICOTINE DEPENDENCE, CIGARETTES, UNCOMPLICATED Diagnosis 04/12/2020 02:27:00 PM EDT [facility] F19.10 Other psychoactive substance abuse, unco mplicated OTHER PSYCHOACTIVE SUBSTANCE ABUSE, UNCOMPLICATED Diagnosis 04/12/2020 02:27:00 PM EDT [facility] K52.9 Noninfective gastroenteritis and colitis , unspecified NONINFECTIVE GASTROENTERITIS AND COLITIS, UNSPECIF Diagnosis 04/12/2020 02:27:00 PM [facility] R10.84 Generalized abdominal pain GENERALIZED ABDOMINAL PAIN Diagnosis 04/12/2020 02:27:00 PM [facility] Results ID Date Data Source [id number] 06/08/2020 07:29:00 AM EST [facility] Name Value Range Interpretation Code Description Data Juany rce(s) Supporting Document(s) Respiratory pathogens identified [Type] in Nasopharynx by Probe and target amplification method [facility] This lab was ordered by [facility] a nd reported by [facility]. ID Date Data Source [id number] 04/14/2020 06:09:00 AM [facility] Patient: LILO MARTINEZ Observation Report - [facility]VisitID: [id number] [place] [address] [phone], MRegistration Date/Time: 04/12/2020 13:00 Weight:149.6 kg (S). [...] Current Smoker completed Curre nt Smoker eCW1 ([facility]) Smoking 06/18/2020 12:00:00 AM EST Current Smoker completed Curre nt Smoker eCW1 ([facility]) Smoking 06/18/2020 12:00:00 AM EST Current Smoker completed Curre nt Smoker eCW1 ([facility]) Smoking 06/18/2020 12:00:00 AM EST Current Smoker completed Curre nt Smoker eCW1 ([facility]) Smoking 06/05/2020 12:00:00 AM EST Current Smoker completed Curre nt Smoker eCW1 ([facility]) Vital Signs ID Date Data Source UNK Name Value Range Interpretation Code Description Data Source(s) Diastolic blood pressure 67 mm[Hg] 67 mm[Hg] eCW1 ([facility]) Systolic blood pressure 138 mm[Hg] 138 mm[Hg] e CW1 ([facility]) Body temperature 97.8 [degF] 97.8 [degF] eCW1 ( [facility]) Respiratory rate 16 /min 16 /min eCW1 ([facility]) Heart rate 77 /min 77 /min eCW1 ([facility]) Body mass index (BMI) [Ratio] 47.84 kg/m2 47.84 kg/m2 eCW1 ([facility]) Body height 69 [in_i] 69 [in_i] eCW1 ([facility]) Body weight 324 [lb_av] 324 [lb_av] eCW1 ([facility]) Diastolic blood pressure 59 mm[Hg] 59 mm[Hg] eCW1 ([facility]) Systolic blood pressure 111 mm[Hg] 111 mm[Hg] e CW1 ([facility]) Body temperature 96.9 [degF] 96.9 [degF] eCW1 ( [facility]) Respiratory rate 17 /min 17 /min eCW1 ([facility]) Heart rate 81 /min 81 /min eCW1 ([facility]) Body mass index (BMI) [Ratio] 47.84 kg/m2 47.84 kg/m2 W1 ([facility]) Body height 69 [in_i] 69 [in_i] eCW1 ([facility]) Body weight 324 [lb_av] 324 [lb_av] eCW1 ([facility]) ID Date Data Source [id number] 07/10/2020 05:33:49 AM EST [facility] Hospital Name Value Range Interpretation Code Description Data Source(s) TRANSFER FROM [facility] Patient Treatment Plan of Care Planned Activity Planned Date Details Description Data Source (s) 24 HR Nicotine 0.583 MG/HR Transdermal Patch [Nicoderm C-Q] 06/06/2020 12:00:00 AM EST eCW1 ([facility]) Albuterol Sulfate HFA 108 (90 Base) MCG/ACT 06/05/2020 12:00:00 AM EST eCW1 ([facility]) Albuterol Sulfate HFA 108 (90 Base) MCG/ACT 06/05/2020 12:00:00 AM EST eCW1 ([facility]) Albuterol Sulfate HFA 108 (90 Base) MCG/ACT 06/05/2020 12:00:00 AM EST eCW1 ([facility]) Albuterol Sulfate HFA 108 (90 Base) MCG/ACT 06/05/2020 12:00:00 AM EST eCW1 ([facility]) Prednisone 20 MG Oral Tablet 06/05/2020 12:00:00 AM EST eCW1 ([facility]) Albuterol Sulfate HFA 108 (90 Base) MCG/ACT 06/05/2020 12:00:00 AM EST eCW1 ([facility]) Albuterol 0.83 MG/ML Inhalant Solution 06/05/2020 12:00:00 AM EST eCW1 ([facility]) CloNIDine HCl 0.3 MG 05/30/2020 12:00:00 AM EST NETSMART ([facility]) Metoprolol Tartrate 25 MG 05/30/2020 12:00:00 AM EST NETSMART ([facility]) AmLODIPine Besylate 5 MG 05/30/2020 12:00:00 AM EST NETSMART ([facility]) Methadone HCl 10 MG 05/30/2020 12:00:00 AM EST NETSMART ([facility])
[2020-07-10 09:19] VITALS: BP 123/72
--- NOTE | 2020-07-10 20:40 | ECGEPIP ---
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
== END 2020-07-10 09:25 | disposition short-term general hospital (02) ==
LOC: M ED 00:29
DX: J96.91 Respiratory failure, unspecified with hypoxia (principal); J39.8 Other specified diseases of upper respiratory tract; E66.8 Other obesity; Z79.899 Other long term (current) drug therapy; Z79.891 Long term (current) use of opiate analgesic
CPT/HCPCS: 31500; 36600; 51702; 70491; 71045; 71260; 80048; 80076; 80307; 82330; 82550; 82553; 82947; 83605; 84132; 84295; 85014; 85025; 87040; 87077; 87186; 87486; 87581; 87633; 87798; 93005; 93041; 94760; 96365; 96366; 96368; 96375; 99291; G0480; J2250; J2543; J3370; Q9967

== ENCOUNTER → 2020-07-23 | Outpatient (CLI) | payer OTHER ==
[~2020-07-23] MED LIST changes: +LISI-542 PO; -LISI-898 PO
--- NOTE | 2020-07-23 14:14 | REP ---
INDICATION: ACUTE RESP FAILURE WITH HYPOXIA COMPARISON: 07/10/2020 TECHNIQUE: Axial noncontrast images from the thoracic inlet to the upper abdomen with coronal and sagittal reformations. This CT examination was performed using the following dose reduction techniques: Automated exposure control, adjustment of mA and/or kv according to the patient's size, and use of iterative reconstruction technique. FINDINGS: Lung ibrahim demonstrate very subtle "tree in bud" type interstitial pattern at the bilateral bases representing sequelae of prior infectious process which has considerably and near completely resolved. Minimal residual fibroatelectatic changes in the medial right base and left lower lobe are identified. No significant consolidation, effusion, or pneumothorax. Tracheobronchial tree is patent. No adenopathy. Mediastinum demonstrates normal thoracic aorta, pulmonary vasculature, and heart/pericardium. Surrounding musculoskeletal structures are intact. IMPRESSION: Essentially near complete resolution to the previously noted consolidations with minimal residual changes as described above. If the patient remains symptomatic consider follow-up examination to resolution. <Electronically signed by Alexandro Redd > 07/23/20 [id number]
== END ==
LOC: M RAD 08:19
PROVIDERS: ATTEND Otolaryngology
DX: J96.01 Acute respiratory failure with hypoxia (principal)

== ENCOUNTER → 2020-08-12 | Outpatient (CLI) | payer OTHER ==
[~2020-08-12] MED LIST changes: -LISI-542 PO; +LISI-898 PO
--- NOTE | 2020-08-14 11:25 | SLEEPCENT ---
NOCTURNAL POLYSOMNOGRAPHY DATE: 08/12/2020 ORDERED BY: Denton Arteaga D.O. Nocturnal polysomnography was performed for evaluation of sleep physiology in this patient with excessive somnolence and possible tracheal stenosis. 7 hours and 17 minutes of data were reviewed. There were 387.5 minutes of sleep identified. Sleep latency was normal at 19.5 minutes. REM latency was short at 46 minutes. Sleep architecture was good with three REM cycles noted. Overall sleep efficiency was 89.7%. The patient's electrocardiogram showed a sinus rhythm with an average heart rate of 75 beats per minute; rate range 60 to 85. EEG showed reasonably normal waveforms for wake and sleep. Some artifact was noted, but no focal events. There were 109 respiratory events identified of 10 seconds in duration or greater for an apnea-hypopnea index of 16.9. The events were primarily obstructive, 13 mixed and central apneas were seen. The events were not exclusive to sleep stage. They were more frequent in the supine posture. Arousals from respiratory events were seen 2.5 times per hour, and oxygen desaturations were seen into the 70s. There was some minor limb activity noted, but no trains of events. IMPRESSION: Obstructive sleep apnea syndrome (G47.33), apnea-hypopnea index 16.9. RECOMMENDATION: The patient should be encouraged to return to [facility] for [facility]. In the interim, alcohol and sedative avoidance should be practiced and caution exercised during the operation of motor vehicles. Dr. Ruiz
== END ==
LOC: M SLEEP 20:00
PROVIDERS: ATTEND Internal Medicine Pulmonary Disease
DX: G47.33 Obstructive sleep apnea (adult) (pediatric) (principal)

== ENCOUNTER → 2020-08-27 | Outpatient (REF) | payer OTHER | LOC: M SFHCLERA 15:13 | PROVIDERS: ATTEND Nurse Practitioner Family | DX: J02.9 Acute pharyngitis, unspecified (principal) ==

== ENCOUNTER → 2020-09-08 | Outpatient (CLI) | payer OTHER ==
--- NOTE | 2020-09-09 14:22 | SLEEPCENT ---
NOCTURNAL POLYSOMNOGRAPHY DATE: 09/08/2020 ORDERED BY: Denton Arteaga D.O. Nocturnal polysomnography was performed for the titration of pressure therapy in this patient with obstructive sleep apnea syndrome with apnea-hypopnea index of 16.9. For testing a ResMed AirFit F20 full face mask of medium size was used, 4 cm of water pressure were applied to the circuit, and the lights were extinguished. 7 hours and 4 minutes of data were reviewed. There were 266.5 minutes of sleep identified. Sleep latency was prolonged at 92 minutes. REM latency was normal at 64 minutes. Sleep architecture was good with four REM cycles. Overall sleep efficiency was 63.6%. The patient's electrocardiogram showed a sinus rhythm with an average heart rate of 75 beats per minute. EEG showed normal waveforms for wake and sleep. Respiratory events were fully palliated with CPAP at a pressure of 11 and remaining measures of sleep physiology were normal. IMPRESSION: Obstructive sleep apnea syndrome (G47.33). RECOMMENDATION: Nightly use of pressure therapy 11 cm of water.
== END ==
LOC: M SLEEP 20:00
PROVIDERS: ATTEND Internal Medicine Pulmonary Disease
DX: G47.33 Obstructive sleep apnea (adult) (pediatric) (principal)

== ENCOUNTER → 2020-11-28 | Outpatient (CLI) | payer OTHER ==
[2020-11-28 14:40] LABS: HEMATOCRIT 41.2 % (42.0-52.0); HEMOGLOBIN 13.4 g/dl (13.5-17.5); MEAN CORPUSCULAR HEMOGLOBIN 29.2 pg (27.0-33.0); MEAN CORPUSCULAR HGB CONC 32.5 g/dl (32.0-36.5); MEAN CORPUSCULAR VOLUME 89.8 fl (80.0-96.0); PLATELET COUNT, AUTOMATED 216 10^3/uL (150-450); RED BLOOD COUNT 4.59 10^6/uL (4.30-6.10); WHITE BLOOD COUNT 6.3 10^3/uL (4.0-10.0)
[2020-11-28 16:07] LABS: ALBUMIN 3.9 GM/DL (3.2-5.2); ALT/SGPT 35 U/L (12-78); BILIRUBIN,TOTAL 0.4 MG/DL (0.2-1.0); BLOOD UREA NITROGEN 16 MG/DL (7-18); CALCIUM LEVEL 8.9 MG/DL (8.5-10.1); CARBON DIOXIDE LEVEL 30 MEQ/L (21-32); CHLORIDE LEVEL 106 MEQ/L (98-107); CREATININE FOR GFR 0.84 MG/DL (0.70-1.30); GLOMERULAR FILTRATION RATE > 60.0 (>60); GLUCOSE, FASTING 101 MG/DL (70-100); POTASSIUM SERUM 4.1 MEQ/L (3.5-5.1); SODIUM LEVEL 141 MEQ/L (136-145); TOTAL PROTEIN 7.2 GM/DL (6.4-8.2)
[2020-11-28 16:27] LABS: HEPATITIS B SURFACE ANTIGEN NEGATIVE (NEGATIVE)
[2020-11-28 16:56] LABS: HEPATITIS C VIRUS ABY INDEX < 0.0 INDEX (<0.8); HIV 1&2 SCREEN CENTAUR NEGATIVE (NEGATIVE)
--- NOTE | 2020-11-29 10:21 | ECGEPIP ---
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
== END ==
LOC: M LAB 12:24
PROVIDERS: ATTEND Family Medicine
DX: F11.20 Opioid dependence, uncomplicated (principal)

== ENCOUNTER 2021-01-22 11:54 | Emergency (ER) | payer OTHER ==
[~2021-01-22] VITALS: Ht 175.3 cm; Wt 150.0 kg
[2021-01-22 11:54] VITALS: BP 135/84
[~2021-01-22 11:54] MED LIST changes: -CEFD1CAP8 PO; +CEFD300C41 PO; -LISI-898 PO; +LISI5TAB11 PO
[2021-01-22] MEDS ORDERED: METH10CO PO (12:02)
[2021-01-22 18:28] LABS: BASO % 0.6 % (0.0-1.0); EOS # 0.3 10^3/uL (0.0-0.5); EOS % 4.5 % (0.0-3.0); HEMATOCRIT 42.7 % (42.0-52.0); LYMPH # 2.7 10^3/uL (1.5-5.0); MEAN CORPUSCULAR HEMOGLOBIN 29.7 pg (27.0-33.0); MEAN CORPUSCULAR HGB CONC 32.8 g/dl (32.0-36.5); MEAN CORPUSCULAR VOLUME 90.5 fl (80.0-96.0); MONO # 0.6 10^3/uL (0.0-0.8); MONO % 9.2 % (2.0-8.0); NEUTROPHILS # 2.8 10^3/uL (1.5-8.5); NEUTROPHILS % 43.2 % (36.0-66.0); RED BLOOD COUNT 4.72 10^6/uL (4.30-6.10); WHITE BLOOD COUNT 6.4 10^3/uL (4.0-10.0)
== END 2021-01-22 19:12 | disposition home or self-care (01) ==
LOC: M ED 11:54
DX: R60.9 Edema, unspecified (principal); E66.9 Obesity, unspecified; Z79.890 Hormone replacement therapy; F17.210 Nicotine dependence, cigarettes, uncomplicated

== ENCOUNTER → 2022-05-06 | Outpatient (CLI) | payer OTHER ==
[~2022-05-06] MED LIST changes: +ALBU2.5V10 INH; -ALBU83IN INH; +METH10CO PO
[2022-05-06 14:52] LABS: HEMATOCRIT 39.4 % (42.0-52.0); HEMOGLOBIN 13.1 g/dl (13.5-17.5); MEAN CORPUSCULAR HEMOGLOBIN 29.3 pg (27.0-33.0); MEAN CORPUSCULAR HGB CONC 33.2 g/dl (32.0-36.5); MEAN CORPUSCULAR VOLUME 88.1 fl (80.0-96.0); PLATELET COUNT, AUTOMATED 214 10^3/uL (150-450); RED BLOOD COUNT 4.47 10^6/uL (4.30-6.10); WHITE BLOOD COUNT 5.7 10^3/uL (4.0-10.0)
[2022-05-06 16:46] LABS: GC DNA AMPLIFICATION NEGATIVE (NEGATIVE)
[2022-05-06 16:47] LABS: ALBUMIN 3.8 G/DL (3.2-5.2); ALT/SGPT 43 U/L (7.0-40); BILIRUBIN,TOTAL 0.4 MG/DL (0.3-1.2); BLOOD UREA NITROGEN 17 MG/DL (9-23); CALCIUM LEVEL 9.3 MG/DL (8.5-10.1); CARBON DIOXIDE LEVEL 28 MMOL/L (20-31); CHLORIDE LEVEL 104 MMOL/L (98-107); CREATININE FOR GFR 0.86 MG/DL (0.70-1.30); GLOMERULAR FILTRATION RATE > 60.0 (>60); GLUCOSE, FASTING 97 MG/DL (60-100); HEPATITIS B SURFACE ANTIGEN NEGATIVE (NEGATIVE); HIV 1&2 SCREEN CENTAUR NEGATIVE (NEGATIVE); POTASSIUM SERUM 4.1 MMOL/L (3.5-5.1); SODIUM LEVEL 140 MMOL/L (136-145); TOTAL PROTEIN 6.5 G/DL (5.7-8.2)
[2022-05-06 17:47] LABS: HEPATITIS C VIRUS ABY INDEX 0.1 INDEX (<0.8)
== END ==
LOC: M LAB 10:40
PROVIDERS: ATTEND Family Medicine
DX: F11.20 Opioid dependence, uncomplicated (principal)

== ENCOUNTER 2022-11-13 11:47 | Emergency (ER) | payer OTHER ==
[~2022-11-13] VITALS: Ht 177.8 cm; Wt 156.3 kg
[2022-11-13 11:48] VITALS: BP 158/84
== END 2022-11-13 14:49 | disposition home or self-care (01) ==
LOC: M ED 11:47
DX: S20.20XA Contusion of thorax, unspecified, initial encounter (principal); S60.221A Contusion of right hand, initial encounter; W22.8XXA Striking against or struck by other objects, initial encounter; Y92.89 Other specified places as the place of occurrence of the external cause; Y93.89 Activity, other specified; Y99.0 Civilian activity done for income or pay; R51.9 Headache, unspecified; I10 Essential (primary) hypertension; G47.33 Obstructive sleep apnea (adult) (pediatric); F19.10 Other psychoactive substance abuse, uncomplicated; F17.210 Nicotine dependence, cigarettes, uncomplicated

== ENCOUNTER 2023-03-10 16:37 | Emergency (ER) | payer OTHER ==
[~2023-03-10] VITALS: Ht 175.3 cm; Wt 164.2 kg
[2023-03-10 16:39] VITALS: BP 170/101; TEMP 98.5; O2SAT 100
== END 2023-03-10 19:42 | disposition left against medical advice (07) ==
LOC: M ED 16:37
DX: Z53.21 Procedure and treatment not carried out due to patient leaving prior to being seen by health care provider (principal)